=== PATIENT | female | born 1940 | race Caucasian/White ===

== ENCOUNTER 2016-04-21 20:32 | Inpatient (IN) | payer MEDICARE, OTHER ==
[2016-04-21] MEDS ORDERED: SODIUM CHLORIDE 0.9% 1,000 ML IV STA ×3 (20:39→21:09)
[2016-04-21] MEDS ORDERED: PROPOFOL 500 MG in EMPTY BAG 1 BAG IV ONE ×2 (20:45→22:34)
--- NOTE | 2016-04-21 20:51 | ED ---
General Adult HPI - General Chief complaint: Cardiac Arrest/CPR Stated complaint: cardiac Source: patient, RN notes reviewed, old records reviewed Mode of arrival: EMS Limitations: no limitations - History of Present Illness Initial comments: This is a 75-year-old female the ER for evaluation of altered mental status, unresponsiveness is a priorly one per EMS first CPR, per history and records patient's daughter was on the phone with patient and patient became unresponsive. When she got there patient remained unresponsive, patient may called EMS EMS arrived she was shocked and patient came to emergency room. Patient remains unresponsive although currently does have review of spontaneous circulation. Per report patient did lose pulse - Related Data Home Medications Medication Instructions Recorded Confirmed HYDROcodone/APAP 5-325MG [[place] 1 tab PO TID 04/25/15 04/21/16 5-325] Hydroxychloroquine Sulfate 200 mg PO BID 04/25/15 04/21/16 [Plaquenil] Losartan Potassium [Cozaar] 25 mg PO DAILY 04/25/15 04/21/16 Omeprazole [PriLOSEC] 40 mg PO BID 04/25/15 04/21/16 Sertraline [Zoloft] 100 mg PO DAILY 04/25/15 04/21/16 Simvastatin [Zocor] 20 mg PO HS 04/25/15 04/21/16 Spironolactone [Aldactone] 12.5 mg PO Q48H 04/25/15 04/21/16 Warfarin [Coumadin] 5 mg PO SUTH 04/25/15 04/21/16 traMADol HCL [Ultram] 100 mg PO DAILY PRN 04/25/15 04/21/16 Ascorbic Acid [Vitamin C] 500 mg PO DAILY 04/21/16 04/21/16 Baicalin/Catechin [Limbrel 500 mg 500 mg PO BID 04/21/16 04/21/16 Capsule] Bumetanide [Bumex] 0.5 mg PO Q48H 04/21/16 04/21/16 Carisoprodol [Soma] 350 mg PO DIRECTED 04/21/16 04/21/16 Cyanocobalamin (Vitamin B-12) 1,000 mcg PO DAILY 04/21/16 04/21/16 [Vitamin B-12] Docusate Sodium [Dok] 100 - 300 mg PO HS 04/21/16 04/21/16 Gabapentin [Neurontin] 600 mg PO BID 04/21/16 04/21/16 [place]-3 Fatty Acids/Fish Oil [Fish 1 cap PO TID 04/21/16 04/21/16 Oil 1,000 mg Softgel] RX: predniSONE 4 mg PO DAILY 04/21/16 04/21/16 Synthroid Unknown 1 tab PO DAILY 04/21/16 04/21/16 Warfarin [Coumadin] 7.5 mg PO MOTUWEFRSA 04/21/16 04/21/16 Allergies Allergy/AdvReac Type Severity Reaction Status Date / Time codeine Allergy Unknown Verified 04/21/16 20:43 meperidine HCl [From Demerol] Allergy Unknown Verified 04/21/16 20:43 Review of Systems ROS Statement: Those systems with pertinent positive or pertinent negative responses have been documented in the HPI. ROS Other: All systems not noted in ROS Statement are negative. Past Medical History Past Medical History: Atrial Fibrillation, CVA/TIA, Hyperlipidemia, Hypertension , Thyroid Disorder Additional Past Medical History / Comment(s): PMR History of Any Multi-Drug Resistant Organisms: None Reported Past Surgical History: Cardiac Ablation Additional Past Surgical History / Comment(s): lower back surgery Past Psychological History: Anxiety, Depression Smoking Status: Former smoker Past Alcohol Use History: None Reported Past Drug Use History: None Reported General Exam Limitations: altered mental status General appearance: alert, obtunded, in distress, obese Head exam: Present: atraumatic, normocephalic, normal inspection Eye exam: Present: normal appearance. Absent: scleral icterus, conjunctival injection, periorbital swelling ENT exam: Present: normal exam, mucous membranes moist Neck exam: Present: normal inspection. Absent: tenderness, meningismus, lymphadenopathy Respiratory exam: Present: normal lung sounds bilaterally. Absent: respiratory distress, wheezes, rales, rhonchi, stridor Cardiovascular Exam: Present: regular rate, normal rhythm, normal heart sounds. Absent: systolic murmur, diastolic murmur, rubs, gallop, clicks GI/Abdominal exam: Present: soft, normal bowel sounds. Absent: distended, tenderness, guarding, rebound, rigid Extremities exam: Present: normal inspection, full ROM, normal capillary refill. Absent: tenderness, pedal edema, joint swelling, calf tenderness Back exam: Present: normal inspection Neurological exam: Present: alert, oriented X3, CN II-XII intact Psychiatric exam: Present: normal affect, normal mood Skin exam: Present: warm, dry, intact, normal color. Absent: rash Course Vital Signs 04/21/16 04/21/16 04/21/16 20:33 21:09 21:22 Temperature 99.2 F Pulse Rate 97 101 H 100 Respiratory 14 18 18 Rate Blood Pressure 198/100 189/89 206/79 O2 Sat by Pulse 98 98 96 Oximetry 04/21/16 04/21/16 04/21/16 21:34 21:42 22:08 Temperature Pulse Rate 103 H 104 H 103 H Respiratory 18 18 18 Rate Blood Pressure 171/102 174/79 159/112 O2 Sat by Pulse 96 96 96 Oximetry 04/21/16 22:22 Temperature Pulse Rate 112 H Respiratory 18 Rate Blood Pressure 149/103 O2 Sat by Pulse 96 Oximetry - Reevaluation(s) Reevaluation #1: 04/21/16 22:38 Patient is showing purposeful movement Reevaluation #2: 04/21/16 22:38 Spoke with family greater than 50 minutes ago patient's condition, questions are answered EKG Findings - EKG Comments: EKG Findings:: EKG shows sinus rhythm at 94, para 214, QRS 90, QTC 490. Repeat. EKG shows sinus rhythm rate of 93, pO2 32, QRS home O2, QTC 407 Procedures - Intubation Time Out Performed: Yes Laryngoscope: Ben Size: 4 ET Tube Size: 7 ET Tube Uncuffed: Yes Tube Secured Location: teeth Tube Placement Confirmation: visualized tube passing through cords, equal breath sounds bilaterally Patient Tolerated Procedure: well Intubation Complications: none Medical Decision Making - Medical Decision Making 75 female coming in the ER for evaluation of cardiac arrest, recent GI illness, patient does have severe dehydration, patient currently is intubated sedated vital signs maintaining, CTA CT abdomen and pelvis negative for acute disease, troponin essentially negative, patient will be admitted to ICU for current evaluation and treatment, evaluation by cardiology, and intensive monitoring - Lab Data Result diagrams: 04/21/16 20:45 04/21/16 20:45 Lab Results 04/21/16 04/21/16 04/21/16 Range/Units 20:45 20:45 20:45 WBC 14.1 H (3.8-10.6) k/uL RBC 5.26 (3.80-5.40) m/uL Hgb 15.8 (11.4-16.0) gm/dL Hct 49.4 H (34.0-46.0) % MCV 94.1 (80.0-100.0) fL MCH 30.0 (25.0-35.0) pg MCHC 31.9 (31.0-37.0) g/dL RDW 13.8 (11.5-15.5) % Plt Count 295 (150-450) k/uL Neutrophils % (Manual) 65.0 % Band Neutrophils % 3.0 % Lymphocytes % (Manual) 26.0 % Monocytes % (Manual) 6.0 % Neutrophils # (Manual) 9.6 H (1.3-7.7) k/uL Lymphocytes # (Manual) 3.7 (1.0-4.8) k/uL Monocytes # (Manual) 0.8 (0-1.0) k/uL Nucleated RBCs 0 (0-0) /100 WBC Polychromasia Present PT (9.0-12.0) sec INR (<1.1) APTT (22.0-30.0) sec D-Dimer (<0.60) mg/L FEU VBG pH (7.31-7.41) VBG pCO2 (37-51) mmHg VBG HCO3 (24-28) mmol/L Sodium 143 (137-145) mmol/L Potassium 3.5 (3.5-5.1) mmol/L Chloride 106 (98-107) mmol/L Carbon Dioxide 17 L (22-30) mmol/L Anion Gap 20 mmol/L BUN 19 H (7-17) mg/dL Creatinine 1.03 (0.52-1.04) mg/dL Est GFR (MDRD) Af Amer >60 (>60 ml/min/1.73 sqM) Est GFR (MDRD) Non-Af 52 (>60 ml/min/1.73 sqM) Glucose 200 H (74-99) mg/dL Plasma Lactic Acid Carlitos (0.7-2.0) mmol/L Calcium 9.9 (8.4-10.2) mg/dL Phosphorus 5.7 H (2.5-4.5) mg/dL Magnesium 2.0 (1.6-2.3) mg/dL Total Bilirubin 1.2 (0.2-1.3) mg/dL AST 423 H (14-36) U/L ALT 339 H (9-52) U/L Alkaline Phosphatase 105 (38-126) U/L Total Creatine Kinase 174 H (30-135) U/L CK-MB (CK-2) 2.6 H* (0.0-2.4) ng/mL CK-MB (CK-2) Rel Index 1.5 Troponin I 0.092 H* (0.000-0.034) ng/mL NT-Pro-B Natriuret Pep pg/mL Total Protein 7.3 (6.3-8.2) g/dL Albumin 3.9 (3.5-5.0) g/dL 04/21/16 04/21/16 04/21/16 Range/Units 20:45 20:45 20:45 WBC (3.8-10.6) k/uL RBC (3.80-5.40) m/uL Hgb (11.4-16.0) gm/dL Hct (34.0-46.0) % MCV (80.0-100.0) fL MCH (25.0-35.0) pg MCHC (31.0-37.0) g/dL RDW (11.5-15.5) % Plt Count (150-450) k/uL Neutrophils % (Manual) % Band Neutrophils % % Lymphocytes % (Manual) % Monocytes % (Manual) % Neutrophils # (Manual) (1.3-7.7) k/uL Lymphocytes # (Manual) (1.0-4.8) k/uL Monocytes # (Manual) (0-1.0) k/uL Nucleated RBCs (0-0) /100 WBC Polychromasia PT 12.5 H (9.0-12.0) sec INR 1.3 (<1.1) APTT 22.9 (22.0-30.0) sec D-Dimer 4.24 H (<0.60) mg/L FEU VBG pH (7.31-7.41) VBG pCO2 (37-51) mmHg VBG HCO3 (24-28) mmol/L Sodium (137-145) mmol/L Potassium (3.5-5.1) mmol/L Chloride (98-107) mmol/L Carbon Dioxide (22-30) mmol/L Anion Gap mmol/L BUN (7-17) mg/dL Creatinine (0.52-1.04) mg/dL Est GFR (MDRD) Af Amer (>60 ml/min/1.73 sqM) Est GFR (MDRD) Non-Af (>60 ml/min/1.73 sqM) Glucose (74-99) mg/dL Plasma Lactic Acid Carlitos 9.5 H* (0.7-2.0) mmol/L Calcium (8.4-10.2) mg/dL Phosphorus (2.5-4.5) mg/dL Magnesium (1.6-2.3) mg/dL Total Bilirubin (0.2-1.3) mg/dL AST (14-36) U/L ALT (9-52) U/L Alkaline Phosphatase (38-126) U/L Total Creatine Kinase (30-135) U/L CK-MB (CK-2) (0.0-2.4) ng/mL CK-MB (CK-2) Rel Index Troponin I (0.000-0.034) ng/mL NT-Pro-B Natriuret Pep 4390 pg/mL Total Protein (6.3-8.2) g/dL Albumin (3.5-5.0) g/dL 04/21/16 Range/Units 20:45 WBC (3.8-10.6) k/uL RBC (3.80-5.40) m/uL Hgb (11.4-16.0) gm/dL Hct (34.0-46.0) % MCV (80.0-100.0) fL MCH (25.0-35.0) pg MCHC (31.0-37.0) g/dL RDW (11.5-15.5) % Plt Count (150-450) k/uL Neutrophils % (Manual) % Band Neutrophils % % Lymphocytes % (Manual) % Monocytes % (Manual) % Neutrophils # (Manual) (1.3-7.7) k/uL Lymphocytes # (Manual) (1.0-4.8) k/uL Monocytes # (Manual) (0-1.0) k/uL Nucleated RBCs (0-0) /100 WBC Polychromasia PT (9.0-12.0) sec INR (<1.1) APTT (22.0-30.0) sec D-Dimer (<0.60) mg/L FEU VBG pH 7.26 L (7.31-7.41) VBG pCO2 36 L (37-51) mmHg VBG HCO3 16 L (24-28) mmol/L Sodium (137-145) mmol/L Potassium (3.5-5.1) mmol/L Chloride (98-107) mmol/L Carbon Dioxide (22-30) mmol/L Anion Gap mmol/L BUN (7-17) mg/dL Creatinine (0.52-1.04) mg/dL Est GFR (MDRD) Af Amer (>60 ml/min/1.73 sqM) Est GFR (MDRD) Non-Af (>60 ml/min/1.73 sqM) Glucose (74-99) mg/dL Plasma Lactic Acid Carlitos (0.7-2.0) mmol/L Calcium (8.4-10.2) mg/dL Phosphorus (2.5-4.5) mg/dL Magnesium (1.6-2.3) mg/dL Total Bilirubin (0.2-1.3) mg/dL AST (14-36) U/L ALT (9-52) U/L Alkaline Phosphatase (38-126) U/L Total Creatine Kinase (30-135) U/L CK-MB (CK-2) (0.0-2.4) ng/mL CK-MB (CK-2) Rel Index Troponin I (0.000-0.034) ng/mL NT-Pro-B Natriuret Pep pg/mL Total Protein (6.3-8.2) g/dL Albumin (3.5-5.0) g/dL - Radiology Data Radiology results: report reviewed (Chest x-ray CTA and CT of the pelvis negative for acute disease), image reviewed Critical Care Time Critical Care Time: Yes Total Critical Care Time: 31 Disposition Clinical Impression: Cardiac arrest, Cardiopulmonary arrest Disposition[facility] Condition: Critical Referrals: Tejas Richard MD [Primary Care Provider] - 1-2 days
[2016-04-21 20:55] LABS: VBG PH 7.26 (7.31-7.41)
[2016-04-21 21:01] LABS: ALT 339 U/L (9-52); AST 423 U/L (14-36); Alkaline Phosphatase 105 U/L (38-126); Anion Gap 20 mmol/L; Blood Urea Nitrogen 19 mg/dL (7-17); Calcium 9.9 mg/dL (8.4-10.2); Carbon Dioxide 17 mmol/L (22-30); Chloride 106 mmol/L (98-107); Glucose 200 mg/dL (74-99); Non-African American GFR(MDRD) 52 (>60 ml/min/1.73 sqM); Phosphorous 5.7 mg/dL (2.5-4.5); Potassium 3.5 mmol/L (3.5-5.1); Sodium 143 mmol/L (137-145); Total Bilirubin 1.2 mg/dL (0.2-1.3); Total Protein 7.3 g/dL (6.3-8.2)
[2016-04-21 21:06] LABS: Aty Lym Flag Moderate; CH 30.4; CHCM 32.5; HCT 49.4 % (34.0-46.0); HDW 2.41; HGB 15.8 gm/dL (11.4-16.0); MCHC 31.9 g/dL (31.0-37.0); MCV 94.1 fL (80.0-100.0); Mean Platelet Volume 8.4; RBC 5.26 m/uL (3.80-5.40); RDW 13.8 % (11.5-15.5); WBC 14.1 k/uL (3.8-10.6); WBC (Perox) 14.26
[2016-04-21] MEDS ORDERED: RX INFO: IV CONTRAST WAS GIVEN 1 EACH MISC MISCELLANE PRN (21:09)
[2016-04-21 21:25] LABS: Add Differential Manual Differential
[2016-04-21 21:27] LABS: Nucleated Red Blood Cells 0 /100 WBC (0-0); Polychromasia Present; Total Cells Counted 100
[2016-04-21 21:29] LABS: Creatine Kinase MB 2.6 ng/mL (0.0-2.4); Troponin I 0.092 ng/mL (0.000-0.034)
[2016-04-21 21:40] LABS: INR 1.3 (<1.1); Partial Thromboplastin Time 22.9 sec (22.0-30.0); Prothrombin Time 12.5 sec (9.0-12.0)
--- NOTE | 2016-04-21 22:12 | CT ---
EXAMINATION TYPE: CT angio chest DATE OF EXAM: 04/21/2016 10:07 PM COMPARISON: 04/25/2015 HISTORY: Unresponsive. CT DLP: 1483.8 mGycm CONTRAST: CT chest with contrast and 3D reconstruction with MIP imaging is performed with IV Contrast, patient injected with 80 mL of Visipaque 320. Contrast-enhanced CT of the chest was performed through the course of the pulmonary arteries with aiden g and mediastinal window settings submitted. 3D reconstruction with MIP imaging was also performed. PULMONARY ARTERIES: The pulmonary arteries and their major tributaries are patent. I do not see aliya dence for sizable filling defect to suggest pulmonary embolic process. LUNGS: Endotracheal tube is appropriately positioned. The lungs are clear and free of infiltrate. Mil d linear basilar atelectasis. No pulmonary nodule or mass is detected. No pleural effusion. MEDIASTINUM: Thoracic aorta is of normal caliber . The heart is not enlarged. No evidence for media stinal mass. No mediastinal lymph nodes greater than 1cm. HILAR STRUCTURES: No evidence for mass. No hilar lymph nodes greater than 1 cm. UPPER ABDOMEN: No significant abnormality is seen. NG tube is seen coursing into the stomach. IMPRESSION: 1. No evidence for Pulmonary embolism at this time.
--- NOTE | 2016-04-21 22:15 | CT ---
EXAMINATION TYPE: CT abdomen pelvis w con DATE OF EXAM: 04/21/2016 10:07 PM COMPARISON: NONE HISTORY: Unresponsive CT DLP: 1483.8 mGycm CONTRAST: CT scan of the abdomen and pelvis is performed without Oral Contrast and with IV Contrast, patient in jected with 80 mL of Visipaque 320. Patient motion limits examination. FINDINGS: LUNG BASES-: No visible nodule. No infiltrate. LIVER/GB: Cholecystectomy changes seen. No space occupying hepatic lesion. Biliary tree is of norm al caliber. PANCREAS: No inflammation. No distinct mass. SPLEEN: No splenic enlargement. No lesion seen. ADRENALS: No nodule. No thickening. KIDNEYS/BLADDER: No hydronephrosis. No nephrolithiasis. No disctinct renal mass. Dominguez catheter is in place. BOWEL: Normal appendix. Normal bowel caliber. No inflammation. NG tube is seen within the stomach. GENITAL ORGANS: No gross abnormality. LYMPH NODES: No greater than 1cm abdominal or pelvic lymph nodes are appreciated. AORTA: No significant abnormality. OSSEOUS STRUCTURES: Degenerative changes lumbar spine. OTHER: No significant additional abnormality is seen. IMPRESSION: 1. No significant abnormality to account for the patient's symptoms.
[2016-04-21] MEDS ORDERED: NITROGLYCERIN SL TABS 0.4 MG TAB SUBLINGUAL PRN (22:38)
[2016-04-21] MEDS ORDERED: NALOXONE 0.4 MG/ML 1 ML VIAL IV PRN (22:38)
[2016-04-21 22:43] LABS: Appearance,Urine Cloudy (Clear); Bacteria,Urine Rare /hpf; Bilirubin,Urine Negative (Negative); Glucose,Urine (UA) Trace (Negative); Ketones,Urine 1+ (Negative); Leukocyte Esterase,Urine Negative (Negative); Nitrite,Urine Negative (Negative); Particle Count 10394; Protein,Urine 2+ (Negative); RBC,Urine 7 /hpf (0-5); Specific Gravity,Urine 1.013 (1.001-1.035); UA Billing (MACRO vs. MICRO) MICRO; Urobilinogen,Urine <2.0 mg/dL (<2.0); WBC,Urine 2 /hpf (0-5)
[2016-04-21] MEDS ORDERED: LORazepam 2 MG/ML SYRINGE IV STA (23:30)
[2016-04-21 23:40] LABS: Glucose,Whole Blood 196 mg/dL (75-99)
[2016-04-21 23:44] LABS: ABG PH 7.38 (7.35-7.45)
[2016-04-21 23:47] LABS: ABG Base Excess -7.5 mmol/L; ABG HCO3 17 mmol/L (21-25); ABG PCO2 29 mmHg (35-45); ABG PO2 220 mmHg (83-108); ABG TCO2 18 mmol/L (19-24)
--- NOTE | 2016-04-21 23:52 | CT ---
Exam: CT HEAD Without Contrast INDICATION: cpr TECHNIQUE: Multiple, contiguous 3 mm axial cuts of the brain are obtained from the posterior fossa to the cranial vault. Sagittal and coronal reformatted images provided. No IV contrast is administered. CT those index volume 57 mGy. , DLP 1098 mGy/cm COMPARISON: None FINDINGS: No intracranial hemorrhage, abnormal intra- or extra-axial collections or parenchymal lesions are seen. There are involutional changes with prominence of the sulci, basal cisterns and ventricles. Scattered white matter hypoattenuations are present, likely from small vessel disease. The moon-white differentiation is preserved. No evidence of mass effect, midline shift, or edema. The osseous structures are unremarkable. The visualized portions of the paranasal sinuses are clear. IMPRESSION: 1. No acute intracranial hemorrhage or acute intracranial process.. 2. Involutional changes with small vessel disease.
[2016-04-22] MEDS ORDERED: Potassium Replacement Protocol 1 EACH MISC MISCELLANE PRN (00:06)
[2016-04-22] MEDS: PROPOFOL 500 MG in EMPTY BAG 1 BAG IV SCH ×4 (00:30→06:00)
[2016-04-22] MEDS ORDERED: cloNIDine 0.3 MG/24HR PATCH 1 PATCH PATCH TRANSDERM SCH ×2 (00:45→13:30)
[2016-04-22] MEDS: POTASSIUM CHLORIDE 10 MEQ, LIDOCAINE 2% INJ 10 MG in SODIUM CHLORIDE 0.9% 100 ML IV SCH ×2 (01:19→02:26)
[2016-04-22] MEDS: SODIUM CHLORIDE 0.9% 1,000 ML IV SCH ×3 (01:20→19:28)
[2016-04-22] MEDS: HYDROmorphone 2 MG/ML 1 ML SYRINGE IVP PRN (01:57)
[2016-04-22 03:20] LABS: ALT 268 U/L (9-52); AST 273 U/L (14-36); Alkaline Phosphatase 81 U/L (38-126); Anion Gap 10 mmol/L; Blood Urea Nitrogen 17 mg/dL (7-17); Calcium 8.4 mg/dL (8.4-10.2); Carbon Dioxide 22 mmol/L (22-30); Chloride 112 mmol/L (98-107); Cholesterol 130 mg/dL (<200); Glucose 183 mg/dL (74-99); HDL Cholesterol 48 mg/dL (40-60); Magnesium 1.6 mg/dL (1.6-2.3); Non-African American GFR(MDRD) >60 (>60 ml/min/1.73 sqM); Phosphorous 3.3 mg/dL (2.5-4.5); Potassium 3.2 mmol/L (3.5-5.1); Sodium 144 mmol/L (137-145); Total Bilirubin 0.7 mg/dL (0.2-1.3); Total Protein 5.9 g/dL (6.3-8.2); Triglycerides 86 mg/dL (<150)
[2016-04-22 03:40] LABS: Aty Lym Flag Moderate; CH 30.3; CHCM 32.5; HCT 45.7 % (34.0-46.0); HDW 2.42; HGB 14.1 gm/dL (11.4-16.0); MCH 28.9 pg (25.0-35.0); MCHC 30.8 g/dL (31.0-37.0); MCV 93.7 fL (80.0-100.0); RBC 4.87 m/uL (3.80-5.40); RDW 13.9 % (11.5-15.5); WBC 18.3 k/uL (3.8-10.6); WBC (Perox) 18.74
[2016-04-22 03:51] LABS: Troponin I 1.12 ng/mL (0.000-0.034)
[2016-04-22 04:19] LABS: Add Differential Manual Differential
[2016-04-22 04:21] LABS: Nucleated Red Blood Cells 0 /100 WBC (0-0); Total Cells Counted 100
[2016-04-22 04:22] LABS: Manual Review Performed
[2016-04-22] MEDS ORDERED: Magnesium Replacement Protocol 1 EACH MISC MISCELLANE PRN (04:52)
[2016-04-22 05:10] LABS: ABG Base Excess -5.1 mmol/L; ABG HCO3 20 mmol/L (21-25); ABG Oxygen Saturation 98.9 % (94-97); ABG PCO2 36 mmHg (35-45); ABG PH 7.35 (7.35-7.45); ABG PO2 134 mmHg (83-108); ABG TCO2 21 mmol/L (19-24)
[2016-04-22 07:29] LABS: Glucose,Whole Blood 111 mg/dL (75-99)
[2016-04-22] MEDS: MAGNESIUM SULFATE-D5W PMX 1 GM in DEXTROSE/WATER 1 100ML.BAG IVPB SCH ×4 (07:29→19:53)
[2016-04-22 07:40] LABS: Glucose,Whole Blood 194 mg/dL (75-99)
--- NOTE | 2016-04-22 08:19 | XR ---
EXAMINATION TYPE: XR chest 1V DATE OF EXAM: 04/22/2016 6:32 AM COMPARISON: Prior chest x-ray 22 April 2016 HISTORY: Intubation TECHNIQUE: Single frontal view of the chest is obtained. FINDINGS: Endotracheal tube, NG tube are overlying appropriate positions. The heart remains enlarged . There are overlying cardiac leads. No pneumothorax. Pulmonary vascularity and zina not significantl y changed. Interstitium mildly increased. Patient is rotated. IMPRESSION: Marked cardiomegaly. Difficult to exclude a component of volume overload.
[2016-04-22] MEDS: IPRATROPIUM-ALBUTEROL 3 ML NEB INHALATION PRN ×3 (08:43→15:06)
[2016-04-22 08:55] LABS: Anion Gap 10 mmol/L; Carbon Dioxide 20 mmol/L (22-30); Chloride 116 mmol/L (98-107); Glucose 130 mg/dL (74-99); Non-African American GFR(MDRD) 58 (>60 ml/min/1.73 sqM); Sodium 146 mmol/L (137-145)
[2016-04-22] MEDS: CHLORHEXIDINE GLUCONATE 15 ML CUP MUCOUS MEM SCH ×2 (09:02→20:57)
[2016-04-22] MEDS: PANTOPRAZOLE 40 MG/10 ML VIAL IV SCH (09:02)
[2016-04-22 09:03] LABS: Potassium 4.2 mmol/L (3.5-5.1)
[2016-04-22 09:04] LABS: Blood Urea Nitrogen 17 mg/dL (7-17)
--- NOTE | 2016-04-22 09:23 | XR ---
EXAMINATION TYPE: XR chest 1V portable DATE OF EXAM: 04/21/2016 8:53 PM HISTORY: Shortness of breath. COMPARISON: 04/25/2015 TECHNIQUE: Single view of the chest is submitted. FINDINGS: Endotracheal tube is appropriately placed and demonstrates its distal tip 3.3 cm from the nika. Demonstrated are scattered senescent parenchymal change. There is no evidence for focal infiltrate. The heart is enlarged. Hilar and mediastinal structures are within normal limits. Degenerative changes are seen of the dorsal spine. IMPRESSION: 1. Chronic changes without evidence for acute pulmonary disease. 2. Endotracheal tube as noted
[2016-04-22 09:31] LABS: Creatine Kinase MB 9.2 ng/mL (0.0-2.4); Troponin I 1.01 ng/mL (0.000-0.034)
--- NOTE | 2016-04-22 09:32 | ECHOF ---
Referral Reason:cpa MEASUREMENTS -------- HEIGHT: 165.1 cm WEIGHT: 100.2 kg BP: 142/57 RVIDd: 2.4 cm (< 3.3) IVSd: 1.2 cm (0.6 - 1.1) LVIDd: 4.5 cm (3.9 - 5.3) LVPWd: 1.2 cm (0.6 - 1.1) IVSs: 2.0 cm LVIDs: 3.2 cm LVPWs: 1.3 cm LA Diam: 3.0 cm (2.7 - 3.8) LAESV Index (A-L): 24.93 ml/m Ao Diam: 3.1 cm (2.0 - 3.7) AV Cusp: 1.6 cm (1.5 - 2.6) MV EXCURSION: 12.690 mm (> 18.000) MV EF SLOPE: 9 mm/s (70 - 150) EPSS: 0.8 cm MV E Rod: 0.77 m/s MV DecT: 184 ms MV A Rod: 0.28 m/s MV E/A Ratio: 2.73 AV maxP.98 mmHg AV meanP.43 mmHg RAP: 5.00 mmHg RVSP: 31.76 mmHg FINDINGS -------- This was a technically adequate study. The left ventricular size is normal. There is borderline concentric left ventricular hypertrophy. Overall left ventricular systolic function is normal with, an EF between 55 - 60 %. Apical hypetrophy with 17 mm wall thickness The right ventricle is normal in size and function. Normal LA size by volume 22+/-6 ml/m2. The right atrium is normal in size. Aortic valve is trileaflet and is mildly thickened. Mild mitral annular calcification present. The tricuspid valve appears structurally normal. Mild tricuspid regurgitation present. The pulmonic valve was not well visualized. The aortic root size is normal. There is no pericardial effusion. CONCLUSIONS -------- 1. This was a technically adequate study. 2. Mild mitral annular calcification present. 3. The tricuspid valve appears structurally normal. 4. Mild tricuspid regurgitation present. 5. The pulmonic valve was not well visualized. 6. The aortic root size is normal. 7. There is no pericardial effusion. 8. The left ventricular size is normal. 9. There is borderline concentric left ventricular hypertrophy. 10. Overall left ventricular systolic function is normal with, an EF between 55 - 60 %. 11. Apical hypetrophy with 17 mm wall thickness 12. The right ventricle is normal in size and function. 13. Normal LA size by volume 22+/-6 ml/m2. 14. The right atrium is normal in size. 15. Aortic valve is trileaflet and is mildly thickened. STEAM ENGINEER: Bernarda Larry RDCS
[2016-04-22] MEDS: LEVOTHYROXINE 100 MCG TAB PO SCH (10:20)
[2016-04-22] MEDS: ENOXAPARIN 40 MG/0.4 ML SYRINGE SQ SCH ×2 (10:20→10:33)
[2016-04-22] MEDS ORDERED: HEPARIN SODIUM,PORCINE 5,000 UNIT/ML 1 ML VIAL IV PRN (10:21)
[2016-04-22] MEDS: HYDROCORTISONE SUCCINATE 100 MG/2 ML VIAL IV SCH ×2 (10:22→15:53)
[2016-04-22] MEDS: LEVOTHYROXINE 75 MCG TAB PO SCH (10:23)
[2016-04-22] MEDS: GABAPENTIN 300 MG CAP PO SCH ×2 (10:23→20:59)
[2016-04-22] MEDS ORDERED: DEXTROSE 5% IN WATER 100 ML with AMIODARONE 150 MG IV ONE (10:57)
[2016-04-22] MEDS ORDERED: AMIODARONE 450 MG in DEXTROSE 5% IN WATER 250 ML IV SCH ×2 (11:00)
[2016-04-22] MEDS: ASPIRIN 81 MG CHEW PO SCH (11:02)
[2016-04-22] MEDS: METOPROLOL TARTRATE 25 MG TAB PO SCH ×2 (11:03→22:54)
[2016-04-22] MEDS: HEPARIN SODIUM,PORCINE/D5W PMX 25,000 UNIT in DEXTROSE/WATER 1 500ML.BAG IV SCH (11:03)
[2016-04-22 11:14] LABS: Aty Lym Flag Moderate; CH 30.2; CHCM 32.6; HCT 45.3 % (34.0-46.0); HGB 14.4 gm/dL (11.4-16.0); MCH 29.5 pg (25.0-35.0); MCHC 31.8 g/dL (31.0-37.0); MCV 92.9 fL (80.0-100.0); Mean Platelet Volume 7.1; RBC 4.88 m/uL (3.80-5.40); RDW 13.9 % (11.5-15.5); WBC 16.6 k/uL (3.8-10.6); WBC (Perox) 17.86
[2016-04-22 11:41] LABS: INR 1.2 (<1.1); Partial Thromboplastin Time 23.7 sec (22.0-30.0); Prothrombin Time 11.8 sec (9.0-12.0)
[2016-04-22 11:42] LABS: Add Differential Manual Differential
[2016-04-22 11:43] LABS: Nucleated Red Blood Cells 0 /100 WBC (0-0); Total Cells Counted 100
[2016-04-22 11:44] LABS: Manual Review Performed
[2016-04-22 11:45] LABS: RBC Morphology Normal
[2016-04-22] MEDS ORDERED: cloNIDine 0.1 MG/24HR PATCH 1 PATCH PATCH TRANSDERM SCH (12:00)
[2016-04-22] MEDS ORDERED: LABETALOL SYRINGE 5 MG/ML IVP PRN ×2 (12:46→15:12)
[2016-04-22 13:01] LABS: Glucose,Whole Blood 167 mg/dL (75-99)
[2016-04-22] MEDS: INSULIN LISPRO (humaLOG) 300 UNIT/3 ML VIAL SQ SCH ×2 (13:28→19:34)
[2016-04-22 14:08] LABS: Hemoglobin A1C 5.8 % (4.2-6.1)
--- NOTE | 2016-04-22 14:41 | US ---
EXAMINATION TYPE: US carotid duplex BILAT DATE OF EXAM: 04/22/2016 2:19 PM COMPARISON: NONE CLINICAL HISTORY: cardiac arrest. Altered mental status, patient unresponsive EXAM MEASUREMENTS: RIGHT: Peak Systolic Velocity (PSV) cm/sec ----- Right CCA: 61.2 ----- Right ICA: 71.6 ----- Right ECA: 67.7 ICA/CCA ratio: 1.2 RIGHT: End Diastole cm/sec ----- Right CCA: 10.3 ----- Right ICA: 9.0 ----- Right ECA: 7.7 LEFT: Peak Systolic Velocity (PSV) cm/sec ----- Left CCA: 55.9 ----- Left ICA: 61.2 ----- Left ECA: 79.4 ICA/CCA ratio: 1.1 LEFT: End Diastole cm/sec ----- Left CCA: 8.7 ----- Left ICA: 16.8 ----- Left ECA: 6.4 VERTEBRALS (direction of flow): Right Vertebral: Antegrade Left Vertebral: questionable retrograde TECHNOLOGIST IMPRESSION: intubated, unresponsive patient, technically challenging. Minimal atherosclerotic changes in bilateral bulbs, no hemodynamic stenosis, question of retrograde f low in left vertebral Arrhythmia may be present. Grayscale, color Doppler, spectral Doppler imaging performed of the caroti d arteries. IMPRESSION: No hemodynamic significant stenosis of the proximal internal carotid arteries bilaterall y by Doppler criteria, and indirect measurement of carotid stenosis. 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 Criteria for Assigning % of Stenosis / Diameter reduction (Estimation based on the indirect measurements of the internal carotid artery velocities (ICA PSV). 1. Normal (no stenosis)=ICA PSV < 125 cm/s: ratio < 2.0: ICA EDV<40 cm/s. 2. Less than 50% stenosis=ICA PSV < 125 cm/s: ratio < 2.0: ICA EDV<40 cm/s. 3. 50 to 69% stenosis=ICA PSV of 125 to 230 cm/s: ration 2.0 ? 4.0: ICA EDV 40-100 cm/s. 4. Greater than 70% stenosis to near occlusion= ICA PSV > 230 cm/s: ratio > 4.0: ICA EDV > 100 cm/s. 5. Near occlusion= ICA PSV velocities may be low or undetectable: variable ratio and ICA EDV. 6. Total occlusion=unable to detect flow.
--- NOTE | 2016-04-22 14:46 | P.HPIM ---
History of Present Illness H&P Date: 04/22/16 Chief Complaint: Acute cardiopulmonary arrest This is a 75-year-old female one of my patient with a previous medical history significant for hypertension and hypertensive cardio vascular disease with left ventricular hypertrophy, hyperlipidemia, history of atrial flutter/fibrillation status post 3 ablation therapy under the care of cardiology , rheumatoid arthritis, polymyalgia rheumatica, fibromyalgia, hypothyroidism, patient developed to have a significant upper respiratory tract infection that was treated about 10 days ago and the patient was feeling fine up until Wednesday when she started to feel bad again, yesterday she was talking to her daughter on the phone and the patient was having episodes of nausea vomiting and diarrhea for the past 48 hours, felt generally weak,and while she was talking with her daughter on the phone trying to get back to see her patient became unresponsive and the patient daughter got there and patient was laying in bed unresponsive according to her there was a pulse of that time period and after that she lost her pulse and she started CPR by herself and she called 911 at the same time and EMS where there within 5 minutes and according to the daughter due to the total downtime was not more than 10 minutes probably 15 minutes patient was intubated in the scene she was shocked once and she was transported to [facility] where she was placed on the ventilator she was given IV fluid resuscitation she was admitted to the hospital she had a computed tomography scan of the chest abdomen and pelvis without any acute abnormalities there was no evidence of pulmonary embolism, she had a computed tomography scan of the brain that did not show any evidence of acute abnormalities, patient was admitted to the hospital she was placed on the ventilator and she was seen in consultation by pulmonary medicine as well as by cardiology, her cardiac enzymes came back positive her troponin was slightly elevated suggestive of non-ST elevation OR. Review of Systems ROS unobtainable: due to endotracheal tube, due to mental status Past Medical History Past Medical History: Atrial Fibrillation, Atrial Flutter, Coronary Artery Disease (CAD), CVA/TIA, Fibromyalgia, GERD/Reflux, Hyperlipidemia, Hypertension , Myocardial Infarction (non Q-wave), Osteoarthritis (OA), Rheumatoid Arthritis (RA), Thyroid Disorder Additional Past Medical History / Comment(s): Polymyalgia rheumatica, hypothyroidism, hyperlipidemia, atrial fibrillation/flutter status post previous cardiac ablation History of Any Multi-Drug Resistant Organisms: None Reported Past Surgical History: Cardiac Ablation, Section, Cholecystectomy, Tonsillectomy Additional Past Surgical History / Comment(s): lower back surgery x2 Past Anesthesia/Blood Transfusion Reactions: No Reported Reaction Past Psychological History: Anxiety, Depression Smoking Status: Former smoker (Patient used to smoke a pack every day for about 10-15 years and she quit about 30 years ago.) Past Alcohol Use History: None Reported Past Drug Use History: None Reported - Past Family History Mother Family Medical History: Cancer (Mother at age 66 from throat cancer metastasized to the lung.) Additional Family Medical History / Comment(s): lung cancer, depression Father Family Medical History: AICD/Pacemaker, CVA/TIA (Father at age 71 from CAD , he had a permanent pacemaker, and he developed to have a 2 CVA) Brother(s) Family Medical History: AFIB (Patient has 2 brothers one of them with atrial fibrillation and other one CAD post CABG.), Coronary Artery Disease (CAD) Sister(s) Family Medical History: No Reported History (Patient has one sister who major medical problems.) Daughter(s) Family Medical History: No Reported History (Patient has one daughter major medical problems.) Medications and Allergies Home Medications Medication Instructions Recorded Confirmed Type HYDROcodone/APAP 5-325MG [[place] 1 tab PO TID 04/25/15 04/21/16 History 5-325] Hydroxychloroquine Sulfate 200 mg PO BID 04/25/15 04/21/16 History [Plaquenil] Losartan Potassium [Cozaar] 25 mg PO DAILY 04/25/15 04/21/16 History Omeprazole [PriLOSEC] 40 mg PO BID 04/25/15 04/21/16 History Sertraline [Zoloft] 100 mg PO DAILY 04/25/15 04/21/16 History Simvastatin [Zocor] 20 mg PO HS 04/25/15 04/21/16 History Spironolactone [Aldactone] 12.5 mg PO Q48H 04/25/15 04/21/16 History Warfarin [Coumadin] 5 mg PO SUTH 04/25/15 04/21/16 History traMADol HCL [Ultram] 100 mg PO DAILY PRN 04/25/15 04/21/16 History Ascorbic Acid [Vitamin C] 500 mg PO DAILY 04/21/16 04/21/16 History Baicalin/Catechin [Limbrel 500 mg 500 mg PO BID 04/21/16 04/21/16 History Capsule] Bumetanide [Bumex] 0.5 mg PO Q48H 04/21/16 04/21/16 History Carisoprodol [Soma] 350 mg PO DIRECTED 04/21/16 04/21/16 History Cyanocobalamin (Vitamin B-12) 1,000 mcg PO DAILY 04/21/16 04/21/16 History [Vitamin B-12] Docusate Sodium [Dok] 100 - 300 mg PO HS 04/21/16 04/21/16 History Gabapentin [Neurontin] 600 mg PO BID 04/21/16 04/21/16 History [place]-3 Fatty Acids/Fish Oil [Fish 1 cap PO TID 04/21/16 04/21/16 History Oil 1,000 mg Softgel] Warfarin [Coumadin] 7.5 mg PO MOTUWEFRSA 04/21/16 04/21/16 History predniSONE 4 mg PO DAILY 04/21/16 04/21/16 History Levothyroxine Sodium [Synthroid] 175 mcg PO DAILY 04/22/16 04/22/16 History Allergies Allergy/AdvReac Type Severity Reaction Status Date / Time codeine Allergy Unknown Verified 04/21/16 20:43 meperidine HCl [From Demerol] Allergy Unknown Verified 04/21/16 20:43 Physical Exam Vitals: Vital Signs Temp Pulse Pulse Resp BP BP Pulse Ox 04/22/16 13:00 99.0 F 92 26 H 188/82 97 04/22/16 12:00 80 32 H 175/82 97 04/22/16 11:50 81 04/22/16 11:30 78 04/22/16 11:00 89 50 H 176/84 96 04/22/16 10:00 86 25 H 197/94 97 04/22/16 09:11 79 04/22/16 09:00 66 23 123/57 99 04/22/16 08:50 72 04/22/16 08:00 68 24 119/57 98 04/22/16 07:00 98.4 F 59 L 23 113/57 98 04/22/16 06:00 67 23 96/49 97 04/22/16 05:00 71 23 98 04/22/16 04:00 98.3 F 85 24 85/54 97 04/22/16 03:00 95 24 93/58 97 04/22/16 02:00 100 23 93/58 98 04/22/16 01:00 104 H 29 H 224/113 98 04/22/16 00:00 97.8 F 99 29 H 194/98 99 04/21/16 23:45 98.1 F 110 H 18 147/76 98 04/21/16 23:41 99 04/21/16 23:15 102 H 18 153/94 98 04/21/16 23:07 97.8 F 111 H 24 197/98 99 04/21/16 23:00 102 H 18 137/96 98 04/21/16 22:53 101 H 18 135/79 98 04/21/16 22:43 107 H 18 147/69 98 Intake and Output 04/21/16 04/22/16 04/22/16 22:59 06:59 14:59 Intake Total 2095.143 2022.355 Output Total 925 563 Balance 6952.929 3534.355 Intake: IV 700 700 Sodium Chloride 0.9% 1, 700 700 000 ml @ 100 mls/hr IV . Q10H STA Rx#:[id number] Intake, IV Titration 2898.979 1363.355 Amount Amiodarone 450 mg In 99.9 Dextrose 5% in Water 250 ml @ 1 MG/MIN 34.53 mls/ hr IV .Q7H31M MAGAN Rx#: [id number] Dextrose 5% in Water 100 100 ml @ 618 mls/hr IV .Q10M ONE with Amiodarone 150 mg Rx#:[id number] Heparin Sodium,Porcine/ 57.3 D5w Pmx 25,000 unit In Dextrose/Water 1 500ml. bag @ 9.95 UNITS/KG/HR 19 .99 mls/hr IV .Q24H MAGAN Rx#:[id number] Magnesium Sulfate-D5w Pmx 100 1 gm In Dextrose/Water 1 100ml.bag @ 100 mls/hr IVPB Q1H MAGAN Rx#: [id number] Potassium Chloride 10 meq 200 Lidocaine 2% Inj 10 mg In Sodium Chloride 0.9% 100 ml @ 100 mls/hr IV Q1HR MAGAN Rx#:[id number] Propofol 500 mg In Empty 20.1 Bag 1 bag @ Titrate IV . Q0M ONE Rx#:[id number] Propofol 500 mg In Empty 96.143 46.055 Bag 1 bag @ Titrate IV . Q0M [facility] Rx#:[id number] Sodium Chloride 0.9% 1, 999 999 000 ml @ 100 mls/hr IV . Q10H MAGAN Rx#:[id number] Output: Urine 925 363 Emesis 200 Other: Voiding Method Indwelling Catheter Indwelling Catheter Weight 100.5 kg 100.5 kg Patient Weight 04/23/16 06:59 Weight 100.5 kg - Constitutional General appearance: obese, severe distress - EENT Eyes: no EOMI, no PERRLA, no scleral icterus, no normal appearance ENT: other (ET tube in andOGT in place.) Ears: bilateral: normal - Neck Neck: no lymphadenopathy, no rigidity, no stridor, no thyromegaly Carotids: bilateral: upstroke normal Thyroid: bilateral: normal size - Respiratory Respiratory: bilateral: diminished, negative: dullness, rales, rhonchi, wheezing , prolonged expiration, prolonged inspiration - Cardiovascular Rhythm: regular Heart sounds: normal: S1, S2 Abnormal Heart Sounds: systolic murmur, no rub - Gastrointestinal General gastrointestinal: decreased bowel sounds, soft, no splenomegaly, no tenderness, no umbilical hernia, no ventral hernia - Integumentary Integumentary: normal, normal turgor - Neurologic Neurologic: focal deficits - Psychiatric Psychiatric: no A&O x's 3, no appropriate affect, no intact judgment & insight Results CBC & Chem 7: 04/22/16 10:55 04/22/16 08:25 Labs: Abnormal Lab Results - Last 24 Hours (Table) 04/21/16 04/21/16 04/22/16 Range/Units 23:20 23:38 00:10 WBC (3.8-10.6) k/uL MCHC (31.0-37.0) g/dL Neutrophils # (Manual) (1.3-7.7) k/uL Lymphocytes # (Manual) (1.0-4.8) k/uL ABG pCO2 29 L (35-45) mmHg ABG pO2 220 H (83-108) mmHg ABG HCO3 17 L (21-25) mmol/L ABG Total CO2 18 L (19-24) mmol/L ABG O2 Saturation 99.0 H (94-97) % Sodium (137-145) mmol/L Potassium (3.5-5.1) mmol/L Chloride (98-107) mmol/L Carbon Dioxide (22-30) mmol/L Glucose (74-99) mg/dL POC Glucose (mg/dL) 196 H (75-99) mg/dL Plasma Lactic Acid [place] 2.7 H* (0.7-2.0) mmol/L Calcium (8.4-10.2) mg/dL AST (14-36) U/L ALT (9-52) U/L Total Creatine Kinase (30-135) U/L CK-MB (CK-2) (0.0-2.4) ng/mL Troponin I (0.000-0.034) ng/mL Total Protein (6.3-8.2) g/dL Albumin (3.5-5.0) g/dL 04/22/16 04/22/16 04/22/16 Range/Units 02:35 02:35 02:35 WBC 18.3 H (3.8-10.6) k/uL MCHC 30.8 L (31.0-37.0) g/dL Neutrophils # (Manual) 17.4 H (1.3-7.7) k/uL Lymphocytes # (Manual) (1.0-4.8) k/uL ABG pCO2 (35-45) mmHg ABG pO2 (83-108) mmHg ABG HCO3 (21-25) mmol/L ABG Total CO2 (19-24) mmol/L ABG O2 Saturation (94-97) % Sodium (137-145) mmol/L Potassium 3.2 L (3.5-5.1) mmol/L Chloride 112 H (98-107) mmol/L Carbon Dioxide (22-30) mmol/L Glucose 183 H (74-99) mg/dL POC Glucose (mg/dL) (75-99) mg/dL Plasma Lactic Acid [place] (0.7-2.0) mmol/L Calcium (8.4-10.2) mg/dL AST 273 H (14-36) U/L ALT 268 H (9-52) U/L Total Creatine Kinase 287 H (30-135) U/L CK-MB (CK-2) 6.0 H* (0.0-2.4) ng/mL Troponin I 1.120 H* (0.000-0.034) ng/mL Total Protein 5.9 L (6.3-8.2) g/dL Albumin 3.1 L (3.5-5.0) g/dL 04/22/16 04/22/16 04/22/16 Range/Units 05:00 07:27 08:25 WBC (3.8-10.6) k/uL MCHC (31.0-37.0) g/dL Neutrophils # (Manual) (1.3-7.7) k/uL Lymphocytes # (Manual) (1.0-4.8) k/uL ABG pCO2 (35-45) mmHg ABG pO2 134 H (83-108) mmHg ABG HCO3 20 L (21-25) mmol/L ABG Total CO2 (19-24) mmol/L ABG O2 Saturation 98.9 H (94-97) % Sodium (137-145) mmol/L Potassium (3.5-5.1) mmol/L Chloride (98-107) mmol/L Carbon Dioxide (22-30) mmol/L Glucose (74-99) mg/dL POC Glucose (mg/dL) 111 H (75-99) mg/dL Plasma Lactic Acid [place] (0.7-2.0) mmol/L Calcium (8.4-10.2) mg/dL AST (14-36) U/L ALT (9-52) U/L Total Creatine Kinase 549 H (30-135) U/L CK-MB (CK-2) 9.2 H* (0.0-2.4) ng/mL Troponin I 1.010 H* (0.000-0.034) ng/mL Total Protein (6.3-8.2) g/dL Albumin (3.5-5.0) g/dL 04/22/16 04/22/16 04/22/16 Range/Units 08:25 10:55 13:00 WBC 16.6 H (3.8-10.6) k/uL MCHC (31.0-37.0) g/dL Neutrophils # (Manual) 15.3 H (1.3-7.7) k/uL Lymphocytes # (Manual) 0.3 L (1.0-4.8) k/uL ABG pCO2 (35-45) mmHg ABG pO2 (83-108) mmHg ABG HCO3 (21-25) mmol/L ABG Total CO2 (19-24) mmol/L ABG O2 Saturation (94-97) % Sodium 146 H (137-145) mmol/L Potassium (3.5-5.1) mmol/L Chloride 116 H (98-107) mmol/L Carbon Dioxide 20 L (22-30) mmol/L Glucose 130 H (74-99) mg/dL POC Glucose (mg/dL) 167 H (75-99) mg/dL Plasma Lactic Acid [place] (0.7-2.0) mmol/L Calcium 8.0 L (8.4-10.2) mg/dL AST (14-36) U/L ALT (9-52) U/L Total Creatine Kinase (30-135) U/L CK-MB (CK-2) (0.0-2.4) ng/mL Troponin I (0.000-0.034) ng/mL Total Protein (6.3-8.2) g/dL Albumin (3.5-5.0) g/dL Thrombosis Risk Factor Assmnt - DVT/VTE Prophylaxis DVT/VTE Prophylaxis: Pharmacologic Prophylaxis ordered, Mechanical Prophylaxis ordered - Choose All That Apply Each Factor Represents 1 point: Medical pt on bed rest, Obesity (BMI >25) Each Risk Factor Represents 2 Points: Age 61-74 years, Patient confined to bed Thrombosis Risk Factor Assessment Total Risk Factor Score: 6 Thrombosis Risk Factor Assessment Level: High Risk Assessment and Plan Plan: Assessment and plan: 1. Acute ventilator-dependent respiratory failure due to acute cardiopulmonary arrest followed by DC cardioversion 1 on the scene currently on the ventilator. Continue current vent management as per pulmonary as well as cardiology, we will obtain the brain scan at this time as the patient was taken off the sedation and she still have no appropriate response, we will continue to monitor the patient in intensive care unit at this point in time continue supportive care, continue IV fluid, continue DVT prophylaxis, continue GI prophylaxis, talked to her daughter and her brother at bed side and prognosis continues to be very guarded. 2. History of atrial fibrillation/flutter post-ablation 3. Currently the patient on heparin drip. 3. Hypertension and hypertensive cardiovascular disease. Continue labetalol 10 mg IV push every 4 hours as needed, continue metoprolol 25 mg per OGT twice every day, continue Catapres patch 0.1 mg once every week. 4. Cardiac arrhythmia with non-ST elevation OR. Continue aspirin 325 mg orally once every day, continue heparin drip, continue amiodarone drip, cardiology consultation, echocardiogram was reviewed showed normal LV function with mild mitral and tricuspid regurgitation. 5. Hypothyroidism. Continue levothyroxine 175 g per OGT once every day. 6. Hyperlipidemia. Continue Lipitor. 7. Polymyalgia rheumatica. Currently on hydrocortisone 100 mg IV push every 8 hours. 8. Fibromyalgia. Continue gabapentin 600 mg orally twice every day. 9. History of CVA/TIA. Continue anticoagulation for life. 10. DVT prophylaxis. Continue heparin drip for now. 11. GI prophylaxis. Continue Protonix 40 mg IV push every 24 hours. 12. Patient is a full code.
--- NOTE | 2016-04-22 15:26 | P.CNPUL ---
History of Present Illness Consult date: 04/22/16 Chief complaint: cardiac arrest History of present illness: 75-year-old female patient with known history of chronic atrial fibrillation status post ablation procedure that was done at [facility], hypertension and hypertensive heart disease in addition to polymyalgia rheumatica/rheumatoid arthritis maintained on 4 mg of prednisone outpatient basis, chronic back pain, right rotator cuff injury, hypothyroidism, who presented yesterday to the emergency department after she was found to be in cardiac arrest Apparently, according to reported history, the patient's daughter was communicating with her over the phone when she acutely collapse. The daughter reports that she arrived to the scene within few minutes, 5 minutes max, and EMS came in to the scene and the patient was receiving CPR by the daughter during this time. The patient was placed on a monitor and she got defibrillated and subsequently there was return of spontaneous circulation. The exact downtime cannot be appropriately engaged however we think that she was on probably for around 10-15 minutes. She was intubated on the scene and the patient was moved to the emergency department first and then to the intensive care unit. CAT scan of the brain that was done in the burst department showed no acute abnormalities. CT of the chest showed no acute abnormality the patient had no evidence of pulmonary embolism. There was some haziness in the lung charles bilaterally consistent partly with some early CHF. Nevertheless no airspace disease or pulmonary infiltrates was noted. The patient also had a CAT scan of the abdomen and pelvis did came back within normal limits. Overnight the patient was kept intubated on mechanical ventilator. She was given Diprivan for sedation knowing that she was having some degree of agitation and asynchrony with a mechanical ventilator. At the time of my evaluation this morning, the patient was taken off Diprivan and she demonstrates spontaneous eye opening although her gaze was non-fixed and she was having rotational movements. Her pupils around 3-4 mm in size and they're reactive to light although sluggish. No hyperreflexia. No Babinski. At the later stage she started posturing. EEG was ordered. Carotid Doppler was ordered. Neurology consultation was ordered. No seizure activity has been noted. No further cardiac arrhythmias have been noted the patient's cardiac rhythm it's remained sinuses she arrived to the intensive care unit. She remained hemodynamically stable although there has been some fluctuation in her blood pressure. At times her systolic blood pressure without the low 90s and subsequently after holding her blood pressure medication she will shoot up to the 170s 190 systolic blood pressure. Urine output is adequate. No fever. No chills. No reported aspiration. Chest x-ray was clear. Urine output was adequate for the time being. I discussed the case with cardiology. I put the patient a combination of aspirin and IV heparin. I also put the patient on metoprolol 25 mg by mouth twice a day. Panel Flow Machine Operator later stage decided to proceed with amiodarone treatment knowing that this could've been a cardiac arrest/V. tach/V. fib. The patient is currently being loaded with amiodarone in addition. No plans for any cardiac health benefits specialist that there is concern of an underlying mental status and possibility of hypoxic encephalopathy. She was also started on stress dose hydrocortisone knowing that she has been chronically maintained on prednisone on outpatient basis. EKG was shot showing any acute abnormalities and there is no ST segment elevation or depression. The troponins were positive and this is probably related defibrillation and CPR. Review of Systems ROS unobtainable: due to endotracheal tube Past Medical History Past Medical History: Atrial Fibrillation, Atrial Flutter, CVA/TIA, Hyperlipidemia, Hypertension, Thyroid Disorder Additional Past Medical History / Comment(s): Polymyalgia rheumatica, hypothyroidism, hyperlipidemia, atrial fibrillation/flutter status post previous cardiac ablation History of Any Multi-Drug Resistant Organisms: None Reported Past Surgical History: Cardiac Ablation, Section, Cholecystectomy, Tonsillectomy Additional Past Surgical History / Comment(s): lower back surgery x2 Past Anesthesia/Blood Transfusion Reactions: No Reported Reaction Past Psychological History: Anxiety, Depression Smoking Status: Former smoker Past Alcohol Use History: None Reported Past Drug Use History: None Reported - Past Family History Mother Family Medical History: Cancer Additional Family Medical History / Comment(s): lung cancer, depression Father Family Medical History: AICD/Pacemaker, CVA/TIA Brother(s) Family Medical History: AFIB (Patient has 2 brothers one of them with atrial fibrillation and other one CAD post CABG.), Coronary Artery Disease (CAD) Sister(s) Family Medical History: No Reported History (Patient has one sister who major medical problems.) Daughter(s) Family Medical History: No Reported History (Patient has one daughter major medical problems.) Medications and Allergies Home Medications Medication Instructions Recorded Confirmed Type HYDROcodone/APAP 5-325MG [[place] 1 tab PO TID 04/25/15 04/21/16 History 5-325] Hydroxychloroquine Sulfate 200 mg PO BID 04/25/15 04/21/16 History [Plaquenil] Losartan Potassium [Cozaar] 25 mg PO DAILY 04/25/15 04/21/16 History Omeprazole [PriLOSEC] 40 mg PO BID 04/25/15 04/21/16 History Sertraline [Zoloft] 100 mg PO DAILY 04/25/15 04/21/16 History Simvastatin [Zocor] 20 mg PO HS 04/25/15 04/21/16 History Spironolactone [Aldactone] 12.5 mg PO Q48H 04/25/15 04/21/16 History Warfarin [Coumadin] 5 mg PO SUTH 04/25/15 04/21/16 History traMADol HCL [Ultram] 100 mg PO DAILY PRN 04/25/15 04/21/16 History Ascorbic Acid [Vitamin C] 500 mg PO DAILY 04/21/16 04/21/16 History Baicalin/Catechin [Limbrel 500 mg 500 mg PO BID 04/21/16 04/21/16 History Capsule] Bumetanide [Bumex] 0.5 mg PO Q48H 04/21/16 04/21/16 History Carisoprodol [Soma] 350 mg PO DIRECTED 04/21/16 04/21/16 History Cyanocobalamin (Vitamin B-12) 1,000 mcg PO DAILY 04/21/16 04/21/16 History [Vitamin B-12] Docusate Sodium [Dok] 100 - 300 mg PO HS 04/21/16 04/21/16 History Gabapentin [Neurontin] 600 mg PO BID 04/21/16 04/21/16 History [place]-3 Fatty Acids/Fish Oil [Fish 1 cap PO TID 04/21/16 04/21/16 History Oil 1,000 mg Softgel] Warfarin [Coumadin] 7.5 mg PO MOTUWEFRSA 04/21/16 04/21/16 History predniSONE 4 mg PO DAILY 04/21/16 04/21/16 History Levothyroxine Sodium [Synthroid] 175 mcg PO DAILY 04/22/16 04/22/16 History Allergies Allergy/AdvReac Type Severity Reaction Status Date / Time codeine Allergy Unknown Verified 04/21/16 20:43 meperidine HCl [From Demerol] Allergy Unknown Verified 04/21/16 20:43 Physical Exam Vitals: Vital Signs Temp Pulse Pulse Resp BP BP Pulse Ox 04/22/16 09:11 79 04/22/16 08:50 72 04/22/16 08:00 68 24 119/57 98 04/22/16 07:00 98.4 F 59 L 23 113/57 98 04/22/16 06:00 67 23 96/49 97 04/22/16 05:00 71 23 98 04/22/16 04:00 98.3 F 85 24 85/54 97 04/22/16 03:00 95 24 93/58 97 04/22/16 02:00 100 23 93/58 98 04/22/16 01:00 104 H 29 H 224/113 98 04/22/16 00:00 97.8 F 99 29 H 194/98 99 04/21/16 23:45 98.1 F 110 H 18 147/76 98 04/21/16 23:41 99 04/21/16 23:15 102 H 18 153/94 98 04/21/16 23:07 97.8 F 111 H 24 197/98 99 04/21/16 23:00 102 H 18 137/96 98 04/21/16 22:53 101 H 18 135/79 98 04/21/16 22:43 107 H 18 147/69 98 Intake and Output 04/21/16 04/22/16 04/22/16 22:59 06:59 14:59 Intake Total 2095.143 1265.155 Output Total 925 65 Balance 2575.899 4088.155 Intake: IV 700 200 Sodium Chloride 0.9% 1, 700 200 000 ml @ 100 mls/hr IV . Q10H [facility] Rx#:[id number] Intake, IV Titration 2823.871 4128.155 Amount Magnesium Sulfate-D5w Pmx 100 1 gm In Dextrose/Water 1 100ml.bag @ 100 mls/hr IVPB Q1H [facility] Rx#: [id number] Potassium Chloride 10 meq 200 Lidocaine 2% Inj 10 mg In Sodium Chloride 0.9% 100 ml @ 100 mls/hr IV Q1HR [facility] Rx#:[id number] Propofol 500 mg In Empty 20.1 Bag 1 bag @ Titrate IV . Q0M [facility] Rx#:[id number] Propofol 500 mg In Empty 96.143 46.055 Bag 1 bag @ Titrate IV . Q0M [facility] Rx#:[id number] Sodium Chloride 0.9% 1, 999 999 000 ml @ 100 mls/hr IV . Q10H [facility] Rx#:[id number] Output: Urine 925 65 Other: Voiding Method Indwelling Catheter Indwelling Catheter Weight 100.5 kg 100.5 kg Patient Weight 04/23/16 06:59 Weight 100.5 kg Head exam was generally normal. There was no scleral icterus or corneal arcus. Mucous membranes were moist. The patient is on a mechanical ventilator and she has an orogastric and orotracheal tube both in place.Neck was supple and without jugular venous distension, thyromegaly, or carotid bruits. Carotids were easily palpable bilaterally. There was no adenopathy.Lungs were clear to auscultation and percussion, and with normal diaphragmatic excursion. No wheezes or rales were noted. Cardiac exam revealed the PMI to be normally situated and sized. The rhythm was regular and no extrasystoles were noted during several minutes of auscultation. The first and second heart sounds were normal and physiologic splitting of the second heart sound was noted. There were no murmurs, rubs, clicks, or gallops.Abdominal exam revealed normal bowel sounds. The abdomen was soft, non-tender, and without masses, organomegaly, or appreciable enlargement of the abdominal aorta.Examination of the extremities revealed easily palpable radial, femoral and pedal pulses. There was no cyanosis , clubbing or edema. Neurologically the patient senses pain in all 4 extremities. She had times emesis. No seizure activity has been noted. No cranial nerve deficits. She has a good cough and a gag. Pupils are sluggishly reactive to light at 4 mm and they're symmetrical without any nystagmus. At a later stage she started having some questioning while being stimulated plan this is a decorticate posturing. Results - Laboratory Findings CBC and BMP: 04/22/16 10:55 04/22/16 08:25 ABG ABG pH 7.35 (7.35-7.45) 04/22/16 05:00 ABG pCO2 36 mmHg (35-45) 04/22/16 05:00 ABG pO2 134 mmHg (83-108) H 04/22/16 05:00 ABG O2 Saturation 98.9 % (94-97) H 04/22/16 05:00 PT/INR, D-dimer PT 12.5 sec (9.0-12.0) H 04/21/16 20:45 INR 1.3 (<1.1) 04/21/16 20:45 D-Dimer 4.24 mg/L FEU (<0.60) H 04/21/16 20:45 Abnormal lab findings: Abnormal Labs 04/21/16 04/21/16 04/22/16 23:20 23:38 00:10 WBC MCHC Neutrophils # (Manual) ABG pCO2 29 L ABG pO2 220 H ABG HCO3 17 L ABG Total CO2 18 L ABG O2 Saturation 99.0 H Sodium Potassium Chloride Carbon Dioxide Glucose POC Glucose (mg/dL) 196 H Plasma Lactic Acid Carlitos 2.7 H* Calcium AST ALT Total Creatine Kinase CK-MB (CK-2) Troponin I Total Protein Albumin 04/22/16 04/22/16 04/22/16 02:35 02:35 02:35 WBC 18.3 H MCHC 30.8 L Neutrophils # (Manual) 17.4 H ABG pCO2 ABG pO2 ABG HCO3 ABG Total CO2 ABG O2 Saturation Sodium Potassium 3.2 L Chloride 112 H Carbon Dioxide Glucose 183 H POC Glucose (mg/dL) Plasma Lactic Acid Carlitos Calcium AST 273 H ALT 268 H Total Creatine Kinase 287 H CK-MB (CK-2) 6.0 H* Troponin I 1.120 H* Total Protein 5.9 L Albumin 3.1 L 04/22/16 04/22/16 04/22/16 05:00 07:27 08:25 WBC MCHC Neutrophils # (Manual) ABG pCO2 ABG pO2 134 H ABG HCO3 20 L ABG Total CO2 ABG O2 Saturation 98.9 H Sodium Potassium Chloride Carbon Dioxide Glucose POC Glucose (mg/dL) 111 H Plasma Lactic Acid Carlitos Calcium AST ALT Total Creatine Kinase 549 H CK-MB (CK-2) 9.2 H* Troponin I 1.010 H* Total Protein Albumin 04/22/16 08:25 WBC MCHC Neutrophils # (Manual) ABG pCO2 ABG pO2 ABG HCO3 ABG Total CO2 ABG O2 Saturation Sodium 146 H Potassium Chloride 116 H Carbon Dioxide 20 L Glucose 130 H POC Glucose (mg/dL) Plasma Lactic Acid Carlitos Calcium 8.0 L AST ALT Total Creatine Kinase CK-MB (CK-2) Troponin I Total Protein Albumin - Diagnostic Findings Chest x-ray: image reviewed Assessment and Plan Plan: Assessment 1 acute cardiac arrest, most likely a cardiac arrhythmia related to either V. tach or V. fib. The patient was defibrillated on the scene with return of spontaneous circulation with an exact downtime estimated to be at least 10-15 minutes. Currently she is hemodynamic is stable. No further cardiac arrhythmias of been noted. EKG is within normal limits. Cardiac rhythm is sinus. Troponins are minimally elevated and this is probably secondary to CPR. 2 acute respiratory failure secondary to above and the patient is currently intubated on a mechanical ventilator 3 suspected hypoxic/anoxic encephalopathy despite the limited downtime. Further neurologic workup is still pending for now 4 chronic atrial fibrillation status post cardiac ablation and current rhythm is sinus. The patient was medicated with warfarin on outpatient basis and the PT/INR was subtherapeutic at a time of admission 5. Poly-myalgia rheumatica maintained on systemic steroids and the patient was taking 4 mg of prednisone on outpatient basis and currently she'll be placed on hydrocortisone stress dose 6 hypothyroidism 7 hyperlipidemia 8 previous history of CVA/TIA 9 chronic pain involving the back and the right shoulder as the patient has a component of rotator cuff. 10 preserved LV function with an echo Showing no acute abnormalities. In addition, the CAT scan of the chest abdomen and pelvis was nonrevealing Plan Keep the patient off sedation. Monitor neuro status. EEG. Repeat computed tomography scan of the next 24 hours. Carotid Dopplers. Neurology consultation. Continue aspirin and IV heparin. Continue beta blockers and the patient on Lopressor 25 L by mouth twice a day. Amiodarone loading. Echocardiogram was noted. Stress dose hydrocortisone. Monitor blood pressure and the necessity blood pressure medication adjustments. We'll continue to follow. I've a lengthy discussion with the patient's daughter and explained to her the situation. Outcome largely depend on the extent of the hypoxic encephalopathy that the patient could've had suffered.
[2016-04-22] MEDS: amLODIPine 10 MG TAB PO SCH (15:53)
[2016-04-22] MEDS ORDERED: LABETALOL 5 MG/ML VIAL MDV IVP PRN (15:59)
[2016-04-22 18:00] LABS: ALT 194 U/L (9-52); AST 122 U/L (14-36); Alkaline Phosphatase 82 U/L (38-126); Anion Gap 11 mmol/L; Blood Urea Nitrogen 13 mg/dL (7-17); Calcium 8.3 mg/dL (8.4-10.2); Carbon Dioxide 21 mmol/L (22-30); Chloride 112 mmol/L (98-107); Glucose 164 mg/dL (74-99); Magnesium 2.8 mg/dL (1.6-2.3); Non-African American GFR(MDRD) >60 (>60 ml/min/1.73 sqM); Potassium 3.3 mmol/L (3.5-5.1); Sodium 144 mmol/L (137-145); Total Bilirubin 0.8 mg/dL (0.2-1.3); Total Protein 5.9 g/dL (6.3-8.2)
[2016-04-22 18:40] LABS: Troponin I 0.437 ng/mL (0.000-0.034)
[2016-04-22] MEDS: NITROGLYCERIN OINT 1 INCH/GM PACKET TOPICAL SCH (19:30)
[2016-04-22 19:36] LABS: Glucose,Whole Blood 164 mg/dL (75-99)
[2016-04-22] MEDS: POTASSIUM CHLORIDE ORAL LIQUID 40 MEQ/30 ML CUP NG-TUBE SCH ×2 (20:58→22:06)
[2016-04-22] MEDS: ATORVASTATIN 10 MG TAB PO SCH (20:58)
[2016-04-22] MEDS: hydrALAZINE HCL 20 MG/ML 1 ML VIAL IVP PRN (22:09)
[2016-04-23] MEDS ORDERED: ATROPINE SULFATE 0.1 MG/ML 10ML SYRINGE ONE (00:03)
[2016-04-23] MEDS ORDERED: SODIUM BICARB 8.4% 50 ML SYR (1 MEQ/ML) ONE (00:03)
[2016-04-23] MEDS ORDERED: EPINEPHrine 10 ML SYRINGE (0.1 MG/ML) ONE (00:03)
--- NOTE | 2016-04-23 00:50 | CT ---
EXAM: CT Head Without Intravenous Contrast. CLINICAL HISTORY: Reason: AMS TECHNIQUE: Axial computed tomography images of the head/brain without intravenous contrast. Coronal and sagittal reformats were obtained. CTDI is 57.40 MGy and DLP is 978.20 MGy-cm COMPARISON: CT head 04/21/16 FINDINGS: Brain: No hemorrhage. No edema. Periventricular white matter hypodensities, likely chronic small vessel disease. Sulcal and ventricular prominence is consistent with age-related parenchymal volume loss. Ventricles: See above. Bones/joints: Unremarkable. No acute fracture. Sinuses: Unremarkable as visualized. No acute sinusitis. Mastoid air cells: Unremarkable as visualized. No mastoid effusion. IMPRESSION: 1. No acute intracranial abnormality. 2. Global atrophy and white matter changes most compatible with chronic small vessel disease.
[2016-04-23] MEDS: INSULIN LISPRO (humaLOG) 300 UNIT/3 ML VIAL SQ SCH ×4 (01:52→18:31)
[2016-04-23 01:53] LABS: Glucose,Whole Blood 115 mg/dL (75-99)
[2016-04-23] MEDS: HYDROCORTISONE SUCCINATE 100 MG/2 ML VIAL IV SCH ×3 (01:53→16:02)
[2016-04-23] MEDS: NITROGLYCERIN OINT 1 INCH/GM PACKET TOPICAL SCH ×4 (01:57→17:33)
[2016-04-23] MEDS: hydrALAZINE HCL 20 MG/ML 1 ML VIAL IVP PRN (03:25)
[2016-04-23 04:41] LABS: ABG Base Excess -6.8 mmol/L; ABG HCO3 18 mmol/L (21-25); ABG PCO2 37 mmHg (35-45); ABG PH 7.31 (7.35-7.45); ABG PO2 81 mmHg (83-108); ABG TCO2 19 mmol/L (19-24)
[2016-04-23] MEDS: HYDROmorphone 2 MG/ML 1 ML SYRINGE IVP PRN ×3 (04:43→23:18)
[2016-04-23] MEDS: SODIUM CHLORIDE 0.9% 1,000 ML IV SCH ×2 (04:44→10:51)
[2016-04-23] MEDS: PROPOFOL 500 MG in EMPTY BAG 1 BAG IV SCH ×2 (04:45→06:46)
[2016-04-23 04:50] LABS: Aty Lym Flag Slight; CH 29.8; CHCM 30.9; HCT 43.1 % (34.0-46.0); HDW 2.44; Hypochromasia Slight; MCH 29.3 pg (25.0-35.0); MCHC 30.3 g/dL (31.0-37.0); MCV 96.9 fL (80.0-100.0); Mean Platelet Volume 7.6; RBC 4.45 m/uL (3.80-5.40); RDW 13.9 % (11.5-15.5); WBC 15.2 k/uL (3.8-10.6); WBC (Perox) 15.66
[2016-04-23 05:05] LABS: Anion Gap 11 mmol/L; Blood Urea Nitrogen 14 mg/dL (7-17); Calcium 8.3 mg/dL (8.4-10.2); Carbon Dioxide 16 mmol/L (22-30); Chloride 116 mmol/L (98-107); Glucose 197 mg/dL (74-99); Magnesium 2.4 mg/dL (1.6-2.3); Non-African American GFR(MDRD) >60 (>60 ml/min/1.73 sqM); Phosphorous 3.1 mg/dL (2.5-4.5); Potassium 3.1 mmol/L (3.5-5.1); Sodium 143 mmol/L (137-145)
[2016-04-23 05:30] LABS: Add Differential Manual Differential
[2016-04-23 05:31] LABS: Manual Review Performed; Nucleated Red Blood Cells 0 /100 WBC (0-0); Total Cells Counted 100
[2016-04-23 06:24] LABS: Glucose,Whole Blood 148 mg/dL (75-99)
[2016-04-23] MEDS: POTASSIUM CHLORIDE 10 MEQ, LIDOCAINE 2% INJ 10 MG in SODIUM CHLORIDE 0.9% 100 ML IV SCH ×6 (06:46→18:29)
[2016-04-23] MEDS: LEVOTHYROXINE 100 MCG TAB PO SCH (06:52)
[2016-04-23] MEDS: LEVOTHYROXINE 75 MCG TAB PO SCH (06:52)
--- NOTE | 2016-04-23 07:16 | EEG ---
DATE OF SERVICE: 04/22/2016 REASON FOR TESTING: Altered mental status, status post cardiopulmonary arrest. AGE: 75Y DESCRIPTION OF THE PROCEDURE: This EEG was performed using a 21-channel digital electroencephalograph, following the international 10 - 20 system. DESCRIPTION OF THE RECORDING: From the beginning of the tracing, the background rhythm was difficult to determine due to muscle artifacts. Recurrent lead artifacts are also seen. Photic stimulation was performed with no driving response seen. No pathological waves were elicited. Hyperventilation was not performed. No obvious epileptiform discharges were seen. Her EKG lead showed an irregularly irregular rhythm. INTERPRETATION: This EEG is very limited due to the frequency of movement and muscle artifacts. No obvious epileptiform discharges were seen. Her EKG lead showed an irregularly irregular rhythm. Clinical correlation is recommended.
[2016-04-23] MEDS: IPRATROPIUM-ALBUTEROL 3 ML NEB INHALATION PRN ×2 (07:43→11:23)
[2016-04-23] MEDS: CHLORHEXIDINE GLUCONATE 15 ML CUP MUCOUS MEM SCH (07:59)
[2016-04-23] MEDS: amLODIPine 10 MG TAB PO SCH (08:36)
[2016-04-23] MEDS: METOPROLOL TARTRATE 25 MG TAB PO SCH ×2 (08:37→22:49)
[2016-04-23] MEDS: GABAPENTIN 300 MG CAP PO SCH (09:30)
[2016-04-23] MEDS: ASPIRIN 81 MG CHEW PO SCH (09:30)
[2016-04-23] MEDS: PANTOPRAZOLE 40 MG/10 ML VIAL IV SCH (09:30)
--- NOTE | 2016-04-23 09:46 | XR ---
EXAMINATION TYPE: XR chest 1V DATE OF EXAM: 04/23/2016 7:13 AM COMPARISON: 04/22/2016 HISTORY: Postintubation TECHNIQUE: Single frontal view of the chest is obtained. FINDINGS: ET and NG tube stable. Bilateral infiltrate and small effusion seen greater on the right. Heart is enlarged. No pneumothorax. IMPRESSION: 1. Correlate bilateral subsegmental atelectasis or infiltrate and small effusion greater on the right are slightly more progressed.
--- NOTE | 2016-04-23 10:14 | CONS ---
DATE OF CONSULTATION: 04/22/2016 CHIEF COMPLAINT: Unresponsiveness, status post cardiac arrest. HISTORY OF PRESENT ILLNESS: Mrs. Moss is a 75-year-old female who is being evaluated today on 04/22/2016 by the Neurology Service per the request of Dr. Richard for continued unresponsiveness, status post cardiopulmonary arrest. The patient was having a telephone conversation with her daughter from her house when she suddenly stopped conversing with her. The daughter drove home, which took her approximately 5 minutes, and she found the patient unresponsive in her bed. She started CPR and called for EMS. When EMS arrived, it appears that the patient was cardioverted, but it is unclear what was her rhythm at that time. The patient does have history of atrial flutter and atrial fibrillation and has had ablations in the past. The patient was intubated on site and transferred to the [facility] emergency room. She was hypertensive and had to be given some sedation. A stat CT scan of the brain was done, which showed no acute intracranial abnormalities. Small vessel ischemic changes were seen. Her carotid Doppler showed no hemodynamically significant stenosis. Her d-dimer was slightly elevated so a CT scan of the chest was done, which showed no evidence of any pulmonary embolism. Her cardiac enzymes showed elevated troponin I at 1.12. Her fasting lipid panel was normal. Her CBC showed leukocytosis at 16.6 and was otherwise normal. Her comprehensive metabolic profile showed hypokalemia at 3.2 and hepatic insufficiency with an AST of 423 and an ALT of 329. She did have an EEG and I did review the study, which was quite limited due to the frequency of movement and muscle artifacts. This morning, sedation was stopped at around 9 a.m. but the patient continues to be unresponsive. At the time of my evaluation this evening, she remains off of sedation and is not responding to any verbal stimuli. She continues to be on a ventilator. No seizure-like activity has been reported. PAST MEDICAL HISTORY: Atrial fibrillation, atrial flutter, coronary artery disease, fibromyalgia, gastroesophageal reflux disease, history of transient ischemic attacks, dyslipidemia, hypertension, history of myocardial infarction, rheumatoid arthritis, thyroid disorder, depression, anxiety disorder, history of , cholecystectomy, tonsillectomy, lumbar spine surgery, cardiac ablation. SOCIAL HISTORY: The patient is a former smoker. There is no history of any alcohol or drug use. FAMILY HISTORY: Positive for cancer and heart disease. HOME MEDICATIONS: Reviewed in the chart. ALLERGIES: DEMEROL. REVIEW OF SYSTEMS: Unable to obtain as the patient is unresponsive. PHYSICAL EXAM: Vital signs show a temperature of 99.1, pulse 65, respirations 30, blood pressure 193/80. GENERAL APPEARANCE: The patient is an obese female who is intubated and appears to be in no acute distress. ENT: Normocephalic, atraumatic. No obvious facial asymmetry is seen. Endotracheal tube is intact. Neck is supple with no masses felt. CARDIOVASCULAR: Regular rate and rhythm. ABDOMEN: Nontender, nondistended. Extremities showed trace edema with no clubbing seen. NEUROLOGICAL EXAM: The patient is unresponsive to verbal or painful stimuli. Brainstem reflexes are intact including corneal reflex, oculus thallic reflex, and pupillary reflex. Plantar reflex showed silent toes bilaterally. She is not moving her extremities. No seizure-like activity is seen. No obvious facial asymmetry is noticed. IMPRESSION: 1. Unresponsiveness/altered mental status. 2. Status post acute cardiopulmonary arrest. 3. Hypoxic encephalopathy. 4. Hepatic insufficiency. RECOMMENDATION: Given the patient's clinical presentation and given her recent history, there is significant concern for anoxic brain injury. She has been off of sedation for approximately 10 hours now and continues to be unresponsive. Her EEG was limited due to the frequency of movement and muscle artifact. I will repeat this EEG in the morning. I will also repeat a CT scan of the brain later tonight. Given her hepatic insufficiency, I will check a serum ammonia level to see if this is contributing to her symptoms. I had a lengthy discussion with the patient's daughter regarding the prognosis, which is quite guarded at this time. Depending on her laboratory work-up and repeated imaging and testing, her prognosis will be re-evaluated. Continue supportive care and neuro checks. I will continue to follow with you. Further recommendations to follow. Thank you, Dr. Richard for allowing me to participate in the care of your patient. If you have any questions, please feel free to contact me.
--- NOTE | 2016-04-23 10:24 | PN ---
This patient is status post cardiac arrest. The patient had an episode of torsade yesterday. The patient's potassium was 3.1. Amiodarone was discontinued. Since then, the patient has remained stable. Patient received about 4 grams of magnesium sulfate. Patient was quite agitated and now she is sedated with propofol. Patient's heart rate is 52 per minute. The blood pressure is 100/51 mmHg. First and second heart sounds are normal. Lungs reveal bilateral scattered wheezes. A chest x-ray suggestive of congestive cardiac failure. Patient's QT interval still remains prolonged. We will continue to correct the potassium, give to 1 to 2 grams of mag sulfate and give Lasix 40 mg IV. Patient's neurological status also ( ). It appears that the patient has a significant anoxic encephalopathy awaiting neurologic input.
--- NOTE | 2016-04-23 10:28 | P.PN ---
Subjective 75-year-old female patient with known history of chronic atrial fibrillation status post ablation procedure that was done at [facility], hypertension and hypertensive heart disease in addition to polymyalgia rheumatica/rheumatoid arthritis maintained on 4 mg of prednisone outpatient basis, chronic back pain, right rotator cuff injury, hypothyroidism, who presented yesterday to the emergency department after she was found to be in cardiac arrest Apparently, according to reported history, the patient's daughter was communicating with her over the phone when she acutely collapse. The daughter reports that she arrived to the scene within few minutes, 5 minutes max, and EMS came in to the scene and the patient was receiving CPR by the daughter during this time. The patient was placed on a monitor and she got defibrillated and subsequently there was return of spontaneous circulation. The exact downtime cannot be appropriately engaged however we think that she was on probably for around 10-15 minutes. She was intubated on the scene and the patient was moved to the emergency department first and then to the intensive care unit. CAT scan of the brain that was done in the burst department showed no acute abnormalities. CT of the chest showed no acute abnormality the patient had no evidence of pulmonary embolism. There was some haziness in the lung charles bilaterally consistent partly with some early CHF. Nevertheless no airspace disease or pulmonary infiltrates was noted. The patient also had a CAT scan of the abdomen and pelvis did came back within normal limits. Overnight the patient was kept intubated on mechanical ventilator. She was given Diprivan for sedation knowing that she was having some degree of agitation and asynchrony with a mechanical ventilator. At the time of my evaluation this morning, the patient was taken off Diprivan and she demonstrates spontaneous eye opening although her gaze was non-fixed and she was having rotational movements. Her pupils around 3-4 mm in size and they're reactive to light although sluggish. No hyperreflexia. No Babinski. At the later stage she started posturing. EEG was ordered. Carotid Doppler was ordered. Neurology consultation was ordered. No seizure activity has been noted. No further cardiac arrhythmias have been noted the patient's cardiac rhythm it's remained sinuses she arrived to the intensive care unit. She remained hemodynamically stable although there has been some fluctuation in her blood pressure. At times her systolic blood pressure without the low 90s and subsequently after holding her blood pressure medication she will shoot up to the 170s 190 systolic blood pressure. Urine output is adequate. No fever. No chills. No reported aspiration. Chest x-ray was clear. Urine output was adequate for the time being. I discussed the case with cardiology. I put the patient a combination of aspirin and IV heparin. I also put the patient on metoprolol 25 mg by mouth twice a day. Leveling Machine Operator later stage decided to proceed with amiodarone treatment knowing that this could've been a cardiac arrest/V. tach/V. fib. The patient is currently being loaded with amiodarone in addition. No plans for any cardiac medical office specialist that there is concern of an underlying mental status and possibility of hypoxic encephalopathy. She was also started on stress dose hydrocortisone knowing that she has been chronically maintained on prednisone on outpatient basis. EKG was shot showing any acute abnormalities and there is no ST segment elevation or depression. The troponins were positive and this is probably related defibrillation and CPR. On 04/23/2016 the patient is being seen in follow-up. Note that over the past 24 hours, the patient was taken off Diprivan and she was opening her eyes yet she was not following any commands. She would grimace to deep painful stimuli. There was obvious signs of hypoxic encephalopathy secondary to cardiac arrest. The EEG was limited due to muscle artifact. There was no obvious seizure activity noted. A repeat CAT scan was done around midnight and it showed no acute abnormalities. Overnight the patient became a bit more agitated and restless and she was thrashing around and developed some tachypnea tachycardia and hypertension. Based on that she had to be placed back on Diprivan drip which is currently running at 10 g per KG pigmented. Her condition has settled down since then. In terms of her cardiac status, the patient was noted to have prolongation of the QT interval. Cardiology recommended amiodarone which made her QT prolongation even worse and the patient had frequent ectopies and ultimately she had a short run of torsades, and polymorphic V. tach that was immediately defibrillated here in the ICU. The patient was given magnesium a total of 4 g and is magnesium level was brought up to 2.4. Then amiodarone drip was discontinued. I contacted the road driver and I further discussions with Dr. Ayoub recommended beta mahogany treatment only. Since yesterday, the patient has not had any significant cardiac arrhythmias. His cardiac rhythm is sinus. Daily remains prolonged. Hemodynamically, no hypotension, urine output has dropped earlier this morning. Noted the patient has been resuscitated aggressively with IV fluids. We will try diuresis to improve the patient's urine output. Objective - Vital Signs Vital signs: Vital Signs Temp 98.0 F 04/23/16 08:00 Pulse 55 L 04/23/16 10:00 Resp 28 H 04/23/16 10:00 BP 126/57 04/23/16 10:00 Pulse Ox 97 04/23/16 08:00 Intake & Output 04/22/16 04/23/16 04/23/16 18:59 06:59 18:59 Intake Total 2975.058 1649.188 470 Output Total 1278 390 50 Balance 1190.271 9294.188 420 Weight 100.5 kg 105.7 kg 105.7 kg Intake: IV 1200 1100 Sodium Chloride 0.9% 1, 1200 1100 000 ml @ 100 mls/hr IV . Q10H STA Rx#:[id number] Intake, IV Titration 1775.058 489.188 440 Amount Amiodarone 450 mg In 314.403 Dextrose 5% in Water 250 ml @ 1 MG/MIN 34.53 mls/ hr IV .Q7H31M MAGAN Rx#: [id number] Dextrose 5% in Water 100 100 ml @ 618 mls/hr IV .Q10M ONE with Amiodarone 150 mg Rx#:[id number] Heparin Sodium,Porcine/ 95.5 373.962 D5w Pmx 25,000 unit In Dextrose/Water 1 500ml. bag @ 9.95 UNITS/KG/HR 19 .99 mls/hr IV .Q24H MAGAN Rx#:[id number] Magnesium Sulfate-D5w Pmx 200 1 gm In Dextrose/Water 1 100ml.bag @ 100 mls/hr IVPB Q1H MAGAN Rx#: [id number] Potassium Chloride 10 meq 100 100 Lidocaine 2% Inj 10 mg In Sodium Chloride 0.9% 100 ml @ 100 mls/hr IV Q1HR [facility]AN Rx#:[id number] Propofol 500 mg In Empty 20.1 Bag 1 bag @ Titrate IV . Q0M ONE Rx#:[id number] Propofol 500 mg In Empty 46.055 15.226 Bag 1 bag @ Titrate IV . Q0M MAGAN Rx#:[id number] Sodium Chloride 0.9% 1, 999 340 000 ml @ 100 mls/hr IV . Q10H [facility] Rx#:[id number] Other 60 30 Output: Urine 598 390 50 Emesis 680 Other: Voiding Method Indwelling Catheter Indwelling Catheter Indwelling Catheter # Bowel Movements 0 - Exam Head exam was generally normal. There was no scleral icterus or corneal arcus. Mucous membranes were moist. The patient is on a mechanical ventilator and she has an orogastric and orotracheal tube both in place.Neck was supple and without jugular venous distension, thyromegaly, or carotid bruits. Carotids were easily palpable bilaterally. There was no adenopathy.Lungs were clear to auscultation and percussion, and with normal diaphragmatic excursion. No wheezes or rales were noted. Cardiac exam revealed the PMI to be normally situated and sized. The rhythm was regular and no extrasystoles were noted during several minutes of auscultation. The first and second heart sounds were normal and physiologic splitting of the second heart sound was noted. There were no murmurs, rubs, clicks, or gallops.Abdominal exam revealed normal bowel sounds. The abdomen was soft, non-tender, and without masses, organomegaly, or appreciable enlargement of the abdominal aorta.Examination of the extremities revealed easily palpable radial, femoral and pedal pulses. There was no cyanosis , clubbing or edema. Neurologically the patient senses pain in all 4 extremities. She had times emesis. No seizure activity has been noted. No cranial nerve deficits. She has a good cough and a gag. Pupils are sluggishly reactive to light at 4 mm and they're symmetrical without any nystagmus. - Labs CBC & Chem 7: 04/23/16 04:17 04/23/16 04:17 Labs: Abnormal Lab Results - Last 24 Hours (Table) 04/22/16 04/22/16 04/22/16 Range/Units 10:55 13:00 16:23 WBC 16.6 H (3.8-10.6) k/uL MCHC (31.0-37.0) g/dL Neutrophils # (Manual) 15.3 H (1.3-7.7) k/uL Lymphocytes # (Manual) 0.3 L (1.0-4.8) k/uL APTT 33.3 H (22.0-30.0) sec ABG pH (7.35-7.45) ABG pO2 (83-108) mmHg ABG HCO3 (21-25) mmol/L Potassium (3.5-5.1) mmol/L Chloride (98-107) mmol/L Carbon Dioxide (22-30) mmol/L Glucose (74-99) mg/dL POC Glucose (mg/dL) 167 H (75-99) mg/dL Calcium (8.4-10.2) mg/dL Magnesium (1.6-2.3) mg/dL AST (14-36) U/L ALT (9-52) U/L Total Creatine Kinase (30-135) U/L CK-MB (CK-2) (0.0-2.4) ng/mL Troponin I (0.000-0.034) ng/mL Total Protein (6.3-8.2) g/dL Albumin (3.5-5.0) g/dL 04/22/16 04/22/16 04/22/16 Range/Units 17:27 17:27 19:33 WBC (3.8-10.6) k/uL MCHC (31.0-37.0) g/dL Neutrophils # (Manual) (1.3-7.7) k/uL Lymphocytes # (Manual) (1.0-4.8) k/uL APTT (22.0-30.0) sec ABG pH (7.35-7.45) ABG pO2 (83-108) mmHg ABG HCO3 (21-25) mmol/L Potassium 3.3 L (3.5-5.1) mmol/L Chloride 112 H (98-107) mmol/L Carbon Dioxide 21 L (22-30) mmol/L Glucose 164 H (74-99) mg/dL POC Glucose (mg/dL) 164 H (75-99) mg/dL Calcium 8.3 L (8.4-10.2) mg/dL Magnesium 2.8 H (1.6-2.3) mg/dL AST 122 H (14-36) U/L ALT 194 H (9-52) U/L Total Creatine Kinase 573 H (30-135) U/L CK-MB (CK-2) 7.0 H* (0.0-2.4) ng/mL Troponin I 0.437 H* (0.000-0.034) ng/mL Total Protein 5.9 L (6.3-8.2) g/dL Albumin 3.0 L (3.5-5.0) g/dL 04/23/16 04/23/16 04/23/16 Range/Units 01:21 01:51 04:17 WBC 15.2 H (3.8-10.6) k/uL MCHC 30.3 L (31.0-37.0) g/dL Neutrophils # (Manual) 13.8 H (1.3-7.7) k/uL Lymphocytes # (Manual) 0.9 L (1.0-4.8) k/uL APTT 49.6 H (22.0-30.0) sec ABG pH (7.35-7.45) ABG pO2 (83-108) mmHg ABG HCO3 (21-25) mmol/L Potassium (3.5-5.1) mmol/L Chloride (98-107) mmol/L Carbon Dioxide (22-30) mmol/L Glucose (74-99) mg/dL POC Glucose (mg/dL) 115 H (75-99) mg/dL Calcium (8.4-10.2) mg/dL Magnesium (1.6-2.3) mg/dL AST (14-36) U/L ALT (9-52) U/L Total Creatine Kinase (30-135) U/L CK-MB (CK-2) (0.0-2.4) ng/mL Troponin I (0.000-0.034) ng/mL Total Protein (6.3-8.2) g/dL Albumin (3.5-5.0) g/dL 04/23/16 04/23/16 04/23/16 Range/Units 04:17 04:30 06:22 WBC (3.8-10.6) k/uL MCHC (31.0-37.0) g/dL Neutrophils # (Manual) (1.3-7.7) k/uL Lymphocytes # (Manual) (1.0-4.8) k/uL APTT (22.0-30.0) sec ABG pH 7.31 L (7.35-7.45) ABG pO2 81 L (83-108) mmHg ABG HCO3 18 L (21-25) mmol/L Potassium 3.1 L (3.5-5.1) mmol/L Chloride 116 H (98-107) mmol/L Carbon Dioxide 16 L (22-30) mmol/L Glucose 197 H (74-99) mg/dL POC Glucose (mg/dL) 148 H (75-99) mg/dL Calcium 8.3 L (8.4-10.2) mg/dL Magnesium 2.4 H (1.6-2.3) mg/dL AST (14-36) U/L ALT (9-52) U/L Total Creatine Kinase (30-135) U/L CK-MB (CK-2) (0.0-2.4) ng/mL Troponin I (0.000-0.034) ng/mL Total Protein (6.3-8.2) g/dL Albumin (3.5-5.0) g/dL Microbiology - Last 24 Hours (Table) 04/22/16 00:30 Gram Stain - Preliminary Sputum Sputum Culture - Preliminary Assessment and Plan Plan: Assessment 1 acute cardiac arrest, most likely a cardiac arrhythmia related to either V. tach or V. fib. The patient was defibrillated on the scene with return of spontaneous circulation with an exact downtime estimated to be at least 10-15 minutes. Currently she is hemodynamic is stable. No further cardiac arrhythmias of been noted. EKG is within normal limits. Cardiac rhythm is sinus. Troponins are minimally elevated and this is probably secondary to CPR. On 04/23/2016 the patient is being seen in follow-up. The patient had prolongation of QT and developed a short run of a torsades while being on amiodarone. There is a was discontinued and the patient was kept only on beta mahogany. Because of cardiac arrest is suspected to be ventricular arrhythmia. 2 acute respiratory failure secondary to above and the patient is currently intubated on a mechanical ventilator 3 suspected hypoxic/anoxic encephalopathy despite the limited downtime. On 04/23/2016 the patient remains encephalopathic. Overnight the patient became restless and agitated and based on that she had to be placed back on Diprivan. Another sedation holiday will be given to this patient today. Meanwhile EEG was noted and there is no evidence of any seizure activity and the repeat CAT scan of the brain showed no evidence of any CVA or bleed. 4 chronic atrial fibrillation status post cardiac ablation and current rhythm is sinus. The patient was medicated with warfarin on outpatient basis and the PT/INR was subtherapeutic at a time of admission 5. Poly-myalgia rheumatica maintained on systemic steroids and the patient was taking 4 mg of prednisone on outpatient basis and currently she'll be placed on hydrocortisone stress dose 6 hypothyroidism 7 hyperlipidemia 8 previous history of CVA/TIA 9 chronic pain involving the back and the right shoulder as the patient has a component of rotator cuff. 10 preserved LV function with an echo Showing no acute abnormalities. In addition, the CAT scan of the chest abdomen and pelvis was nonrevealing Plan Continue vent support. Monitor the cardiac rhythm. Avoid any medication that can cause for the prolongation of the QT interval. The patient was taken off Plaquenil and she is on no antibiotics that can cause progression of the QT. Amiodarone obviously should not be used. We'll continue beta blockers. The patient's cardiac rhythm is sinus with a first-degree AV block and prolongation of the QT interval. There is however signs of hypoxic/encephalopathy and the patient is being followed up by neurology. We'll take the sedation off and we' ll assess the patient's mental status today. This will be done daily basis. A repeat CAT scan of the brain was done and showed no evidence of any acute changes. Meanwhile, the patient will be given Lasix 40 mg IV every 12 hours and monitor the electrolytes was close attention towards the potassium and the magnesium level. The patient will be started on tube feeds. We'll cut down the IV fluids to normal saline today to 40 mL an hour. ET tube recently prescribed by around 1 cm based on today's chest x-ray which also shows a component of fluid overload. Case was discussed with cardiology. The family was updated on the condition. This is a critically care evaluation that was done in 45 minutes. Time with Patient: Greater than 30
[2016-04-23] MEDS: MAGNESIUM SULFATE-D5W PMX 1 GM in DEXTROSE/WATER 1 100ML.BAG IVPB SCH ×2 (10:52→12:15)
[2016-04-23] MEDS: FUROSEMIDE 10 MG/ML 4 ML VIAL IV SCH (10:53)
[2016-04-23] MEDS: HEPARIN SODIUM,PORCINE/D5W PMX 25,000 UNIT in DEXTROSE/WATER 1 500ML.BAG IV SCH (10:54)
[2016-04-23 12:24] LABS: Glucose,Whole Blood 177 mg/dL (75-99)
--- NOTE | 2016-04-23 14:21 | P.PN ---
Subjective This is a 75-year-old female one of my patient with a previous medical history significant for hypertension and hypertensive cardio vascular disease with left ventricular hypertrophy, hyperlipidemia, history of atrial flutter/fibrillation status post 3 ablation therapy under the care of cardiology , rheumatoid arthritis, polymyalgia rheumatica, fibromyalgia, hypothyroidism, patient developed to have a significant upper respiratory tract infection that was treated about 10 days ago and the patient was feeling fine up until Wednesday when she started to feel bad again, yesterday she was talking to her daughter on the phone and the patient was having episodes of nausea vomiting and diarrhea for the past 48 hours, felt generally weak,and while she was talking with her daughter on the phone trying to get back to see her patient became unresponsive and the patient daughter got there and patient was laying in bed unresponsive according to her there was a pulse of that time period and after that she lost her pulse and she started CPR by herself and she called 911 at the same time and EMS where there within 5 minutes and according to the daughter due to the total downtime was not more than 10 minutes probably 15 minutes patient was intubated in the scene she was shocked once and she was transported to [facility] where she was placed on the ventilator she was given IV fluid resuscitation she was admitted to the hospital she had a computed tomography scan of the chest abdomen and pelvis without any acute abnormalities there was no evidence of pulmonary embolism, she had a computed tomography scan of the brain that did not show any evidence of acute abnormalities, patient was admitted to the hospital she was placed on the ventilator and she was seen in consultation by pulmonary medicine as well as by cardiology, her cardiac enzymes came back positive her troponin was slightly elevated suggestive of non-ST elevation [place]. 04/23: Patient remains intubated and on mechanical ventilation. EEG was done that was limited with muscle artifact no obvious seizure activity. Repeat CAT scan of the brain showed no acute abnormalities. Patient was agitated and restless during the night and about tachypnea and tachycardia and hypertension. She was placed back on Diprivan. She was then noted to have prolonged QT interval and cardiology recommended amiodarone which seemed to worsen the QT prolongation and she had a short run of torsades and V. tach requiring defibrillation. She received magnesium with repeat dosing given this morning. Amiodarone was discontinued 2 feedings have been initiated. Urine output has been less than 10 mL and Lasix given. Objective - Vital Signs Vital signs: Vital Signs Temp 98.0 F 04/23/16 08:00 Pulse 52 L 04/23/16 08:06 Resp 25 H 04/23/16 08:00 BP 97/51 04/23/16 08:00 Pulse Ox 97 04/23/16 08:00 Intake & Output 04/22/16 04/23/16 04/23/16 18:59 06:59 18:59 Intake Total 2975.058 1649.188 350 Output Total 1278 390 30 Balance 9993.629 4556.188 320 Weight 100.5 kg 105.7 kg Intake: IV 1200 1100 Sodium Chloride 0.9% 1, 1200 1100 000 ml @ 100 mls/hr IV . Q10H [facility] Rx#:[id number] Intake, IV Titration 1775.058 489.188 320 Amount Amiodarone 450 mg In 314.403 Dextrose 5% in Water 250 ml @ 1 MG/MIN 34.53 mls/ hr IV .Q7H31M [facility] Rx#: [id number] Dextrose 5% in Water 100 100 ml @ 618 mls/hr IV .Q10M [facility] with Amiodarone 150 mg Rx#:[id number] Heparin Sodium,Porcine/ 95.5 373.962 D5w Pmx 25,000 unit In Dextrose/Water 1 500ml. bag @ 9.95 UNITS/KG/HR 19 .99 mls/hr IV .Q24H [facility] Rx#:[id number] Magnesium Sulfate-D5w Pmx 200 1 gm In Dextrose/Water 1 100ml.bag @ 100 mls/hr IVPB Q1H [facility] Rx#: [id number] Potassium Chloride 10 meq 100 100 Lidocaine 2% Inj 10 mg In Sodium Chloride 0.9% 100 ml @ 100 mls/hr IV Q1HR [facility] Rx#:[id number] Propofol 500 mg In Empty 20.1 Bag 1 bag @ Titrate IV . Q0M [facility] Rx#:[id number] Propofol 500 mg In Empty 46.055 15.226 Bag 1 bag @ Titrate IV . Q0M [facility] Rx#:[id number] Sodium Chloride 0.9% 1, 999 220 000 ml @ 100 mls/hr IV . Q10H [facility] Rx#:[id number] Other 60 30 Output: Urine 598 390 30 Emesis 680 Other: Voiding Method Indwelling Catheter Indwelling Catheter # Bowel Movements 0 - Exam General appearance: obese, severe distress - EENT Eyes: no EOMI, no PERRLA, no scleral icterus, no normal appearance ENT: other (ET tube in andOGT in place.) Ears: bilateral: normal - Neck Neck: no lymphadenopathy, no rigidity, no stridor, no thyromegaly Carotids: bilateral: upstroke normal Thyroid: bilateral: normal size - Respiratory Respiratory: bilateral: diminished, negative: dullness, rales, rhonchi, wheezing , prolonged expiration, prolonged inspiration - Cardiovascular Rhythm: regular Heart sounds: normal: S1, S2 Abnormal Heart Sounds: systolic murmur, no rub - Gastrointestinal General gastrointestinal: decreased bowel sounds, soft, no splenomegaly, no tenderness, no umbilical hernia, no ventral hernia - Integumentary Integumentary: normal, normal turgor - Neurologic Neurologic: focal deficits - Psychiatric Psychiatric: no A&O x's 3, no appropriate affect, no intact judgment & insight - Labs CBC & Chem 7: 04/23/16 04:17 04/23/16 09:49 Labs: Abnormal Lab Results - Last 24 Hours (Table) 04/22/16 04/22/16 04/22/16 Range/Units 10:55 13:00 16:23 WBC 16.6 H (3.8-10.6) k/uL MCHC (31.0-37.0) g/dL Neutrophils # (Manual) 15.3 H (1.3-7.7) k/uL Lymphocytes # (Manual) 0.3 L (1.0-4.8) k/uL APTT 33.3 H (22.0-30.0) sec ABG pH (7.35-7.45) ABG pO2 (83-108) mmHg ABG HCO3 (21-25) mmol/L Potassium (3.5-5.1) mmol/L Chloride (98-107) mmol/L Carbon Dioxide (22-30) mmol/L Glucose (74-99) mg/dL POC Glucose (mg/dL) 167 H (75-99) mg/dL Calcium (8.4-10.2) mg/dL Magnesium (1.6-2.3) mg/dL AST (14-36) U/L ALT (9-52) U/L Total Creatine Kinase (30-135) U/L CK-MB (CK-2) (0.0-2.4) ng/mL Troponin I (0.000-0.034) ng/mL Total Protein (6.3-8.2) g/dL Albumin (3.5-5.0) g/dL 04/22/16 04/22/16 04/22/16 Range/Units 17:27 17:27 19:33 WBC (3.8-10.6) k/uL MCHC (31.0-37.0) g/dL Neutrophils # (Manual) (1.3-7.7) k/uL Lymphocytes # (Manual) (1.0-4.8) k/uL APTT (22.0-30.0) sec ABG pH (7.35-7.45) ABG pO2 (83-108) mmHg ABG HCO3 (21-25) mmol/L Potassium 3.3 L (3.5-5.1) mmol/L Chloride 112 H (98-107) mmol/L Carbon Dioxide 21 L (22-30) mmol/L Glucose 164 H (74-99) mg/dL POC Glucose (mg/dL) 164 H (75-99) mg/dL Calcium 8.3 L (8.4-10.2) mg/dL Magnesium 2.8 H (1.6-2.3) mg/dL AST 122 H (14-36) U/L ALT 194 H (9-52) U/L Total Creatine Kinase 573 H (30-135) U/L CK-MB (CK-2) 7.0 H* (0.0-2.4) ng/mL Troponin I 0.437 H* (0.000-0.034) ng/mL Total Protein 5.9 L (6.3-8.2) g/dL Albumin 3.0 L (3.5-5.0) g/dL 04/23/16 04/23/16 04/23/16 Range/Units 01:21 01:51 04:17 WBC 15.2 H (3.8-10.6) k/uL MCHC 30.3 L (31.0-37.0) g/dL Neutrophils # (Manual) 13.8 H (1.3-7.7) k/uL Lymphocytes # (Manual) 0.9 L (1.0-4.8) k/uL APTT 49.6 H (22.0-30.0) sec ABG pH (7.35-7.45) ABG pO2 (83-108) mmHg ABG HCO3 (21-25) mmol/L Potassium (3.5-5.1) mmol/L Chloride (98-107) mmol/L Carbon Dioxide (22-30) mmol/L Glucose (74-99) mg/dL POC Glucose (mg/dL) 115 H (75-99) mg/dL Calcium (8.4-10.2) mg/dL Magnesium (1.6-2.3) mg/dL AST (14-36) U/L ALT (9-52) U/L Total Creatine Kinase (30-135) U/L CK-MB (CK-2) (0.0-2.4) ng/mL Troponin I (0.000-0.034) ng/mL Total Protein (6.3-8.2) g/dL Albumin (3.5-5.0) g/dL 04/23/16 04/23/16 04/23/16 Range/Units 04:17 04:30 06:22 WBC (3.8-10.6) k/uL MCHC (31.0-37.0) g/dL Neutrophils # (Manual) (1.3-7.7) k/uL Lymphocytes # (Manual) (1.0-4.8) k/uL APTT (22.0-30.0) sec ABG pH 7.31 L (7.35-7.45) ABG pO2 81 L (83-108) mmHg ABG HCO3 18 L (21-25) mmol/L Potassium 3.1 L (3.5-5.1) mmol/L Chloride 116 H (98-107) mmol/L Carbon Dioxide 16 L (22-30) mmol/L Glucose 197 H (74-99) mg/dL POC Glucose (mg/dL) 148 H (75-99) mg/dL Calcium 8.3 L (8.4-10.2) mg/dL Magnesium 2.4 H (1.6-2.3) mg/dL AST (14-36) U/L ALT (9-52) U/L Total Creatine Kinase (30-135) U/L CK-MB (CK-2) (0.0-2.4) ng/mL Troponin I (0.000-0.034) ng/mL Total Protein (6.3-8.2) g/dL Albumin (3.5-5.0) g/dL Microbiology - Last 24 Hours (Table) 04/22/16 00:30 Gram Stain - Preliminary Sputum Sputum Culture - Preliminary Assessment and Plan Plan: 1. Acute hypoxic ventilator-dependent respiratory failure due to acute cardiopulmonary arrest followed by DC cardioversion 1 on the scene currently on the ventilator. Continue current vent management as per pulmonary as well as cardiology, we will obtain the brain scan at this time as the patient was taken off the sedation and she still have no appropriate response, we will continue to monitor the patient in intensive care unit at this point in time continue supportive care, continue IV fluid, continue DVT prophylaxis, continue GI prophylaxis, talked to her daughter and her brother at bed side and prognosis continues to be very guarded. 2. History of chronic atrial fibrillation/flutter post-ablation 3. Currently the patient on heparin drip. 3. Hypertension and hypertensive cardiovascular disease. Continue labetalol 10 mg IV push every 4 hours as needed, continue metoprolol 25 mg per OGT twice every day, continue Catapres patch 0.1 mg once every week. 4. Cardiac arrhythmia with non-ST elevation [place]. Continue aspirin 325 mg orally once every day, continue heparin drip, continue amiodarone drip, cardiology consultation, echocardiogram was reviewed showed normal LV function with mild mitral and tricuspid regurgitation. 5. Hypothyroidism. Continue levothyroxine 175 g per OGT once every day. 6. Hyperlipidemia. Continue Lipitor. 7. Polymyalgia rheumatica. Currently on hydrocortisone 100 mg IV push every 8 hours. 8. Fibromyalgia. Continue gabapentin 600 mg orally twice every day. 9. History of CVA/TIA. Continue anticoagulation for life. 10. DVT prophylaxis. Continue heparin drip for now. 11. GI prophylaxis. Continue Protonix 40 mg IV push every 24 hours. 12. Oliguria with output of 10 mL per hour. Lasix given. 13. 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 Patient is a full code. Prognosis: guarded Impression and plan of care have been directed as dictated by the signing physician. Johanna Sanford nurse practitioner acting as scribe for signing physician. Time with Patient: Greater than 30
[2016-04-23] MEDS: SPIRONOLACTONE 25 MG TAB PO SCH (16:02)
[2016-04-23 18:33] LABS: Glucose,Whole Blood 133 mg/dL (75-99)
--- NOTE | 2016-04-23 18:45 | CONS ---
DATE OF CONSULTATION: Mrs. Moss is a 75-year-old female who was talking to her daughter on the phone when she collapsed. Her daughter heard grunting sounds. The history is available from the daughter. She went to her mother's home which is about 5 minutes away and found her completely collapsed and in cardiac arrest. She did feel a few pulse beats but the mother was unresponsive and so she started CPR, called 911. When 911 arrived, they had to defibrillate her. An ACLS protocol was followed. She came to the hospital. She is intubated. ( ) not completely oriented at this point. Diprivan drip has been discontinued for now. She does not give me any history at this time. The entire history is available from the daughter. She has past history of A. fib status post multiple three ablations, the last ablation was for slow atrial tachycardia, she has hypertrophic cardiomyopathy and a 2-D echo suggests that she has apical and hypertrophic cardiomyopathy. The 12 lead ECG shows sinus rhythm. Some ECG during sinus bradycardia show very prolonged QT interval. Usually she is not on QT prolonging medications but recently she had a viral GI affliction with excessive watery diarrhea for about 2 days. She continued to take her Bumex probably and was also prescribed Zithromax. Past medical history also includes atrial fibrillation, atrial tachycardia, coronary artery disease and rheumatoid arthritis and thyroid disorder. FAMILY HISTORY: There is no family history of sudden cardiac . Family has been checked in detail for apical hypertrophy. SOCIAL HISTORY: She is a former smoker. She quit about 3 years back. PAST SURGERIES: section, cholecystectomy and tonsillectomy. Medication list was reviewed. At home includes: 1. Synthroid. 2. Prednisone. 3. Warfarin. 4. [place]-3 fatty acids. 5. Gabapentin. 6. ( ) sodium. 7. Vitamin B12. 8. Soma. 9. Bumex. 10. Limbrel ascorbic acid. 11. Ultram. 12. Warfarin. 13. Spironolactone. 14. Zocor. 15. Zoloft. 16. Prilosec. 17. Cozaar. 18. Plaquenil. 19. Hydrocodone. ALLERGIES TO CODEINE AND MEPERIDINE. On examination, her blood pressure is 135/79 mmHg. Heart rate is in the 50s and 60s. Head and neck examination is normal. She is intubated at this time but is awake. The Diprivan drip is being tapered off. Breath sounds are normal. No rhonchi. No crackles. Heart sounds S1, S2 are normal, with a soft, systolic murmur. ABDOMEN: Soft, nontender. EXTREMITIES: Warm. No edema. Twelve-lead ECG shows some 12-lead ECG showed prolonged, QT interval, nonsustained ventricular tachycardia is noted on telemetry IMPRESSION: 1. Hypertrophic cardiomyopathy and with possibly apical ( ) hypertrophic cardiomyopathy. 2. Likely prolongation of QT interval in the setting of Plaquenil, electrolyte imbalance secondary to profuse diarrhea and with the addition of Zithromax, this could have precipitated her ventricular fibrillation ( ) could have precipitated torsade. Here she is experiencing PVCs and nonsustained short runs of nonsustained ( ) ventricular tachycardia. SUGGEST: Avoidance of altered prolonged drugs and keep potassium greater than 4, keep magnesium greater than 2. She received multiple doses of IV magnesium. I will not treat her with amiodarone. I will not treat her with any antiarrhythmic drug at this point. Once she is completely awake and oriented then an ICD will be implanted possibly with a dual-chamber ICD for atrial pacing along with beta blockers to avoid bradycardia and minimize a QT disposition. This was discussed with the family especially with daughter.
[2016-04-23 23:24] LABS: Anion Gap 10 mmol/L; Carbon Dioxide 20 mmol/L (22-30); Chloride 114 mmol/L (98-107); Glucose 142 mg/dL (74-99); Potassium 3.6 mmol/L (3.5-5.1); Sodium 144 mmol/L (137-145); Total Protein 5.7 g/dL (6.3-8.2)
[2016-04-23 23:25] LABS: ALT 137 U/L (9-52); AST 77 U/L (14-36); Alkaline Phosphatase 70 U/L (38-126); Blood Urea Nitrogen 16 mg/dL (7-17); Calcium 8.7 mg/dL (8.4-10.2); Magnesium 2.6 mg/dL (1.6-2.3); Non-African American GFR(MDRD) 60 (>60 ml/min/1.73 sqM); Total Bilirubin 0.7 mg/dL (0.2-1.3)
[2016-04-24] MEDS: ATORVASTATIN 10 MG TAB PO SCH ×2 (00:33→20:36)
[2016-04-24] MEDS: GABAPENTIN 300 MG CAP PO SCH ×3 (00:33→21:15)
[2016-04-24] MEDS: CHLORHEXIDINE GLUCONATE 15 ML CUP MUCOUS MEM SCH ×3 (00:33→20:20)
[2016-04-24] MEDS: FUROSEMIDE 10 MG/ML 4 ML VIAL IV SCH ×2 (00:34→08:19)
[2016-04-24] MEDS: HYDROCORTISONE SUCCINATE 100 MG/2 ML VIAL IV SCH ×3 (00:34→16:26)
[2016-04-24] MEDS: POTASSIUM CHLORIDE 10 MEQ in WATER FOR INJECTION 1 100ML.BAG IVPB SCH ×2 (00:43→02:42)
[2016-04-24] MEDS: NITROGLYCERIN OINT 1 INCH/GM PACKET TOPICAL SCH ×4 (02:08→18:16)
[2016-04-24] MEDS: INSULIN LISPRO (humaLOG) 300 UNIT/3 ML VIAL SQ SCH ×4 (02:41→18:08)
[2016-04-24 02:42] LABS: Glucose,Whole Blood 134 mg/dL (75-99)
[2016-04-24] MEDS: SODIUM CHLORIDE 0.9% 1,000 ML IV SCH ×2 (02:42→23:35)
[2016-04-24] MEDS: HEPARIN SODIUM,PORCINE/D5W PMX 25,000 UNIT in DEXTROSE/WATER 1 500ML.BAG IV SCH (02:45)
[2016-04-24 04:12] LABS: ABG Base Excess -3.7 mmol/L; ABG HCO3 20 mmol/L (21-25); ABG PCO2 33 mmHg (35-45); ABG PO2 149 mmHg (83-108); ABG TCO2 21 mmol/L (19-24)
[2016-04-24] MEDS: HYDROmorphone 2 MG/ML 1 ML SYRINGE IVP PRN (04:26)
[2016-04-24 05:49] LABS: Glucose,Whole Blood 140 mg/dL (75-99)
[2016-04-24] MEDS: LEVOTHYROXINE 100 MCG TAB PO SCH (05:50)
[2016-04-24] MEDS: LEVOTHYROXINE 75 MCG TAB PO SCH (05:50)
[2016-04-24 05:55] LABS: Aty Lym Flag Slight; CH 29.9; CHCM 31.7; HCT 38.2 % (34.0-46.0); HDW 2.52; HGB 12.3 gm/dL (11.4-16.0); MCH 30.4 pg (25.0-35.0); MCHC 32.1 g/dL (31.0-37.0); MCV 94.7 fL (80.0-100.0); Mean Platelet Volume 8.9; RBC 4.03 m/uL (3.80-5.40); RDW 14.3 % (11.5-15.5); WBC 15.7 k/uL (3.8-10.6); WBC (Perox) 16.35
[2016-04-24 06:02] LABS: Anion Gap 8 mmol/L; Blood Urea Nitrogen 19 mg/dL (7-17); Calcium 8.7 mg/dL (8.4-10.2); Carbon Dioxide 19 mmol/L (22-30); Chloride 115 mmol/L (98-107); Glucose 147 mg/dL (74-99); Magnesium 2.3 mg/dL (1.6-2.3); Non-African American GFR(MDRD) >60 (>60 ml/min/1.73 sqM); Phosphorous 3.5 mg/dL (2.5-4.5); Sodium 142 mmol/L (137-145)
[2016-04-24] MEDS ORDERED: ACETAMINOPHEN IV (For NPO) 1,000 MG in EMPTY BAG 1 BAG IVPB PRN (06:35)
--- NOTE | 2016-04-24 06:56 | P.PN ---
Subjective Principal diagnosis: Unresponsiveness status post cardiac arrest: possible anoxic brain injury Patient is a 75-year-old female being followed by Neurology for status post cardiac arrest unresponsiveness. Patient has an approximate known downtime of 5 minutes before CPR was initiated and an unknown duration between CPR initiation EMS arrival and advanced cardiac life support measures started. patient has a history of atrial fibrillation and flutter and has had ablations in the past. She was intubated on scene and then was found to be hypertensive in the ED arrival and sedated. CT scan of the brain was done showing no injured cranial abnormalities that were acute. Small vessel ischemic changes were noted. CT of the chest was negative for pulmonary embolism despite her elevated d-dimer. Elevated d-dimer may be related to CPR initiation in the field. Cardiac enzymes showed elevated troponin I at arrival. CBC showed leukocytosis but was otherwise normal. CMP showed hypokalemia and hepatic insufficiency. EEG was conducted but was quite limited due to the frequency of movement and muscle artifact. On April 22 at 9 AM sedation was stopped and the patient remained unresponsive. Patient continued to be on a ventilator with no seizure-like activity reported or observed. On contact, the patient was supine in bed with family members at the bedside. Patient was intubated, not sedated. Patient would intermittently open her eyes with prompting but not consistently. Patient does not appear to have improved from prior reported state. Objective - Vital Signs Vital signs: Vital Signs Temp 100.0 F H 04/24/16 02:00 Pulse 74 04/24/16 05:00 Resp 23 04/24/16 05:00 BP 139/65 04/24/16 05:00 Pulse Ox 94 L 04/24/16 05:00 Intake & Output 04/23/16 04/23/16 04/24/16 06:59 18:59 06:59 Intake Total 8610.274 4885.119 854.161 Output Total 390 1275 292 Balance 1259.188 292.119 562.161 Weight 105.7 kg 105.7 kg Intake: IV 1100 Sodium Chloride 0.9% 1, 1100 000 ml @ 100 mls/hr IV . Q10H [facility] Rx#:[id number] Intake, IV Titration 648.881 7945.119 674.161 Amount Heparin Sodium,Porcine/ 373.962 126.038 414.161 D5w Pmx 25,000 unit In Dextrose/Water 1 500ml. bag @ 9.95 UNITS/KG/HR 19 .99 mls/hr IV .Q24H [facility] Rx#:[id number] Magnesium Sulfate-D5w Pmx 200 1 gm In Dextrose/Water 1 100ml.bag @ 100 mls/hr IVPB Q1H [facility] Rx#: [id number] Potassium Chloride 10 meq 100 100 Lidocaine 2% Inj 10 mg In Sodium Chloride 0.9% 100 ml @ 100 mls/hr IV Q1HR [facility] Rx#:[id number] Potassium Chloride 10 meq 200 Lidocaine 2% Inj 10 mg In Sodium Chloride 0.9% 100 ml @ 100 mls/hr IV Q1HR [facility] Rx#:[id number] Potassium Chloride 10 meq 200 Lidocaine 2% Inj 10 mg In Sodium Chloride 0.9% 100 ml @ 100 mls/hr IV Q1HR [facility] Rx#:[id number] Propofol 500 mg In Empty 15.226 31.081 Bag 1 bag @ Titrate IV . Q0M [facility] Rx#:[id number] Sodium Chloride 0.9% 1, 580 260 000 ml @ 40 mls/hr IV . Q24H [facility] Rx#:[id number] Tube Feeding 70 150 Other 60 60 30 Output: Urine 390 1275 292 Other: Voiding Method Indwelling Catheter Indwelling Catheter Indwelling Catheter # Bowel Movements 0 - Exam Constitutional: AOx1, intermittently responsive Head: NC/AT Throat: Supple, no masses Respiratory: No increased work of breathing Cardiac: Regular rate and Rhythm GI: non tender, non distended Musculoskeletal: [employer] strengths are equal bilaterally 0/5, Lower extremity strengths are equal bilaterally at 0/5. Neurological: patient is unresponsive to most stimuli but will intermittently respond to verbal stimuli by turning of the head or opening eyes but not in a consistent or frequent manner. Reflexes are also inconsistent with rechecking sites. Patient will intermittently withdraw with pain but again will also be inconsistent when rechecking sites. It does not appear that there is responses are purposeful. Brainstem reflexes are intact including corneal reflex, oculocephalic reflex, pupillary reflex. Plantar reflex still showed silent toes bilaterally. He is not moving her extremities. No seizure-like activity is seen. No obvious facial asymmetry. Integementary: no rash, no erythema - Labs CBC & Chem 7: 04/24/16 05:07 04/24/16 05:07 Labs: Abnormal Lab Results - Last 24 Hours (Table) 04/23/16 04/23/16 04/23/16 Range/Units 06:22 12:23 18:30 WBC (3.8-10.6) k/uL APTT (22.0-30.0) sec ABG pCO2 (35-45) mmHg ABG pO2 (83-108) mmHg ABG HCO3 (21-25) mmol/L ABG O2 Saturation (94-97) % Chloride (98-107) mmol/L Carbon Dioxide (22-30) mmol/L BUN (7-17) mg/dL Glucose (74-99) mg/dL POC Glucose (mg/dL) 148 H 177 H 133 H (75-99) mg/dL Magnesium (1.6-2.3) mg/dL AST (14-36) U/L ALT (9-52) U/L Total Protein (6.3-8.2) g/dL Albumin (3.5-5.0) g/dL 04/23/16 04/24/16 04/24/16 Range/Units 21:25 02:39 04:06 WBC (3.8-10.6) k/uL APTT (22.0-30.0) sec ABG pCO2 33 L (35-45) mmHg ABG pO2 149 H (83-108) mmHg ABG HCO3 20 L (21-25) mmol/L ABG O2 Saturation 99.0 H (94-97) % Chloride 114 H (98-107) mmol/L Carbon Dioxide 20 L (22-30) mmol/L BUN (7-17) mg/dL Glucose 142 H (74-99) mg/dL POC Glucose (mg/dL) 134 H (75-99) mg/dL Magnesium 2.6 H (1.6-2.3) mg/dL AST 77 H (14-36) U/L ALT 137 H (9-52) U/L Total Protein 5.7 L (6.3-8.2) g/dL Albumin 2.8 L (3.5-5.0) g/dL 04/24/16 04/24/16 04/24/16 Range/Units 05:07 05:07 05:07 WBC 15.7 H (3.8-10.6) k/uL APTT 47.8 H (22.0-30.0) sec ABG pCO2 (35-45) mmHg ABG pO2 (83-108) mmHg ABG HCO3 (21-25) mmol/L ABG O2 Saturation (94-97) % Chloride 115 H (98-107) mmol/L Carbon Dioxide 19 L (22-30) mmol/L BUN 19 H (7-17) mg/dL Glucose 147 H (74-99) mg/dL POC Glucose (mg/dL) (75-99) mg/dL Magnesium (1.6-2.3) mg/dL AST (14-36) U/L ALT (9-52) U/L Total Protein (6.3-8.2) g/dL Albumin (3.5-5.0) g/dL 04/24/16 Range/Units 05:47 WBC (3.8-10.6) k/uL APTT (22.0-30.0) sec ABG pCO2 (35-45) mmHg ABG pO2 (83-108) mmHg ABG HCO3 (21-25) mmol/L ABG O2 Saturation (94-97) % Chloride (98-107) mmol/L Carbon Dioxide (22-30) mmol/L BUN (7-17) mg/dL Glucose (74-99) mg/dL POC Glucose (mg/dL) 140 H (75-99) mg/dL Magnesium (1.6-2.3) mg/dL AST (14-36) U/L ALT (9-52) U/L Total Protein (6.3-8.2) g/dL Albumin (3.5-5.0) g/dL Microbiology - Last 24 Hours (Table) 04/22/16 00:30 Gram Stain - Preliminary Sputum Sputum Culture - Preliminary Assessment and Plan (1) Cardiac arrest Status: Acute (2) Cardiopulmonary arrest Status: Acute Plan: 1. Post cardiac arrest, unresponsive: After today's physical assessment in conjunction with the previous physical assessments, clinical presentation and recent history, there is significant concern for anoxic brain injury. She has been off sedation for an extended period of time and continues to be relatively unresponsive. It is very likely that the patient has suffered an anoxic brain injury. Neurological assessment will be conducted tomorrow morning and nursing has been advised to stop all IV sedating medications for 6 hours and stop IV drip sedating medications for 6 hours prior to conducting the assessment. Verbal orders were given to nursing for medication changes to facilitate the exam. Continue neuro checks as ordered. Notify neurology with any neurological changes immediately. Repeat neurological assessment on 04/24/16 at 10:30 AM with results forwarded to Dr. Doty for evaluation in consultation with the patient's treatment team. Status: Neurology will continue to follow. Overall prognosis: POOR I discussed the patient's pertinent medical information with Dr. Doan. He agrees with the plan of care as implemented.
[2016-04-24] MEDS: KETOROLAC 30 MG/ML 1 ML VIAL IVP PRN ×2 (07:12→16:27)
--- NOTE | 2016-04-24 07:17 | EEG ---
DATE OF SERVICE: 04/23/2016 INDICATIONS FOR EXAMINATION: Altered mental status. AGE: 75Y DESCRIPTION OF THE PROCEDURE: This EEG was performed using a 21-channel digital electroencephalograph, following the international 10 to 20 system. DESCRIPTION OF THE RECORDING: From the beginning of the tracing, and with the patient's eyes closed, the background rhythm was mostly consisting of 5 to 6 Hz theta frequency in the posterior occipital leads. No obvious asymmetry is seen. Rare movement artifacts are noticed. Photic stimulation was performed with no driving response seen. No pathological waves were elicited. The patient remains awake throughout the tracing. No epileptiform discharges were seen. Hyperventilation was not performed. Her EKG lead showed an irregularly irregular rhythm. INTERPRETATION: This awake EEG is abnormal due to the presence of generalized slowing of the background rhythm, mostly in the theta range. This is consistent with moderate encephalopathy. Given her history, this is likely due to anoxic encephalopathy. Of note, her EKG lead showed an irregularly irregular rhythm. No epileptiform discharges were seen. Clinical correlation is recommended.
[2016-04-24] MEDS: PANTOPRAZOLE 40 MG/10 ML VIAL IV SCH (08:19)
[2016-04-24] MEDS: ASPIRIN 81 MG CHEW PO SCH (08:20)
[2016-04-24] MEDS: SPIRONOLACTONE 25 MG TAB PO SCH (08:20)
[2016-04-24 08:24] LABS: Add Differential Manual Differential
[2016-04-24 08:25] LABS: Nucleated Red Blood Cells 0 /100 WBC (0-0)
--- NOTE | 2016-04-24 08:25 | XR ---
EXAMINATION TYPE: XR chest 1V DATE OF EXAM: 04/24/2016 6:49 AM COMPARISON: NONE HISTORY: ET tube placement TECHNIQUE: Single frontal view of the chest is obtained. FINDINGS: ET and NG tube stable. Bilateral infiltrate and small effusion seen greater on the right. Heart is enlarged. No pneumothorax. IMPRESSION: 1. Correlate bilateral subsegmental atelectasis or infiltrate and small effusion greater on the right are slightly more progressed. Correlate for mild CHF.
[2016-04-24 08:26] LABS: Manual Review Performed; RBC Morphology Normal; Total Cells Counted 200
[2016-04-24] MEDS: METOPROLOL TARTRATE 25 MG TAB PO SCH ×2 (09:45→20:37)
[2016-04-24] MEDS: amLODIPine 10 MG TAB PO SCH (10:09)
[2016-04-24 11:30] VITALS: BMI 38.1
[2016-04-24 11:55] LABS: Glucose,Whole Blood 144 mg/dL (75-99)
[2016-04-24 12:06] LABS: ABG Base Excess -3.2 mmol/L; ABG HCO3 21 mmol/L (21-25); ABG PCO2 37 mmHg (35-45); ABG PH 7.37 (7.35-7.45); ABG PO2 125 mmHg (83-108); ABG TCO2 22 mmol/L (19-24)
[2016-04-24] MEDS: POTASSIUM CHLORIDE 10 MEQ, LIDOCAINE 2% INJ 10 MG in SODIUM CHLORIDE 0.9% 100 ML IV SCH ×4 (12:26→21:17)
[2016-04-24] MEDS: hydrALAZINE HCL 20 MG/ML 1 ML VIAL IVP PRN ×2 (13:40→19:01)
--- NOTE | 2016-04-24 16:05 | P.PN ---
Subjective This is a 75-year-old female one of my patient with a previous medical history significant for hypertension and hypertensive cardio vascular disease with left ventricular hypertrophy, hyperlipidemia, history of atrial flutter/fibrillation status post 3 ablation therapy under the care of cardiology , rheumatoid arthritis, polymyalgia rheumatica, fibromyalgia, hypothyroidism, patient developed to have a significant upper respiratory tract infection that was treated about 10 days ago and the patient was feeling fine up until Wednesday when she started to feel bad again, yesterday she was talking to her daughter on the phone and the patient was having episodes of nausea vomiting and diarrhea for the past 48 hours, felt generally weak,and while she was talking with her daughter on the phone trying to get back to see her patient became unresponsive and the patient daughter got there and patient was laying in bed unresponsive according to her there was a pulse of that time period and after that she lost her pulse and she started CPR by herself and she called 911 at the same time and EMS where there within 5 minutes and according to the daughter due to the total downtime was not more than 10 minutes probably 15 minutes patient was intubated in the scene she was shocked once and she was transported to [facility] where she was placed on the ventilator she was given IV fluid resuscitation she was admitted to the hospital she had a computed tomography scan of the chest abdomen and pelvis without any acute abnormalities there was no evidence of pulmonary embolism, she had a computed tomography scan of the brain that did not show any evidence of acute abnormalities, patient was admitted to the hospital she was placed on the ventilator and she was seen in consultation by pulmonary medicine as well as by cardiology, her cardiac enzymes came back positive her troponin was slightly elevated suggestive of non-ST elevation SC. 04/23: Patient remains intubated and on mechanical ventilation. EEG was done that was limited with muscle artifact no obvious seizure activity. Repeat CAT scan of the brain showed no acute abnormalities. Patient was agitated and restless during the night and about tachypnea and tachycardia and hypertension. She was placed back on Diprivan. She was then noted to have prolonged QT interval and cardiology recommended amiodarone which seemed to worsen the QT prolongation and she had a short run of torsades and V. tach requiring defibrillation. She received magnesium with repeat dosing given this morning. Amiodarone was discontinued 2 feedings have been initiated. Urine output has been less than 10 mL and Lasix given. 04/24: Patient has been seen by Dr. Patterson with recommendations to keep potassium greater than 4, magnesium greater than 2 and ovoid amiodarone. Possible need for dual chamber ICD. Patient is followed by neurology with concern for anoxic brain injury. EEG abnormal. She has been successfully extubated. She is awake and slow to respond. Hand cardiovascular operating room nurse equal and strong. She can tell her daughter "I love you." Objective - Vital Signs Vital signs: Vital Signs Temp 99.3 F 04/24/16 08:00 Pulse 84 04/24/16 11:08 Resp 18 04/24/16 11:08 BP 175/79 04/24/16 11:08 Pulse Ox 99 04/24/16 11:08 Intake & Output 04/23/16 04/24/16 04/24/16 18:59 06:59 18:59 Intake Total 6171.549 5358.161 520 Output Total 1275 292 707 Balance 292.119 932.161 -187 Weight 105.7 kg 103.9 kg Intake: Intake, IV Titration 1437.119 854.161 200 Amount Heparin Sodium,Porcine/ 126.038 414.161 D5w Pmx 25,000 unit In Dextrose/Water 1 500ml. bag @ 9.95 UNITS/KG/HR 19 .99 mls/hr IV .Q24H MAGAN Rx#:[id number] Magnesium Sulfate-D5w Pmx 200 1 gm In Dextrose/Water 1 100ml.bag @ 100 mls/hr IVPB Q1H MAGAN Rx#: [id number] Potassium Chloride 10 meq 100 Lidocaine 2% Inj 10 mg In Sodium Chloride 0.9% 100 ml @ 100 mls/hr IV Q1HR MAGAN Rx#:[id number] Potassium Chloride 10 meq 200 Lidocaine 2% Inj 10 mg In Sodium Chloride 0.9% 100 ml @ 100 mls/hr IV Q1HR MAGAN Rx#:[id number] Potassium Chloride 10 meq 200 Lidocaine 2% Inj 10 mg In Sodium Chloride 0.9% 100 ml @ 100 mls/hr IV Q1HR MAGAN Rx#:[id number] Propofol 500 mg In Empty 31.081 Bag 1 bag @ Titrate IV . Q0M MAGAN Rx#:[id number] Sodium Chloride 0.9% 1, 580 440 200 000 ml @ 40 mls/hr IV . Q24H MAGAN Rx#:[id number] Tube Feeding 70 310 170 Other 60 60 150 Output: Gastric Drainage 300 Urine 1275 292 407 Other: Voiding Method Indwelling Catheter Indwelling Catheter Indwelling Catheter - Exam General appearance: obese, severe distress - EENT Eyes: no EOMI, no PERRLA, no scleral icterus, no normal appearance ENT: other (ET tube in andOGT in place.) Ears: bilateral: normal - Neck Neck: no lymphadenopathy, no rigidity, no stridor, no thyromegaly Carotids: bilateral: upstroke normal Thyroid: bilateral: normal size - Respiratory Respiratory: bilateral: diminished, negative: dullness, rales, rhonchi, wheezing , prolonged expiration, prolonged inspiration - Cardiovascular Rhythm: regular Heart sounds: normal: S1, S2 Abnormal Heart Sounds: systolic murmur, no rub - Gastrointestinal General gastrointestinal: decreased bowel sounds, soft, no splenomegaly, no tenderness, no umbilical hernia, no ventral hernia - Integumentary Integumentary: normal, normal turgor - Neurologic Neurologic: focal deficits - Psychiatric Psychiatric: Reports opens eyes to verbal stimula, O x's 1, no appropriate affect, no intact judgment & insight - Labs CBC & Chem 7: 04/24/16 05:07 04/24/16 10:52 Labs: Abnormal Lab Results - Last 24 Hours (Table) 04/23/16 04/23/16 04/23/16 Range/Units 12:23 18:30 21:25 WBC (3.8-10.6) k/uL Neutrophils # (Manual) (1.3-7.7) k/uL Lymphocytes # (Manual) (1.0-4.8) k/uL APTT (22.0-30.0) sec ABG pCO2 (35-45) mmHg ABG pO2 (83-108) mmHg ABG HCO3 (21-25) mmol/L ABG O2 Saturation (94-97) % Chloride 114 H (98-107) mmol/L Carbon Dioxide 20 L (22-30) mmol/L BUN (7-17) mg/dL Glucose 142 H (74-99) mg/dL POC Glucose (mg/dL) 177 H 133 H (75-99) mg/dL Magnesium 2.6 H (1.6-2.3) mg/dL AST 77 H (14-36) U/L ALT 137 H (9-52) U/L Total Protein 5.7 L (6.3-8.2) g/dL Albumin 2.8 L (3.5-5.0) g/dL 04/24/16 04/24/16 04/24/16 Range/Units 02:39 04:06 05:07 WBC 15.7 H (3.8-10.6) k/uL Neutrophils # (Manual) 15.2 H (1.3-7.7) k/uL Lymphocytes # (Manual) 0.3 L (1.0-4.8) k/uL APTT (22.0-30.0) sec ABG pCO2 33 L (35-45) mmHg ABG pO2 149 H (83-108) mmHg ABG HCO3 20 L (21-25) mmol/L ABG O2 Saturation 99.0 H (94-97) % Chloride (98-107) mmol/L Carbon Dioxide (22-30) mmol/L BUN (7-17) mg/dL Glucose (74-99) mg/dL POC Glucose (mg/dL) 134 H (75-99) mg/dL Magnesium (1.6-2.3) mg/dL AST (14-36) U/L ALT (9-52) U/L Total Protein (6.3-8.2) g/dL Albumin (3.5-5.0) g/dL 04/24/16 04/24/16 04/24/16 Range/Units 05:07 05:07 05:47 WBC (3.8-10.6) k/uL Neutrophils # (Manual) (1.3-7.7) k/uL Lymphocytes # (Manual) (1.0-4.8) k/uL APTT 47.8 H (22.0-30.0) sec ABG pCO2 (35-45) mmHg ABG pO2 (83-108) mmHg ABG HCO3 (21-25) mmol/L ABG O2 Saturation (94-97) % Chloride 115 H (98-107) mmol/L Carbon Dioxide 19 L (22-30) mmol/L BUN 19 H (7-17) mg/dL Glucose 147 H (74-99) mg/dL POC Glucose (mg/dL) 140 H (75-99) mg/dL Magnesium (1.6-2.3) mg/dL AST (14-36) U/L ALT (9-52) U/L Total Protein (6.3-8.2) g/dL Albumin (3.5-5.0) g/dL Microbiology - Last 24 Hours (Table) 04/22/16 00:30 Gram Stain - Final Sputum Sputum Culture - Final Assessment and Plan Plan: 1. Acute hypoxic ventilator-dependent respiratory failure due to acute cardiopulmonary arrest followed by DC cardioversion 1 on the scene -- extubated. Continue management as per pulmonary as well as cardiology. Continue DVT prophylaxis, continue GI prophylaxis. 2. History of chronic atrial fibrillation/flutter post-ablation 3. 3. Hypertension and hypertensive cardiovascular disease. Continue labetalol 10 mg IV push every 4 hours as needed, continue metoprolol 25 mg per OGT twice every day, continue Catapres patch 0.1 mg once every week. 4. Cardiac arrhythmia with non-ST elevation SC. Continue aspirin 325 mg orally once every day, continue heparin drip, continue amiodarone drip, cardiology consultation, echocardiogram was reviewed showed normal LV function with mild mitral and tricuspid regurgitation. 5. Hypothyroidism. Continue levothyroxine 175 g per OGT once every day. 6. Hyperlipidemia. Continue Lipitor. 7. Polymyalgia rheumatica. Currently on hydrocortisone 100 mg IV push every 8 hours. 8. Fibromyalgia. Continue gabapentin 600 mg orally twice every day. 9. History of CVA/TIA. Continue anticoagulation for life. 10. DVT prophylaxis. Continue heparin drip for now. 11. GI prophylaxis. Continue Protonix 40 mg IV push every 24 hours. 12. Oliguria with output of 10 mL per hour. Lasix given. 13. 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 Patient is a full code. Prognosis: guarded Impression and plan of care have been directed as dictated by the signing physician. Johanna Sanford nurse practitioner acting as scribe for signing physician. Time with Patient: Greater than 30
--- NOTE | 2016-04-24 16:34 | P.PN ---
Subjective 75-year-old female patient with known history of chronic atrial fibrillation status post ablation procedure that was done at [facility], hypertension and hypertensive heart disease in addition to polymyalgia rheumatica/rheumatoid arthritis maintained on 4 mg of prednisone outpatient basis, chronic back pain, right rotator cuff injury, hypothyroidism, who presented yesterday to the emergency department after she was found to be in cardiac arrest Apparently, according to reported history, the patient's daughter was communicating with her over the phone when she acutely collapse. The daughter reports that she arrived to the scene within few minutes, 5 minutes max, and EMS came in to the scene and the patient was receiving CPR by the daughter during this time. The patient was placed on a monitor and she got defibrillated and subsequently there was return of spontaneous circulation. The exact downtime cannot be appropriately engaged however we think that she was on probably for around 10-15 minutes. She was intubated on the scene and the patient was moved to the emergency department first and then to the intensive care unit. CAT scan of the brain that was done in the burst department showed no acute abnormalities. CT of the chest showed no acute abnormality the patient had no evidence of pulmonary embolism. There was some haziness in the lung charles bilaterally consistent partly with some early CHF. Nevertheless no airspace disease or pulmonary infiltrates was noted. The patient also had a CAT scan of the abdomen and pelvis did came back within normal limits. Overnight the patient was kept intubated on mechanical ventilator. She was given Diprivan for sedation knowing that she was having some degree of agitation and asynchrony with a mechanical ventilator. At the time of my evaluation this morning, the patient was taken off Diprivan and she demonstrates spontaneous eye opening although her gaze was non-fixed and she was having rotational movements. Her pupils around 3-4 mm in size and they're reactive to light although sluggish. No hyperreflexia. No Babinski. At the later stage she started posturing. EEG was ordered. Carotid Doppler was ordered. Neurology consultation was ordered. No seizure activity has been noted. No further cardiac arrhythmias have been noted the patient's cardiac rhythm it's remained sinuses she arrived to the intensive care unit. She remained hemodynamically stable although there has been some fluctuation in her blood pressure. At times her systolic blood pressure without the low 90s and subsequently after holding her blood pressure medication she will shoot up to the 170s 190 systolic blood pressure. Urine output is adequate. No fever. No chills. No reported aspiration. Chest x-ray was clear. Urine output was adequate for the time being. I discussed the case with cardiology. I put the patient a combination of aspirin and IV heparin. I also put the patient on metoprolol 25 mg by mouth twice a day. Room Service Waiter later stage decided to proceed with amiodarone treatment knowing that this could've been a cardiac arrest/V. tach/V. fib. The patient is currently being loaded with amiodarone in addition. No plans for any cardiac chemistry specialist that there is concern of an underlying mental status and possibility of hypoxic encephalopathy. She was also started on stress dose hydrocortisone knowing that she has been chronically maintained on prednisone on outpatient basis. EKG was shot showing any acute abnormalities and there is no ST segment elevation or depression. The troponins were positive and this is probably related defibrillation and CPR. On 04/23/2016 the patient is being seen in follow-up. Note that over the past 24 hours, the patient was taken off Diprivan and she was opening her eyes yet she was not following any commands. She would grimace to deep painful stimuli. There was obvious signs of hypoxic encephalopathy secondary to cardiac arrest. The EEG was limited due to muscle artifact. There was no obvious seizure activity noted. A repeat CAT scan was done around midnight and it showed no acute abnormalities. Overnight the patient became a bit more agitated and restless and she was thrashing around and developed some tachypnea tachycardia and hypertension. Based on that she had to be placed back on Diprivan drip which is currently running at 10 g per KG pigmented. Her condition has settled down since then. In terms of her cardiac status, the patient was noted to have prolongation of the QT interval. Cardiology recommended amiodarone which made her QT prolongation even worse and the patient had frequent ectopies and ultimately she had a short run of torsades, and polymorphic V. tach that was immediately defibrillated here in the ICU. The patient was given magnesium a total of 4 g and is magnesium level was brought up to 2.4. Then amiodarone drip was discontinued. I contacted the bearingizer and I further discussions with Dr. Ayoub recommended beta mahogany treatment only. Since yesterday, the patient has not had any significant cardiac arrhythmias. His cardiac rhythm is sinus. Daily remains prolonged. Hemodynamically, no hypotension, urine output has dropped earlier this morning. Noted the patient has been resuscitated aggressively with IV fluids. We will try diuresis to improve the patient's urine output. On 04/24/2016 the patient is being seen in follow-up in the intensive care unit. The patient has improved significantly in terms of her neurologic functions. She was able to open up her eyes spontaneously, look around and follow some simple commands. She was able to follow commands such as squeezing my fingers blinking her eyes, etc. Hemodynamically she was stable. Her cardiac rhythm was sinus. No significant cardiac arrhythmias have been noted over the past 24 hours. The patient wasn't still on a mechanical ventilator on assist control mode and today's chest x-ray showed no significant signs of any fluid overload. There is some cardiomegaly and some mild pulmonary vascular congestion. The patient's urine output is improved significantly after she was given Lasix IV 40 mg every 12 hours. Fluid balance iis becoming negative for the next 24 hours. No seizure activity has been noted. Her neurologic exam is nonfocal. Based on all these positive findings, I was able to obtain some weaning parameters on this patient in the bedside and following that I gave the patient spelled his breathing trial with a pressure support of 5 and PEEP of 5 which she was able to tolerate without any major difficulties. 45 minutes into the trial, the patient had a blood gas that showed adequate oxygenation and ventilation and based on that I make the decision to extubate the patient. Postextubation, there was no stridor or any difficulties in treating the patient 's respiratory secretions. She remained hemodynamically stable. In fact her blood pressure was somewhat on the higher side and for that reason the patient was given IV hydralazine. She is also on beta blockers. No other antiarrhythmic medications for now. Objective - Vital Signs Vital signs: Vital Signs Temp 97.6 F 04/24/16 16:00 Pulse 88 04/24/16 16:00 Resp 13 04/24/16 16:00 BP 159/77 04/24/16 16:00 Pulse Ox 98 04/24/16 16:00 Intake & Output 04/23/16 04/24/16 04/24/16 18:59 06:59 18:59 Intake Total 0785.130 3150.161 720 Output Total 7997 397 5868 Balance 292.119 932.161 -947 Weight 105.7 kg 103.9 kg 103.9 kg Intake: Intake, IV Titration 1437.119 854.161 400 Amount Heparin Sodium,Porcine/ 126.038 414.161 D5w Pmx 25,000 unit In Dextrose/Water 1 500ml. bag @ 9.95 UNITS/KG/HR 19 .99 mls/hr IV .Q24H MAGAN Rx#:[id number] Magnesium Sulfate-D5w Pmx 200 1 gm In Dextrose/Water 1 100ml.bag @ 100 mls/hr IVPB Q1H MAGAN Rx#: [id number] Potassium Chloride 10 meq 100 Lidocaine 2% Inj 10 mg In Sodium Chloride 0.9% 100 ml @ 100 mls/hr IV Q1HR MAGAN Rx#:[id number] Potassium Chloride 10 meq 200 Lidocaine 2% Inj 10 mg In Sodium Chloride 0.9% 100 ml @ 100 mls/hr IV Q1HR MAGAN Rx#:[id number] Potassium Chloride 10 meq 200 Lidocaine 2% Inj 10 mg In Sodium Chloride 0.9% 100 ml @ 100 mls/hr IV Q1HR MAGAN Rx#:[id number] Propofol 500 mg In Empty 31.081 Bag 1 bag @ Titrate IV . Q0M MAGAN Rx#:[id number] Sodium Chloride 0.9% 1, 580 440 400 000 ml @ 40 mls/hr IV . Q24H MAGAN Rx#:[id number] Tube Feeding 70 310 170 Other 60 60 150 Output: Gastric Drainage 300 Urine 9322 795 7337 Other: Voiding Method Indwelling Catheter Indwelling Catheter Indwelling Catheter - Exam Head exam was generally normal. There was no scleral icterus or corneal arcus. Mucous membranes were moist.Neck was supple and without jugular venous distension, thyromegaly, or carotid bruits. Carotids were easily palpable bilaterally. There was no adenopathy.lung sounds are diminished in lung bases bilaterally along with some few scattered expiratory rhonchi.Cardiac exam revealed the PMI to be normally situated and sized. The rhythm was regular and no extrasystoles were noted during several minutes of auscultation. The first and second heart sounds were normal and physiologic splitting of the second heart sound was noted. There were no murmurs, rubs, clicks, or gallops.Abdominal exam revealed normal bowel sounds. The abdomen was soft, non- tender, and without masses, organomegaly, or appreciable enlargement of the abdominal aorta.Examination of the extremities revealed easily palpable radial, femoral and pedal pulses. There was no cyanosis, clubbing or edema. Neurologically the exam is nonfocal and the patient is following simple commands and she is able to hold short conversations. No Babinski. No clonus. - Labs CBC & Chem 7: 04/24/16 05:07 04/24/16 10:52 Labs: Abnormal Lab Results - Last 24 Hours (Table) 04/23/16 04/23/16 04/24/16 Range/Units 18:30 21:25 02:39 WBC (3.8-10.6) k/uL Neutrophils # (Manual) (1.3-7.7) k/uL Lymphocytes # (Manual) (1.0-4.8) k/uL APTT (22.0-30.0) sec ABG pCO2 (35-45) mmHg ABG pO2 (83-108) mmHg ABG HCO3 (21-25) mmol/L ABG O2 Saturation (94-97) % Chloride 114 H (98-107) mmol/L Carbon Dioxide 20 L (22-30) mmol/L BUN (7-17) mg/dL Glucose 142 H (74-99) mg/dL POC Glucose (mg/dL) 133 H 134 H (75-99) mg/dL Magnesium 2.6 H (1.6-2.3) mg/dL AST 77 H (14-36) U/L ALT 137 H (9-52) U/L Total Protein 5.7 L (6.3-8.2) g/dL Albumin 2.8 L (3.5-5.0) g/dL 04/24/16 04/24/16 04/24/16 Range/Units 04:06 05:07 05:07 WBC 15.7 H (3.8-10.6) k/uL Neutrophils # (Manual) 15.2 H (1.3-7.7) k/uL Lymphocytes # (Manual) 0.3 L (1.0-4.8) k/uL APTT (22.0-30.0) sec ABG pCO2 33 L (35-45) mmHg ABG pO2 149 H (83-108) mmHg ABG HCO3 20 L (21-25) mmol/L ABG O2 Saturation 99.0 H (94-97) % Chloride 115 H (98-107) mmol/L Carbon Dioxide 19 L (22-30) mmol/L BUN 19 H (7-17) mg/dL Glucose 147 H (74-99) mg/dL POC Glucose (mg/dL) (75-99) mg/dL Magnesium (1.6-2.3) mg/dL AST (14-36) U/L ALT (9-52) U/L Total Protein (6.3-8.2) g/dL Albumin (3.5-5.0) g/dL 04/24/16 04/24/16 04/24/16 Range/Units 05:07 05:47 10:41 WBC (3.8-10.6) k/uL Neutrophils # (Manual) (1.3-7.7) k/uL Lymphocytes # (Manual) (1.0-4.8) k/uL APTT 47.8 H (22.0-30.0) sec ABG pCO2 (35-45) mmHg ABG pO2 125 H (83-108) mmHg ABG HCO3 (21-25) mmol/L ABG O2 Saturation 99.0 H (94-97) % Chloride (98-107) mmol/L Carbon Dioxide (22-30) mmol/L BUN (7-17) mg/dL Glucose (74-99) mg/dL POC Glucose (mg/dL) 140 H (75-99) mg/dL Magnesium (1.6-2.3) mg/dL AST (14-36) U/L ALT (9-52) U/L Total Protein (6.3-8.2) g/dL Albumin (3.5-5.0) g/dL 04/24/16 Range/Units 11:53 WBC (3.8-10.6) k/uL Neutrophils # (Manual) (1.3-7.7) k/uL Lymphocytes # (Manual) (1.0-4.8) k/uL APTT (22.0-30.0) sec ABG pCO2 (35-45) mmHg ABG pO2 (83-108) mmHg ABG HCO3 (21-25) mmol/L ABG O2 Saturation (94-97) % Chloride (98-107) mmol/L Carbon Dioxide (22-30) mmol/L BUN (7-17) mg/dL Glucose (74-99) mg/dL POC Glucose (mg/dL) 144 H (75-99) mg/dL Magnesium (1.6-2.3) mg/dL AST (14-36) U/L ALT (9-52) U/L Total Protein (6.3-8.2) g/dL Albumin (3.5-5.0) g/dL Microbiology - Last 24 Hours (Table) 04/22/16 00:30 Gram Stain - Final Sputum Sputum Culture - Final Assessment and Plan Plan: Assessment 1 acute cardiac arrest, most likely a cardiac arrhythmia related to either V. tach or V. fib. The patient was defibrillated on the scene with return of spontaneous circulation with an exact downtime estimated to be at least 10-15 minutes. Currently she is hemodynamic is stable. No further cardiac arrhythmias of been noted. EKG is within normal limits. Cardiac rhythm is sinus. Troponins are minimally elevated and this is probably secondary to CPR. On 04/23/2016 the patient is being seen in follow-up. The patient had prolongation of QT and developed a short run of a torsades while being on amiodarone. There is a was discontinued and the patient was kept only on beta mahogany. Because of cardiac arrest is suspected to be ventricular arrhythmia. on 04/24/2016 the patient is being seen in follow-up. QT interval is still somewhat prolonged however there is no evidence of any ventricular arrhythmias such as ventricular tachycardia or fibrillation or torsades. The patient is maintained on beta mahogany. Dr. Ayoub is seeing this patient. Catheterization will be given for later on EP studies and possible AICD placement. 2 acute respiratory failure secondary to above , recovered and the patient was weaned off the mechanical ventilator and extubated without any major difficulties. 3 hypoxic encephalopathy improving and the patient has developed significant neurologic recovery and the patient was weaned off the mechanical ventilator and extubated. 4 chronic atrial fibrillation status post cardiac ablation and current rhythm is sinus. The patient was medicated with warfarin on outpatient basis and the PT/INR was subtherapeutic at a time of admission 5. Poly-myalgia rheumatica maintained on systemic steroids and the patient was taking 4 mg of prednisone on outpatient basis and currently she'll be placed on hydrocortisone stress dose 6 hypothyroidism 7 hyperlipidemia 8 previous history of CVA/TIA 9 chronic pain involving the back and the right shoulder as the patient has a component of rotator cuff. 10 preserved LV function with an echo Showing no acute abnormalities. In addition, the CAT scan of the chest abdomen and pelvis was nonrevealing Plan the patient was extubated successfully. Pulmonary toileting. Provide the patient incentive spirometer. Monitor the cardiac rhythm for another 24 hours. Proceed with diuresis and keep the patient negative fluid balance over the next 24 hours. Monitor the potassium level. Monitor magnesium level. Continue beta blockers. discontinue IV heparin . Continue stress dose hydrocortisone.we'll continue following up this patient. ICU for 24 hours.case was discussed at length with the daughter. This was a critically care evaluation that was done and ICU for more than 45 minutes. Time with Patient: Greater than 30
[2016-04-24 17:54] LABS: Glucose,Whole Blood 115 mg/dL (75-99)
[2016-04-24 18:02] LABS: Potassium 3.1 mmol/L (3.5-5.1)
[2016-04-24] MEDS: MAGNESIUM SULFATE-D5W PMX 1 GM in DEXTROSE/WATER 1 100ML.BAG IVPB SCH ×2 (19:18→20:37)
--- NOTE | 2016-04-24 21:31 | P.PN ---
Subjective Principal diagnosis: Unresponsiveness status post cardiac arrest: possible anoxic brain injury Patient is a 75-year-old female being followed by Neurology for status post cardiac arrest unresponsiveness. Patient has an approximate known downtime of 5 minutes before CPR was initiated and an unknown duration between CPR initiation EMS arrival and advanced cardiac life support measures started. patient has a history of atrial fibrillation and flutter and has had ablations in the past. She was intubated on scene and then was found to be hypertensive in the ED arrival and sedated. CT scan of the brain was done showing no injured cranial abnormalities that were acute. Small vessel ischemic changes were noted. CT of the chest was negative for pulmonary embolism despite her elevated d-dimer. Elevated d-dimer may be related to CPR initiation in the field. Cardiac enzymes showed elevated troponin I at arrival. CBC showed leukocytosis but was otherwise normal. CMP showed hypokalemia and hepatic insufficiency. EEG was conducted but was quite limited due to the frequency of movement and muscle artifact. On April 22 at 9 AM sedation was stopped and the patient remained unresponsive. Patient continued to be on a ventilator with no seizure-like activity reported or observed. Today, the patient was extubated and was breathing unassisted. She was responding to verbal commands by family members present in the room on arrival. She was expressing emotion, but could be observed experiencing some expressive aphasia with proper word selection. She was moving all 4 extremities as well. The patient has improved significantly in terms of her neurologic functions. She was able to open up her eyes spontaneously, look around and follow some simple commands. She was able to follow commands such as squeezing my fingers blinking her eyes, etc. On contact, the patient was supine in bed with family members at the bedside, in no acute distress. Objective - Vital Signs Vital signs: Vital Signs Temp 97.6 F 04/24/16 16:00 Pulse 104 H 04/24/16 19:00 Resp 18 04/24/16 19:00 BP 175/87 04/24/16 19:00 Pulse Ox 95 04/24/16 19:00 Intake & Output 04/24/16 04/24/16 04/25/16 06:59 18:59 06:59 Intake Total 8743.891 3910.997 40 Output Total 292 1762 80 Balance 932.161 -394.003 -40 Weight 103.9 kg 103.9 kg Intake: Intake, IV Titration 854.161 847.997 40 Amount Heparin Sodium,Porcine/ 414.161 367.997 D5w Pmx 25,000 unit In Dextrose/Water 1 500ml. bag @ 9.95 UNITS/KG/HR 19 .99 mls/hr IV .Q24H [facility]AN Rx#:[id number] Sodium Chloride 0.9% 1, 440 480 40 000 ml @ 40 mls/hr IV . Q24H MAGAN Rx#:[id number] Oral 200 Tube Feeding 310 170 Other 60 150 Output: Gastric Drainage 300 Urine 292 1462 80 Other: Voiding Method Indwelling Catheter Indwelling Catheter - Exam Constitutional: AOx2, responsive and interactive. Head: NC/AT Throat: Supple, no masses Respiratory: No increased work of breathing Cardiac: Regular rate and Rhythm GI: non tender, non distended Musculoskeletal: Hair Or Beauty Salon Assistant strengths are equal bilaterally 5/5, Lower extremity strengths are equal bilaterally at 4/5. Neurological: CN II-XII in tact, patient is responsive to most stimuli, responds to verbal stimuli. Patient will speak. Reflexes are equal both UE and LE. PERRL, understands commands, remote memory intact, recent memory is impaired. Brainstem reflexes are intact including corneal reflex, oculocephalic reflex, pupillary reflex. Plantar reflex present bilaterally. . No seizure-like activity is seen. No obvious facial asymmetry. No unilateralizing weakness. Integementary: no rash, no erythema - Labs CBC & Chem 7: 04/24/16 05:07 04/24/16 16:53 Labs: Abnormal Lab Results - Last 24 Hours (Table) 04/23/16 04/24/16 04/24/16 Range/Units 21:25 02:39 04:06 WBC (3.8-10.6) k/uL Neutrophils # (Manual) (1.3-7.7) k/uL Lymphocytes # (Manual) (1.0-4.8) k/uL APTT (22.0-30.0) sec ABG pCO2 33 L (35-45) mmHg ABG pO2 149 H (83-108) mmHg ABG HCO3 20 L (21-25) mmol/L ABG O2 Saturation 99.0 H (94-97) % Potassium (3.5-5.1) mmol/L Chloride 114 H (98-107) mmol/L Carbon Dioxide 20 L (22-30) mmol/L BUN (7-17) mg/dL Glucose 142 H (74-99) mg/dL POC Glucose (mg/dL) 134 H (75-99) mg/dL Magnesium 2.6 H (1.6-2.3) mg/dL AST 77 H (14-36) U/L ALT 137 H (9-52) U/L Total Protein 5.7 L (6.3-8.2) g/dL Albumin 2.8 L (3.5-5.0) g/dL 04/24/16 04/24/16 04/24/16 Range/Units 05:07 05:07 05:07 WBC 15.7 H (3.8-10.6) k/uL Neutrophils # (Manual) 15.2 H (1.3-7.7) k/uL Lymphocytes # (Manual) 0.3 L (1.0-4.8) k/uL APTT 47.8 H (22.0-30.0) sec ABG pCO2 (35-45) mmHg ABG pO2 (83-108) mmHg ABG HCO3 (21-25) mmol/L ABG O2 Saturation (94-97) % Potassium (3.5-5.1) mmol/L Chloride 115 H (98-107) mmol/L Carbon Dioxide 19 L (22-30) mmol/L BUN 19 H (7-17) mg/dL Glucose 147 H (74-99) mg/dL POC Glucose (mg/dL) (75-99) mg/dL Magnesium (1.6-2.3) mg/dL AST (14-36) U/L ALT (9-52) U/L Total Protein (6.3-8.2) g/dL Albumin (3.5-5.0) g/dL 04/24/16 04/24/16 04/24/16 Range/Units 05:47 10:41 11:53 WBC (3.8-10.6) k/uL Neutrophils # (Manual) (1.3-7.7) k/uL Lymphocytes # (Manual) (1.0-4.8) k/uL APTT (22.0-30.0) sec ABG pCO2 (35-45) mmHg ABG pO2 125 H (83-108) mmHg ABG HCO3 (21-25) mmol/L ABG O2 Saturation 99.0 H (94-97) % Potassium (3.5-5.1) mmol/L Chloride (98-107) mmol/L Carbon Dioxide (22-30) mmol/L BUN (7-17) mg/dL Glucose (74-99) mg/dL POC Glucose (mg/dL) 140 H 144 H (75-99) mg/dL Magnesium (1.6-2.3) mg/dL AST (14-36) U/L ALT (9-52) U/L Total Protein (6.3-8.2) g/dL Albumin (3.5-5.0) g/dL 04/24/16 04/24/16 Range/Units 16:53 17:52 WBC (3.8-10.6) k/uL Neutrophils # (Manual) (1.3-7.7) k/uL Lymphocytes # (Manual) (1.0-4.8) k/uL APTT (22.0-30.0) sec ABG pCO2 (35-45) mmHg ABG pO2 (83-108) mmHg ABG HCO3 (21-25) mmol/L ABG O2 Saturation (94-97) % Potassium 3.1 L (3.5-5.1) mmol/L Chloride (98-107) mmol/L Carbon Dioxide (22-30) mmol/L BUN (7-17) mg/dL Glucose (74-99) mg/dL POC Glucose (mg/dL) 115 H (75-99) mg/dL Magnesium (1.6-2.3) mg/dL AST (14-36) U/L ALT (9-52) U/L Total Protein (6.3-8.2) g/dL Albumin (3.5-5.0) g/dL Microbiology - Last 24 Hours (Table) 04/22/16 00:30 Gram Stain - Final Sputum Sputum Culture - Final Assessment and Plan (1) Cardiac arrest Status: Acute (2) Cardiopulmonary arrest Status: Acute Plan: 1. encephalopathy: patient is status post cardiac arrest with CPR initiated. Since last rounding on this patient, she has been extubated, alert and oriented 2, highly interactive and is improving musculoskeletal strength. Extremities are equal bilaterally both upper and lower. Patient's most significant area of concern is related to recent memory and cognition. Patient has been unable to ambulate as of yet and at this time further assessment related to her balance and fine motor function are unable to be assessed. Patient did have physical therapy present in the room today. I would highly encourage aggressive physical therapy and occupational therapy as soon as possible. Patient may also need speech therapy based on what appears to be expressive aphasia that occurs intermittently. Overall, the patient has made significant improvement in the last 24 hours. EEG results: Moderate encepaholopathy Continue: Aspiring at existing dose and frequency Lipitor at existing dose and frequency Notify neurology wiht any neurological status changes immediately Status: Neurology will continue to follow. Overall prognosis: Improving I discussed the patient's pertinent medical information with Dr. Doan. He agrees with the plan of care as implemented.
[2016-04-24] MEDS: HYDROmorphone 1 MG/ML 1 ML SYRINGE IVP PRN (21:44)
[2016-04-24] MEDS: LORazepam 2 MG/ML SYRINGE IV PRN (23:53)
[2016-04-25] MEDS: HYDROmorphone 1 MG/ML 1 ML SYRINGE IVP PRN ×4 (00:18→23:45)
[2016-04-25] MEDS: HYDROCORTISONE SUCCINATE 100 MG/2 ML VIAL IV SCH ×4 (00:18→16:08)
[2016-04-25] MEDS: INSULIN LISPRO (humaLOG) 300 UNIT/3 ML VIAL SQ SCH ×4 (00:24→18:00)
[2016-04-25 00:26] LABS: Glucose,Whole Blood 111 mg/dL (75-99)
[2016-04-25 00:52] LABS: Magnesium 2.5 mg/dL (1.6-2.3)
[2016-04-25 00:58] LABS: Potassium 3.5 mmol/L (3.5-5.1)
[2016-04-25] MEDS ORDERED: Potassium Replacement Protocol 1 EACH MISC MISCELLANE PRN ×2 (01:32→21:23)
[2016-04-25] MEDS: NITROGLYCERIN OINT 1 INCH/GM PACKET TOPICAL SCH ×4 (01:40→18:03)
[2016-04-25] MEDS: POTASSIUM CHLORIDE 10 MEQ, LIDOCAINE 2% INJ 10 MG in SODIUM CHLORIDE 0.9% 100 ML IV SCH ×4 (02:24→23:46)
[2016-04-25 05:35] LABS: Aty Lym Flag Moderate; CH 30.9; CHCM 32.8; HCT 36.5 % (34.0-46.0); HDW 2.55; HGB 11.5 gm/dL (11.4-16.0); MCH 29.8 pg (25.0-35.0); MCHC 31.5 g/dL (31.0-37.0); MCV 94.6 fL (80.0-100.0); Mean Platelet Volume 8.6; RBC 3.86 m/uL (3.80-5.40); RDW 14.3 % (11.5-15.5); WBC 9.9 k/uL (3.8-10.6); WBC (Perox) 10.78
[2016-04-25 05:50] LABS: Add Differential Manual Differential
[2016-04-25 05:55] LABS: Anion Gap 6 mmol/L; Blood Urea Nitrogen 24 mg/dL (7-17); Calcium 8.7 mg/dL (8.4-10.2); Carbon Dioxide 24 mmol/L (22-30); Chloride 113 mmol/L (98-107); Glucose 124 mg/dL (74-99); Magnesium 2.5 mg/dL (1.6-2.3); Non-African American GFR(MDRD) >60 (>60 ml/min/1.73 sqM); Phosphorous 3.7 mg/dL (2.5-4.5); Potassium 4.3 mmol/L (3.5-5.1); Sodium 143 mmol/L (137-145)
[2016-04-25 05:56] LABS: Manual Review Performed; Nucleated Red Blood Cells 0 /100 WBC (0-0); Total Cells Counted 100
[2016-04-25 06:53] LABS: Glucose,Whole Blood 125 mg/dL (75-99)
[2016-04-25] MEDS: IPRATROPIUM-ALBUTEROL 3 ML NEB INHALATION PRN ×2 (07:21→11:29)
[2016-04-25] MEDS: KETOROLAC 30 MG/ML 1 ML VIAL IVP PRN ×3 (08:07→20:19)
[2016-04-25] MEDS ORDERED: ATROPINE SULFATE 0.1 MG/ML 10ML SYRINGE ONE (08:13)
[2016-04-25] MEDS: PANTOPRAZOLE 40 MG/10 ML VIAL IV SCH (08:14)
[2016-04-25] MEDS: ENOXAPARIN 40 MG/0.4 ML SYRINGE SQ SCH (08:15)
--- NOTE | 2016-04-25 09:02 | XR ---
EXAMINATION TYPE: XR chest 1V DATE OF EXAM: 04/25/2016 8:57 AM CLINICAL HISTORY: Difficulty breathing progress study. TECHNIQUE: Single AP portable semiupright view of the chest is obtained. COMPARISON: Chest x-ray from one day earlier FINDINGS: There is interval extubation with removal of endotracheal and orogastric tubes. There is w orsening central vascular congestion and perihilar edema. There is persistent cardiomegaly with ather osclerotic thoracic aorta. Osseous structures are intact. IMPRESSION: Interval extubation, there is redemonstration of cardiomegaly with worsening central vasc ular congestion and central perihilar edema consistent with worsening CHF exacerbation. Clinical oneyda elation advised.
[2016-04-25] MEDS ORDERED: FUROSEMIDE 10 MG/ML 4 ML VIAL IV STA (09:09)
[2016-04-25] MEDS ORDERED: predniSONE 1 MG TAB PO SCH (09:15)
[2016-04-25] MEDS ORDERED: SERTRALINE 100 MG TAB PO SCH (09:15)
[2016-04-25] MEDS ORDERED: HYDROcodone/APAP 5-325MG 1 EACH TAB PO SCH (09:15)
[2016-04-25] MEDS: GABAPENTIN 300 MG CAP PO SCH (09:49)
[2016-04-25] MEDS: SPIRONOLACTONE 25 MG TAB PO SCH (09:49)
[2016-04-25] MEDS: ASPIRIN 81 MG CHEW PO SCH (09:49)
[2016-04-25] MEDS: METOPROLOL TARTRATE 25 MG TAB PO SCH (09:49)
[2016-04-25] MEDS: amLODIPine 10 MG TAB PO SCH (09:49)
[2016-04-25] MEDS: LEVOTHYROXINE 100 MCG TAB PO SCH (09:50)
[2016-04-25] MEDS: LEVOTHYROXINE 75 MCG TAB PO SCH (09:50)
[2016-04-25] MEDS: LORazepam 2 MG/ML SYRINGE IV PRN ×2 (11:57→21:43)
[2016-04-25 12:20] LABS: Glucose,Whole Blood 91 mg/dL (75-99)
[2016-04-25 12:53] LABS: Magnesium 2.3 mg/dL (1.6-2.3); Potassium 3.4 mmol/L (3.5-5.1)
[2016-04-25] MEDS ORDERED: POTASSIUM CHLORIDE 20 MEQ, LIDOCAINE 2% INJ 20 MG in SODIUM CHLORIDE 0.9% 100 ML IVPB ONE (13:00)
--- NOTE | 2016-04-25 13:16 | P.PN ---
Subjective 75-year-old female patient with known history of chronic atrial fibrillation status post ablation procedure that was done at [facility], hypertension and hypertensive heart disease in addition to polymyalgia rheumatica/rheumatoid arthritis maintained on 4 mg of prednisone outpatient basis, chronic back pain, right rotator cuff injury, hypothyroidism, who presented yesterday to the emergency department after she was found to be in cardiac arrest Apparently, according to reported history, the patient's daughter was communicating with her over the phone when she acutely collapse. The daughter reports that she arrived to the scene within few minutes, 5 minutes max, and EMS came in to the scene and the patient was receiving CPR by the daughter during this time. The patient was placed on a monitor and she got defibrillated and subsequently there was return of spontaneous circulation. The exact downtime cannot be appropriately engaged however we think that she was on probably for around 10-15 minutes. She was intubated on the scene and the patient was moved to the emergency department first and then to the intensive care unit. CAT scan of the brain that was done in the burst department showed no acute abnormalities. CT of the chest showed no acute abnormality the patient had no evidence of pulmonary embolism. There was some haziness in the lung charles bilaterally consistent partly with some early CHF. Nevertheless no airspace disease or pulmonary infiltrates was noted. The patient also had a CAT scan of the abdomen and pelvis did came back within normal limits. Overnight the patient was kept intubated on mechanical ventilator. She was given Diprivan for sedation knowing that she was having some degree of agitation and asynchrony with a mechanical ventilator. At the time of my evaluation this morning, the patient was taken off Diprivan and she demonstrates spontaneous eye opening although her gaze was non-fixed and she was having rotational movements. Her pupils around 3-4 mm in size and they're reactive to light although sluggish. No hyperreflexia. No Babinski. At the later stage she started posturing. EEG was ordered. Carotid Doppler was ordered. Neurology consultation was ordered. No seizure activity has been noted. No further cardiac arrhythmias have been noted the patient's cardiac rhythm it's remained sinuses she arrived to the intensive care unit. She remained hemodynamically stable although there has been some fluctuation in her blood pressure. At times her systolic blood pressure without the low 90s and subsequently after holding her blood pressure medication she will shoot up to the 170s 190 systolic blood pressure. Urine output is adequate. No fever. No chills. No reported aspiration. Chest x-ray was clear. Urine output was adequate for the time being. I discussed the case with cardiology. I put the patient a combination of aspirin and IV heparin. I also put the patient on metoprolol 25 mg by mouth twice a day. Surgical Instrument Repair Specialist later stage decided to proceed with amiodarone treatment knowing that this could've been a cardiac arrest/V. tach/V. fib. The patient is currently being loaded with amiodarone in addition. No plans for any cardiac interventional radiology technologist that there is concern of an underlying mental status and possibility of hypoxic encephalopathy. She was also started on stress dose hydrocortisone knowing that she has been chronically maintained on prednisone on outpatient basis. EKG was shot showing any acute abnormalities and there is no ST segment elevation or depression. The troponins were positive and this is probably related defibrillation and CPR. On 04/23/2016 the patient is being seen in follow-up. Note that over the past 24 hours, the patient was taken off Diprivan and she was opening her eyes yet she was not following any commands. She would grimace to deep painful stimuli. There was obvious signs of hypoxic encephalopathy secondary to cardiac arrest. The EEG was limited due to muscle artifact. There was no obvious seizure activity noted. A repeat CAT scan was done around midnight and it showed no acute abnormalities. Overnight the patient became a bit more agitated and restless and she was thrashing around and developed some tachypnea tachycardia and hypertension. Based on that she had to be placed back on Diprivan drip which is currently running at 10 g per KG pigmented. Her condition has settled down since then. In terms of her cardiac status, the patient was noted to have prolongation of the QT interval. Cardiology recommended amiodarone which made her QT prolongation even worse and the patient had frequent ectopies and ultimately she had a short run of torsades, and polymorphic V. tach that was immediately defibrillated here in the ICU. The patient was given magnesium a total of 4 g and is magnesium level was brought up to 2.4. Then amiodarone drip was discontinued. I contacted the mail processing associate and I further discussions with Dr. Ayoub recommended beta mahogany treatment only. Since yesterday, the patient has not had any significant cardiac arrhythmias. His cardiac rhythm is sinus. Daily remains prolonged. Hemodynamically, no hypotension, urine output has dropped earlier this morning. Noted the patient has been resuscitated aggressively with IV fluids. We will try diuresis to improve the patient's urine output. On 04/24/2016 the patient is being seen in follow-up in the intensive care unit. The patient has improved significantly in terms of her neurologic functions. She was able to open up her eyes spontaneously, look around and follow some simple commands. She was able to follow commands such as squeezing my fingers blinking her eyes, etc. Hemodynamically she was stable. Her cardiac rhythm was sinus. No significant cardiac arrhythmias have been noted over the past 24 hours. The patient wasn't still on a mechanical ventilator on assist control mode and today's chest x-ray showed no significant signs of any fluid overload. There is some cardiomegaly and some mild pulmonary vascular congestion. The patient's urine output is improved significantly after she was given Lasix IV 40 mg every 12 hours. Fluid balance iis becoming negative for the next 24 hours. No seizure activity has been noted. Her neurologic exam is nonfocal. Based on all these positive findings, I was able to obtain some weaning parameters on this patient in the bedside and following that I gave the patient spelled his breathing trial with a pressure support of 5 and PEEP of 5 which she was able to tolerate without any major difficulties. 45 minutes into the trial, the patient had a blood gas that showed adequate oxygenation and ventilation and based on that I make the decision to extubate the patient. Postextubation, there was no stridor or any difficulties in treating the patient 's respiratory secretions. She remained hemodynamically stable. In fact her blood pressure was somewhat on the higher side and for that reason the patient was given IV hydralazine. She is also on beta blockers. No other antiarrhythmic medications for now. On 04/25/2016 the patient is being seen in follow-up in the intensive care unit. The patient is extubated. There has been obvious improvement in neurologic status however the patient is not completely back to her baseline yet. At times she is found to be confused. She is having some difficulty in swallowing today. She will have a bedside swallow evaluation. No agitation. She is able to recognize her daughter. She is able to hold conversation. She is not fully coherent. No seizure activity. Her cardiac rhythm remains normal sinus and frequent PACs and PVCs. There is some prolongation of the QT interval. No V. tach or V. fib's noted. No other malignant arrhythmias. The patient's electrodes have been ordered place. Chest x-ray from today shows a component of CHF and fluid overload and for that reason the patient will be given again Lasix. No respiratory distress. No fever. No chills. No seizure activity. No other complaints otherwise for now. Objective - Vital Signs Vital signs: Vital Signs Temp 98.7 F 04/25/16 12:00 Pulse 77 04/25/16 12:00 Resp 18 04/25/16 12:00 BP 105/83 04/25/16 12:00 Pulse Ox 95 04/25/16 12:00 Intake & Output 04/24/16 04/25/16 04/25/16 18:59 06:59 18:59 Intake Total 1367.997 880 280 Output Total 1762 416 600 Balance -394.003 464 -320 Weight 103.9 kg 108.7 kg Intake: Intake, IV Titration 847.997 880 280 Amount Heparin Sodium,Porcine/ 367.997 D5w Pmx 25,000 unit In Dextrose/Water 1 500ml. bag @ 9.95 UNITS/KG/HR 19 .99 mls/hr IV .Q24H [facility]AN Rx#:[id number] Magnesium Sulfate-D5w Pmx 200 1 gm In Dextrose/Water 1 100ml.bag @ 100 mls/hr IVPB Q1H MAGAN Rx#: [id number] Potassium Chloride 10 meq 200 Lidocaine 2% Inj 10 mg In Sodium Chloride 0.9% 100 ml @ 100 mls/hr IV Q1HR MAGAN Rx#:[id number] Sodium Chloride 0.9% 1, 480 480 280 000 ml @ 20 mls/hr IV . Q24H MAGAN Rx#:[id number] Oral 200 Tube Feeding 170 Other 150 Output: Gastric Drainage 300 Urine 1462 416 600 Other: Voiding Method Indwelling Catheter Indwelling Catheter Indwelling Catheter - Exam Head exam was generally normal. There was no scleral icterus or corneal arcus. Mucous membranes were moist.Neck was supple and without jugular venous distension, thyromegaly, or carotid bruits. Carotids were easily palpable bilaterally. There was no adenopathy.lung sounds are diminished in lung bases bilaterally along with some few scattered expiratory rhonchi.Cardiac exam revealed the PMI to be normally situated and sized. The rhythm was regular and no extrasystoles were noted during several minutes of auscultation. The first and second heart sounds were normal and physiologic splitting of the second heart sound was noted. There were no murmurs, rubs, clicks, or gallops.Abdominal exam revealed normal bowel sounds. The abdomen was soft, non- tender, and without masses, organomegaly, or appreciable enlargement of the abdominal aorta.Examination of the extremities revealed easily palpable radial, femoral and pedal pulses. There was no cyanosis, clubbing or edema. Neurologically the exam is nonfocal and the patient is following simple commands and she is able to hold short conversations. No Babinski. No clonus. - Labs CBC & Chem 7: 04/25/16 05:24 04/25/16 12:07 Labs: Abnormal Lab Results - Last 24 Hours (Table) 04/24/16 04/24/16 04/25/16 Range/Units 16:53 17:52 00:23 Neutrophils # (Manual) (1.3-7.7) k/uL Lymphocytes # (Manual) (1.0-4.8) k/uL Potassium 3.1 L (3.5-5.1) mmol/L Chloride (98-107) mmol/L BUN (7-17) mg/dL Glucose (74-99) mg/dL POC Glucose (mg/dL) 115 H 111 H (75-99) mg/dL Magnesium (1.6-2.3) mg/dL 04/25/16 04/25/16 04/25/16 Range/Units 00:28 05:24 05:24 Neutrophils # (Manual) 9.0 H (1.3-7.7) k/uL Lymphocytes # (Manual) 0.3 L (1.0-4.8) k/uL Potassium (3.5-5.1) mmol/L Chloride 113 H (98-107) mmol/L BUN 24 H (7-17) mg/dL Glucose 124 H (74-99) mg/dL POC Glucose (mg/dL) (75-99) mg/dL Magnesium 2.5 H 2.5 H (1.6-2.3) mg/dL 04/25/16 04/25/16 Range/Units 06:51 12:07 Neutrophils # (Manual) (1.3-7.7) k/uL Lymphocytes # (Manual) (1.0-4.8) k/uL Potassium 3.4 L (3.5-5.1) mmol/L Chloride (98-107) mmol/L BUN (7-17) mg/dL Glucose (74-99) mg/dL POC Glucose (mg/dL) 125 H (75-99) mg/dL Magnesium (1.6-2.3) mg/dL Microbiology - Last 24 Hours (Table) 04/22/16 00:30 Gram Stain - Final Sputum Sputum Culture - Final Assessment and Plan Plan: Assessment 1 acute cardiac arrest, most likely a cardiac arrhythmia related to either V. tach or V. fib. The patient was defibrillated on the scene with return of spontaneous circulation with an exact downtime estimated to be at least 10-15 minutes. Currently she is hemodynamic is stable. No further cardiac arrhythmias of been noted. EKG is within normal limits. Cardiac rhythm is sinus. Troponins are minimally elevated and this is probably secondary to CPR. On 04/23/2016 the patient is being seen in follow-up. The patient had prolongation of QT and developed a short run of a torsades while being on amiodarone. There is a was discontinued and the patient was kept only on beta mahogany. Because of cardiac arrest is suspected to be ventricular arrhythmia. on 04/24/2016 the patient is being seen in follow-up. QT interval is still somewhat prolonged however there is no evidence of any ventricular arrhythmias such as ventricular tachycardia or fibrillation or torsades. The patient is maintained on beta mahogany. Dr. Ayoub is seeing this patient. Catheterization will be given for later on EP studies and possible AICD placement. on 04/25/2016 the patient remains extubated. The patient has recovered from her acute cardiac arrest although she still having some arrhythmias in the form of PACs and PVCs are sometimes quite frequent. Her cardiac rhythm is sinus. No malignant arrhythmias have been noted. Dr. Ayoub is evaluating the patient. He told me that he would require this patient to have further improvement in her mentation to qualify for any further cardiac interventions including the possibility of an AICD placement. 2 acute respiratory failure secondary to above , recovered and the patient was weaned off the mechanical ventilator and extubated without any major difficulties.on today's chest x-ray there is a component of CHF and fluid overload and the patient will be given some diuretics. 3 hypoxic encephalopathy improving and the patient has developed significant neurologic recovery and the patient was weaned off the mechanical ventilator and extubated. On 04/25/2016 the patient is not fully coherent despite the massive improvement in neurologic functions and we will continue following up the patient's mentation here in the ICU. 4 chronic atrial fibrillation status post cardiac ablation and current rhythm is sinus. The patient was medicated with warfarin on outpatient basis and the PT/INR was subtherapeutic at a time of admission. On 04/25/2016, the patient remains in sinus rhythm. The patient was taken off the IV heparin and she was placed on Lovenox for DVT prophylaxis. Unable to take oral Coumadin yet. 5. Poly-myalgia rheumatica maintained on systemic steroids and the patient was taking 4 mg of prednisone on outpatient basis and currently she'll be placed on hydrocortisone stress dose 6 hypothyroidism 7 hyperlipidemia 8 previous history of CVA/TIA 9 chronic pain involving the back and the right shoulder as the patient has a component of rotator cuff. 10 preserved LV function with an echo Showing no acute abnormalities. In addition, the CAT scan of the chest abdomen and pelvis was nonrevealing 11 difficulty in swallowing Plan obtain a bedside swallow evaluation. PT evaluation. Hold off on oral pills which the patient is having difficulties in swallowing. Today Hydrocortisone to 50 Mg IV Every 8 Hours. Change the Lopressor to IV Form 2.5 Mg IV Push Every 6 Hours. Change the Thyroid Hormone to IV 100 g on a Daily Basis. Lovenox for DVT Prophylaxis. Rest of the Oral Medication Can Be Placed on Hold till the Patient Is Able to Appropriately Swallow. Monitor Mental Status. We' ll Keep the Patient ICU for Another 24 Hours for Further Monitoring.
--- NOTE | 2016-04-25 13:25 | PN ---
INTERVAL HISTORY: The patient currently is awake in bed but confused. daughter at the bedside who reassured me that the patient is much better, but her mental status is still a concern for her as she is not improving and is still confused. No major events reported by staff at the ICU. Patient is currently denying pain. PHYSICAL EXAMINATION: VITAL SIGNS: 98.2, 65, 19, 131/84, saturation is 97% on 2 L nasal cannula. LUNGS: Diminished bilaterally. HEART: Normal S1, S2. ABDOMEN: Soft, no tenderness, positive bowel sounds in all 4 quadrants. EXTREMITIES: Lower extremities no edema. PSYCH: Alert and awake only, but not oriented. SKIN: No new rash. IMAGING AND LABS: CBC revealed normal findings. Chem-7 revealed normal findings. Glucose is fluctuating between 111 and 125. Magnesium is 2.5. ASSESSMENT AND PLAN: 1. Acute hypoxic respiratory failure. 2. Recent cardiopulmonary arrest followed by cardioversion. 3. Chronic atrial fibrillation flutter. 4. Hypertension. 5. Hypothyroidism. 6. Hyperlipidemia. 7. Metabolic encephalopathy. PLAN: We will continue with current supportive care. We will continue with ICU setting and consider transferring patient to medical floor upon improvement. Patient is followed by cardiology to optimize her medical problem. Patient's daughter is aware and updated with the current treatment plan. Prognosis is still guarded.
--- NOTE | 2016-04-25 13:35 | P.PN ---
Subjective Principal diagnosis: Cardiac arrest This is a pleasant 75-year-old female patient who was admitted to the intensive care. After she had a cardiac arrest at home. The patient was talking to her daughter on the phone when she collapsed. The patient was found by her daughter who called 911 and started the CPR before she called 911. The patient was in V. fib where ACLS protocol was initiated. She was intubated and transferred to the hospital. Currently the patient is extubated. She is hemodynamically stable. She underwent an echocardiogram which showed normal LV function with apical cardiomyopathy. The patient was seen and evaluated by Dr. Baez who recommended proceeding with defibrillator in the next few days. The EKG showed sinus rhythm with prolonged QT intervals. Objective - Vital Signs Vital signs: Vital Signs Temp 98.7 F 04/25/16 12:00 Pulse 77 04/25/16 12:00 Resp 18 04/25/16 12:00 BP 105/83 04/25/16 12:00 Pulse Ox 95 04/25/16 12:00 Intake & Output 04/24/16 04/25/16 04/25/16 18:59 06:59 18:59 Intake Total 1367.997 880 280 Output Total 1762 416 600 Balance -394.003 464 -320 Weight 103.9 kg 108.7 kg Intake: Intake, IV Titration 847.997 880 280 Amount Heparin Sodium,Porcine/ 367.997 D5w Pmx 25,000 unit In Dextrose/Water 1 500ml. bag @ 9.95 UNITS/KG/HR 19 .99 mls/hr IV .Q24H [facility] Rx#:[id number] Magnesium Sulfate-D5w Pmx 200 1 gm In Dextrose/Water 1 100ml.bag @ 100 mls/hr IVPB Q1H [facility] Rx#: [id number] Potassium Chloride 10 meq 200 Lidocaine 2% Inj 10 mg In Sodium Chloride 0.9% 100 ml @ 100 mls/hr IV Q1HR [facility] Rx#:[id number] Sodium Chloride 0.9% 1, 480 480 280 000 ml @ 20 mls/hr IV . Q24H [facility] Rx#:[id number] Oral 200 Tube Feeding 170 Other 150 Output: Gastric Drainage 300 Urine 1462 416 600 Other: Voiding Method Indwelling Catheter Indwelling Catheter Indwelling Catheter - Constitutional General appearance: Present: no acute distress - Respiratory Respiratory: bilateral: CTA - Cardiovascular Rhythm: regular - Labs CBC & Chem 7: 04/25/16 05:24 04/25/16 12:07 Labs: Abnormal Lab Results - Last 24 Hours (Table) 04/24/16 04/24/16 04/25/16 Range/Units 16:53 17:52 00:23 Neutrophils # (Manual) (1.3-7.7) k/uL Lymphocytes # (Manual) (1.0-4.8) k/uL Potassium 3.1 L (3.5-5.1) mmol/L Chloride (98-107) mmol/L BUN (7-17) mg/dL Glucose (74-99) mg/dL POC Glucose (mg/dL) 115 H 111 H (75-99) mg/dL Magnesium (1.6-2.3) mg/dL 04/25/16 04/25/16 04/25/16 Range/Units 00:28 05:24 05:24 Neutrophils # (Manual) 9.0 H (1.3-7.7) k/uL Lymphocytes # (Manual) 0.3 L (1.0-4.8) k/uL Potassium (3.5-5.1) mmol/L Chloride 113 H (98-107) mmol/L BUN 24 H (7-17) mg/dL Glucose 124 H (74-99) mg/dL POC Glucose (mg/dL) (75-99) mg/dL Magnesium 2.5 H 2.5 H (1.6-2.3) mg/dL 04/25/16 04/25/16 Range/Units 06:51 12:07 Neutrophils # (Manual) (1.3-7.7) k/uL Lymphocytes # (Manual) (1.0-4.8) k/uL Potassium 3.4 L (3.5-5.1) mmol/L Chloride (98-107) mmol/L BUN (7-17) mg/dL Glucose (74-99) mg/dL POC Glucose (mg/dL) 125 H (75-99) mg/dL Magnesium (1.6-2.3) mg/dL Assessment and Plan Plan: Assessment #1 status post cardiac arrest #2 atypical hypertrophy #3 prolonged QT interval Plan #1 avoid any electrolytes imbalance #2 avoid any medication can cause prolonged QT #3 plan for AICD in the next few days
[2016-04-25] MEDS: METOPROLOL TARTRATE 5 MG/5 ML VIAL IVP SCH (17:14)
[2016-04-25 17:57] LABS: Glucose,Whole Blood 109 mg/dL (75-99)
[2016-04-25] MEDS ORDERED: WARFARIN 7.5 MG TAB PO SCH (18:00)
--- NOTE | 2016-04-25 19:54 | P.PN ---
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 Patient has an approximate known downtime of 5 minutes before CPR was initiated and an unknown duration between CPR initiation EMS arrival and advanced cardiac life support measures started. EEG was conducted but was quite limited due to the frequency of movement and muscle artifact. EEG results were positive for moderate encephalopathy The patient was not as alert as yesterday, intermittently follows commands, sporadic movement noted to left upper extremity, noted expressive aphasia with word selection, On contact, the patient was supine in bed with family members at the bedside, in no acute distress. Patient has noted difficulty with memory and recall. Family was present in the room, patient was in no acute distress resting in bed. Objective - Vital Signs Vital signs: Vital Signs Temp 98.6 F 04/25/16 16:00 Pulse 75 04/25/16 19:00 Resp 18 04/25/16 19:00 BP 123/86 04/25/16 19:00 Pulse Ox 94 L 04/25/16 19:00 Intake & Output 04/25/16 04/25/16 04/26/16 06:59 18:59 06:59 Intake Total 880 560 20 Output Total 416 1125 30 Balance 464 -565 -10 Weight 108.7 kg Intake: Intake, IV Titration 880 560 20 Amount Magnesium Sulfate-D5w Pmx 200 1 gm In Dextrose/Water 1 100ml.bag @ 100 mls/hr IVPB Q1H [facility] Rx#: [id number] Potassium Chloride 10 meq 200 100 Lidocaine 2% Inj 10 mg In Sodium Chloride 0.9% 100 ml @ 100 mls/hr IV Q1HR [facility] Rx#:[id number] Sodium Chloride 0.9% 1, 480 460 20 000 ml @ 20 mls/hr IV . Q24H [facility] Rx#:[id number] Output: Urine 416 1125 30 Other: Voiding Method Indwelling Catheter Indwelling Catheter - Exam Constitutional: AOx1, responsive and interactive. Head: NC/AT Throat: Supple, no masses Respiratory: No increased work of breathing Cardiac: Regular rate and Rhythm GI: non tender, non distended Musculoskeletal: Director Supply strengths are equal bilaterally 4/5, Lower extremity strengths are equal bilaterally at 4/5. Neurological: CN II-XII in tact, patient is responsive to most stimuli, responds to verbal stimuli. Patient will speak. Reflexes are equal both UE and LE. PERRL, understands commands sporatically, remote memory intact, recent memory is impaired. Cognitive recall is difficult. Brainstem reflexes are intact including corneal reflex, oculocephalic reflex, pupillary reflex. Plantar reflex present bilaterally. . No seizure-like activity is seen. No obvious facial asymmetry. No unilateralizing weakness. Integementary: no rash, no erythema - Labs CBC & Chem 7: 04/25/16 05:24 04/25/16 12:07 Labs: Abnormal Lab Results - Last 24 Hours (Table) 04/25/16 04/25/16 04/25/16 Range/Units 00:23 00:28 05:24 Neutrophils # (Manual) 9.0 H (1.3-7.7) k/uL Lymphocytes # (Manual) 0.3 L (1.0-4.8) k/uL Potassium (3.5-5.1) mmol/L Chloride (98-107) mmol/L BUN (7-17) mg/dL Glucose (74-99) mg/dL POC Glucose (mg/dL) 111 H (75-99) mg/dL Magnesium 2.5 H (1.6-2.3) mg/dL 04/25/16 04/25/16 04/25/16 Range/Units 05:24 06:51 12:07 Neutrophils # (Manual) (1.3-7.7) k/uL Lymphocytes # (Manual) (1.0-4.8) k/uL Potassium 3.4 L (3.5-5.1) mmol/L Chloride 113 H (98-107) mmol/L BUN 24 H (7-17) mg/dL Glucose 124 H (74-99) mg/dL POC Glucose (mg/dL) 125 H (75-99) mg/dL Magnesium 2.5 H (1.6-2.3) mg/dL 04/25/16 Range/Units 17:55 Neutrophils # (Manual) (1.3-7.7) k/uL Lymphocytes # (Manual) (1.0-4.8) k/uL Potassium (3.5-5.1) mmol/L Chloride (98-107) mmol/L BUN (7-17) mg/dL Glucose (74-99) mg/dL POC Glucose (mg/dL) 109 H (75-99) mg/dL Magnesium (1.6-2.3) mg/dL Assessment and Plan (1) Cardiac arrest Status: Acute (2) Cardiopulmonary arrest Status: Acute (3) Encephalopathy Status: Acute Plan: 1. Encephalopathy: Patient is status post cardiac arrest with return of spontaneous circulation. Patient is status post extubation for greater than 24 hours, she is alert and oriented to her name. ` Neurology will clear the patient. Follow-up in 2-4 weeks in the office. Continue: Aspirin at existing dose and frequency Lipitor at existing dose and frequency Status: cleared by neurology. I discussed the patient's pertinent medical information with Dr. Doan. He agrees with the plan of care as implemented.
[2016-04-25] MEDS: SODIUM CHLORIDE 0.9% 1,000 ML IV SCH (22:10)
[2016-04-26] MEDS: METOPROLOL TARTRATE 5 MG/5 ML VIAL IVP SCH ×3 (01:22→11:36)
[2016-04-26] MEDS: HYDROCORTISONE SUCCINATE 100 MG/2 ML VIAL IV SCH ×3 (01:22→16:35)
[2016-04-26] MEDS: NITROGLYCERIN OINT 1 INCH/GM PACKET TOPICAL SCH ×3 (01:22→11:36)
[2016-04-26] MEDS: INSULIN LISPRO (humaLOG) 300 UNIT/3 ML VIAL SQ SCH ×3 (01:27→13:24)
[2016-04-26 01:29] LABS: Glucose,Whole Blood 101 mg/dL (75-99)
[2016-04-26] MEDS: HYDROmorphone 1 MG/ML 1 ML SYRINGE IVP PRN ×3 (02:44→14:51)
[2016-04-26 05:18] LABS: Anion Gap 11 mmol/L; Blood Urea Nitrogen 27 mg/dL (7-17); Calcium 8.9 mg/dL (8.4-10.2); Carbon Dioxide 21 mmol/L (22-30); Chloride 114 mmol/L (98-107); Glucose 127 mg/dL (74-99); Magnesium 2.1 mg/dL (1.6-2.3); Non-African American GFR(MDRD) >60 (>60 ml/min/1.73 sqM); Phosphorous 3.6 mg/dL (2.5-4.5); Potassium 4.3 mmol/L (3.5-5.1); Sodium 146 mmol/L (137-145)
[2016-04-26 05:20] LABS: INR 1.2 (<1.1); Prothrombin Time 11.9 sec (9.0-12.0)
[2016-04-26 05:34] LABS: Aty Lym Flag Moderate; CH 29.9; CHCM 31.8; HCT 38.1 % (34.0-46.0); HDW 2.45; MCH 29.9 pg (25.0-35.0); MCHC 31.6 g/dL (31.0-37.0); MCV 94.5 fL (80.0-100.0); Mean Platelet Volume 7.8; RBC 4.03 m/uL (3.80-5.40); RDW 14.1 % (11.5-15.5); WBC 11.1 k/uL (3.8-10.6)
[2016-04-26] MEDS: KETOROLAC 30 MG/ML 1 ML VIAL IVP PRN ×2 (05:47→11:35)
[2016-04-26 06:23] LABS: Glucose,Whole Blood 123 mg/dL (75-99)
[2016-04-26 07:16] LABS: Add Differential Manual Differential
[2016-04-26 07:19] LABS: Nucleated Red Blood Cells 0 /100 WBC (0-0); Total Cells Counted 100
[2016-04-26 07:21] LABS: Manual Review Performed
--- NOTE | 2016-04-26 07:46 | XR ---
EXAMINATION TYPE: XR chest 1V portable DATE OF EXAM: 04/26/2016 6:31 AM COMPARISON: Prior chest x-ray 25 April 2016 HISTORY: Shortness of breath TECHNIQUE: Single frontal view of the chest is obtained. FINDINGS: Similar findings, bilateral airspace disease, interstitial changes again noted, the heart is enlarged. No evident pneumothorax. There are overlying cardiac leads. IMPRESSION: Correlate for congestive heart failure, pneumonia, rotated exam. Follow-up is suggested.
[2016-04-26] MEDS: PANTOPRAZOLE 40 MG/10 ML VIAL IV SCH (07:57)
[2016-04-26] MEDS: ENOXAPARIN 40 MG/0.4 ML SYRINGE SQ SCH (07:58)
[2016-04-26] MEDS ORDERED: LEVOTHYROXINE IVP 100 MCG/5 ML VIAL IV SCH (09:00)
[2016-04-26] MEDS ORDERED: FUROSEMIDE 10 MG/ML 2 ML VIAL IV SCH (09:15)
[2016-04-26] MEDS: PIPERACILLIN-TAZOBACTAM 3.375 GM in DEXTROSE/WATER 1 50ML.BAG IVPB SCH ×2 (10:41→16:36)
--- NOTE | 2016-04-26 13:14 | P.PN ---
Subjective 75-year-old female patient with known history of chronic atrial fibrillation status post ablation procedure that was done at [facility], hypertension and hypertensive heart disease in addition to polymyalgia rheumatica/rheumatoid arthritis maintained on 4 mg of prednisone outpatient basis, chronic back pain, right rotator cuff injury, hypothyroidism, who presented yesterday to the emergency department after she was found to be in cardiac arrest Apparently, according to reported history, the patient's daughter was communicating with her over the phone when she acutely collapse. The daughter reports that she arrived to the scene within few minutes, 5 minutes max, and EMS came in to the scene and the patient was receiving CPR by the daughter during this time. The patient was placed on a monitor and she got defibrillated and subsequently there was return of spontaneous circulation. The exact downtime cannot be appropriately engaged however we think that she was on probably for around 10-15 minutes. She was intubated on the scene and the patient was moved to the emergency department first and then to the intensive care unit. CAT scan of the brain that was done in the burst department showed no acute abnormalities. CT of the chest showed no acute abnormality the patient had no evidence of pulmonary embolism. There was some haziness in the lung charles bilaterally consistent partly with some early CHF. Nevertheless no airspace disease or pulmonary infiltrates was noted. The patient also had a CAT scan of the abdomen and pelvis did came back within normal limits. Overnight the patient was kept intubated on mechanical ventilator. She was given Diprivan for sedation knowing that she was having some degree of agitation and asynchrony with a mechanical ventilator. At the time of my evaluation this morning, the patient was taken off Diprivan and she demonstrates spontaneous eye opening although her gaze was non-fixed and she was having rotational movements. Her pupils around 3-4 mm in size and they're reactive to light although sluggish. No hyperreflexia. No Babinski. At the later stage she started posturing. EEG was ordered. Carotid Doppler was ordered. Neurology consultation was ordered. No seizure activity has been noted. No further cardiac arrhythmias have been noted the patient's cardiac rhythm it's remained sinuses she arrived to the intensive care unit. She remained hemodynamically stable although there has been some fluctuation in her blood pressure. At times her systolic blood pressure without the low 90s and subsequently after holding her blood pressure medication she will shoot up to the 170s 190 systolic blood pressure. Urine output is adequate. No fever. No chills. No reported aspiration. Chest x-ray was clear. Urine output was adequate for the time being. I discussed the case with cardiology. I put the patient a combination of aspirin and IV heparin. I also put the patient on metoprolol 25 mg by mouth twice a day. Cinder Crane Operator later stage decided to proceed with amiodarone treatment knowing that this could've been a cardiac arrest/V. tach/V. fib. The patient is currently being loaded with amiodarone in addition. No plans for any cardiac field service specialist that there is concern of an underlying mental status and possibility of hypoxic encephalopathy. She was also started on stress dose hydrocortisone knowing that she has been chronically maintained on prednisone on outpatient basis. EKG was shot showing any acute abnormalities and there is no ST segment elevation or depression. The troponins were positive and this is probably related defibrillation and CPR. On 04/23/2016 the patient is being seen in follow-up. Note that over the past 24 hours, the patient was taken off Diprivan and she was opening her eyes yet she was not following any commands. She would grimace to deep painful stimuli. There was obvious signs of hypoxic encephalopathy secondary to cardiac arrest. The EEG was limited due to muscle artifact. There was no obvious seizure activity noted. A repeat CAT scan was done around midnight and it showed no acute abnormalities. Overnight the patient became a bit more agitated and restless and she was thrashing around and developed some tachypnea tachycardia and hypertension. Based on that she had to be placed back on Diprivan drip which is currently running at 10 g per KG pigmented. Her condition has settled down since then. In terms of her cardiac status, the patient was noted to have prolongation of the QT interval. Cardiology recommended amiodarone which made her QT prolongation even worse and the patient had frequent ectopies and ultimately she had a short run of torsades, and polymorphic V. tach that was immediately defibrillated here in the ICU. The patient was given magnesium a total of 4 g and is magnesium level was brought up to 2.4. Then amiodarone drip was discontinued. I contacted the animal shelter clerk and I further discussions with Dr. Ayoub recommended beta mahogany treatment only. Since yesterday, the patient has not had any significant cardiac arrhythmias. His cardiac rhythm is sinus. Daily remains prolonged. Hemodynamically, no hypotension, urine output has dropped earlier this morning. Noted the patient has been resuscitated aggressively with IV fluids. We will try diuresis to improve the patient's urine output. On 04/24/2016 the patient is being seen in follow-up in the intensive care unit. The patient has improved significantly in terms of her neurologic functions. She was able to open up her eyes spontaneously, look around and follow some simple commands. She was able to follow commands such as squeezing my fingers blinking her eyes, etc. Hemodynamically she was stable. Her cardiac rhythm was sinus. No significant cardiac arrhythmias have been noted over the past 24 hours. The patient wasn't still on a mechanical ventilator on assist control mode and today's chest x-ray showed no significant signs of any fluid overload. There is some cardiomegaly and some mild pulmonary vascular congestion. The patient's urine output is improved significantly after she was given Lasix IV 40 mg every 12 hours. Fluid balance iis becoming negative for the next 24 hours. No seizure activity has been noted. Her neurologic exam is nonfocal. Based on all these positive findings, I was able to obtain some weaning parameters on this patient in the bedside and following that I gave the patient spelled his breathing trial with a pressure support of 5 and PEEP of 5 which she was able to tolerate without any major difficulties. 45 minutes into the trial, the patient had a blood gas that showed adequate oxygenation and ventilation and based on that I make the decision to extubate the patient. Postextubation, there was no stridor or any difficulties in treating the patient 's respiratory secretions. She remained hemodynamically stable. In fact her blood pressure was somewhat on the higher side and for that reason the patient was given IV hydralazine. She is also on beta blockers. No other antiarrhythmic medications for now. On 04/25/2016 the patient is being seen in follow-up in the intensive care unit. The patient is extubated. There has been obvious improvement in neurologic status however the patient is not completely back to her baseline yet. At times she is found to be confused. She is having some difficulty in swallowing today. She will have a bedside swallow evaluation. No agitation. She is able to recognize her daughter. She is able to hold conversation. She is not fully coherent. No seizure activity. Her cardiac rhythm remains normal sinus and frequent PACs and PVCs. There is some prolongation of the QT interval. No V. tach or V. fib's noted. No other malignant arrhythmias. The patient's electrodes have been ordered place. Chest x-ray from today shows a component of CHF and fluid overload and for that reason the patient will be given again Lasix. No respiratory distress. No fever. No chills. No seizure activity. No other complaints otherwise for now. On 04/26/2016, the patient is doing poorly. After some limited recovery in the patient's neurological functions, the patient failed to show further progress. She remains confused. She was unable to recognize her daughter today and she becomes very restless and agitated. She is unable to hold a conversation. The family is recognize that. This is typical of post anoxic/hypoxic encephalopathy. Meanwhile, the patient is also developing diffuse breath and poorly infiltrates which I thought is related to a component of fluid overload and CHF. I give her IV Lasix and I'm going to give her more Lasix today knowing that her chest x-ray from today has not shown any major difference or changes compared to the earlier chest x-ray. Her cardiac rhythm remains sinus with a prolongation of QT interval. She is having frequent PACs and PVCs still. No V. tach. No V. fib's. No hypotension. No fever. Aspiration pneumonia is within the differential diagnosis and for that reason it's reasonable to cover this patient with antibiotics. We are monitoring her neurologic function very closely. Overnight she had required to take some Dilaudid and Ativan to control her agitation. Would avoiding any medication that can cause potential prolongation of the QT interval. Objective - Vital Signs Vital signs: Vital Signs Temp 97.7 F 04/26/16 12:00 Pulse 76 04/26/16 12:00 Resp 17 04/26/16 12:00 BP 119/87 04/26/16 12:00 Pulse Ox 95 04/26/16 12:00 Intake & Output 04/25/16 04/26/16 04/26/16 18:59 06:59 18:59 Intake Total 560 440 157.5 Output Total 1125 628 562 Balance -565 -188 -404.5 Weight 103.3 kg Intake: Intake, IV Titration 560 440 157.5 Amount Piperacillin-Tazobactam 3 37.5 .375 gm In Dextrose/Water 1 50ml.bag @ 12.5 mls/hr IVPB Q8HR MAGAN Rx#: [id number] Potassium Chloride 10 meq 100 Lidocaine 2% Inj 10 mg In Sodium Chloride 0.9% 100 ml @ 100 mls/hr IV Q1HR MAGAN Rx#:[id number] Potassium Chloride 10 meq 200 Lidocaine 2% Inj 10 mg In Sodium Chloride 0.9% 100 ml @ 100 mls/hr IV Q1HR MAGAN Rx#:[id number] Sodium Chloride 0.9% 1, 460 240 120 000 ml @ 20 mls/hr IV . Q24H MAGAN Rx#:[id number] Output: Urine 1125 628 562 Other: Voiding Method Indwelling Catheter Indwelling Catheter Indwelling Catheter - Exam Head exam was generally normal. There was no scleral icterus or corneal arcus. Mucous membranes were moist.Neck was supple and without jugular venous distension, thyromegaly, or carotid bruits. Carotids were easily palpable bilaterally. There was no adenopathy. lung sounds are diminished in lung bases bilaterally along with some few scattered expiratory rhonchi. Cardiac exam revealed the PMI to be normally situated and sized. The rhythm was regular and no extrasystoles were noted during several minutes of auscultation. The first and second heart sounds were normal and physiologic splitting of the second heart sound was noted. There were no murmurs, rubs, clicks, or gallops.Abdominal exam revealed normal bowel sounds. The abdomen was soft, non- tender, and without masses, organomegaly, or appreciable enlargement of the abdominal aorta.Examination of the extremities revealed easily palpable radial, femoral and pedal pulses. There was no cyanosis, clubbing or edema. Neurologically the exam is nonfocal and the patient is confused and this point, unable to hold a conversation. - Labs CBC & Chem 7: 04/26/16 04:53 04/26/16 04:53 Labs: Abnormal Lab Results - Last 24 Hours (Table) 04/25/16 04/25/16 04/26/16 Range/Units 12:07 17:55 01:26 WBC (3.8-10.6) k/uL Neutrophils # (Manual) (1.3-7.7) k/uL Lymphocytes # (Manual) (1.0-4.8) k/uL Sodium (137-145) mmol/L Potassium 3.4 L (3.5-5.1) mmol/L Chloride (98-107) mmol/L Carbon Dioxide (22-30) mmol/L BUN (7-17) mg/dL Glucose (74-99) mg/dL POC Glucose (mg/dL) 109 H 101 H (75-99) mg/dL 04/26/16 04/26/16 04/26/16 Range/Units 04:53 04:53 06:21 WBC 11.1 H (3.8-10.6) k/uL Neutrophils # (Manual) 10.2 H (1.3-7.7) k/uL Lymphocytes # (Manual) 0.7 L (1.0-4.8) k/uL Sodium 146 H (137-145) mmol/L Potassium (3.5-5.1) mmol/L Chloride 114 H (98-107) mmol/L Carbon Dioxide 21 L (22-30) mmol/L BUN 27 H (7-17) mg/dL Glucose 127 H (74-99) mg/dL POC Glucose (mg/dL) 123 H (75-99) mg/dL Assessment and Plan Plan: Assessment 1 acute cardiac arrest, most likely a cardiac arrhythmia related to either V. tach or V. fib. The patient was defibrillated on the scene with return of spontaneous circulation with an exact downtime estimated to be at least 10-15 minutes. Currently she is hemodynamic is stable. No further cardiac arrhythmias of been noted. EKG is within normal limits. Cardiac rhythm is sinus. Troponins are minimally elevated and this is probably secondary to CPR. On 04/23/2016 the patient is being seen in follow-up. The patient had prolongation of QT and developed a short run of a torsades while being on amiodarone. There is a was discontinued and the patient was kept only on beta mahogany. Because of cardiac arrest is suspected to be ventricular arrhythmia. on 04/24/2016 the patient is being seen in follow-up. QT interval is still somewhat prolonged however there is no evidence of any ventricular arrhythmias such as ventricular tachycardia or fibrillation or torsades. The patient is maintained on beta mahogany. Dr. Ayoub is seeing this patient. Catheterization will be given for later on EP studies and possible AICD placement. on 04/25/2016 the patient remains extubated. The patient has recovered from her acute cardiac arrest although she still having some arrhythmias in the form of PACs and PVCs are sometimes quite frequent. Her cardiac rhythm is sinus. No malignant arrhythmias have been noted. Dr. Ayoub is evaluating the patient. He told me that he would require this patient to have further improvement in her mentation to qualify for any further cardiac interventions including the possibility of an AICD placement. On 04/26/2016, the patient remains extubated, hemodynamically stable without any major arrhythmias. 2 acute respiratory failure secondary to above , recovered and the patient was weaned off the mechanical ventilator and extubated without any major difficulties.on today's chest x-ray there is a component of CHF and fluid overload and the patient will be given some diuretics. On 04/26/2016, the patient's chest x-ray remains unchanged and she will benefit from additional diuresis. The possibility of an aspiration pneumonia is being entertained and for that reason the patient was placed on empiric antibiotic coverage with IV Zosyn. Repeat chest x-ray in a.m. 3 hypoxic encephalopathy improving and the patient has developed significant neurologic recovery and the patient was weaned off the mechanical ventilator and extubated. On 04/25/2016 the patient is not fully coherent despite the massive improvement in neurologic functions and we will continue following up the patient's mentation here in the ICU. 4 chronic atrial fibrillation status post cardiac ablation and current rhythm is sinus. 5. Poly-myalgia rheumatica maintained on systemic steroids and the patient was taking 4 mg of prednisone on outpatient basis and currently she'll be placed on hydrocortisone stress dose 6 hypothyroidism 7 hyperlipidemia 8 previous history of CVA/TIA 9 chronic pain involving the back and the right shoulder as the patient has a component of rotator cuff. 10 preserved LV function with an echo Showing no acute abnormalities. In addition, the CAT scan of the chest abdomen and pelvis was nonrevealing 11 difficulty in swallowing Plan The patient continues to have signs of anoxic/hypoxic encephalopathy. Neurologically, he has not been completed. Speech is often the patient is unable to swallow. As such we'll continue monitoring her neurological outcomes. Give the patient IV Lasix 20 mg every 12 hours., The patient IV Zosyn for any possible aspiration pneumonia. Repeat chest x-ray in the morning. Neurology to monitor this patient. No plans for an AICD placement specially the patient has not had full neurologic recovery.
[2016-04-26 13:19] LABS: Glucose,Whole Blood 120 mg/dL (75-99)
--- NOTE | 2016-04-26 13:36 | P.PN ---
Subjective Principal diagnosis: Cardiac arrest This is a pleasant 75-year-old female patient who was admitted to the intensive care. After she had a cardiac arrest at home. The patient was talking to her daughter on the phone when she collapsed. The patient was found by her daughter who called 911 and started the CPR before she called 911. The patient was in V. fib where ACLS protocol was initiated. She was intubated and transferred to the hospital. Currently the patient is extubated. She is hemodynamically stable. She underwent an echocardiogram which showed normal LV function with apical cardiomyopathy. The patient was seen and evaluated by Dr. Baez who recommended proceeding with defibrillator in the next few days. The EKG showed sinus rhythm with prolonged QT intervals. I had a long discussion with the family. 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 She was seen and evaluated by the neurology service. The daughter wants the patient to be DO NOT RESUSCITATE at this point of time and they are thinking about going hospice. Objective - Vital Signs Vital signs: Vital Signs Temp 97.7 F 04/26/16 12:00 Pulse 65 04/26/16 13:00 Resp 16 04/26/16 13:00 BP 127/90 04/26/16 13:00 Pulse Ox 95 04/26/16 13:00 Intake & Output 04/25/16 04/26/16 04/26/16 18:59 06:59 18:59 Intake Total 560 440 190.0 Output Total 1125 628 862 Balance -565 -188 -672.0 Weight 103.3 kg Intake: Intake, IV Titration 560 440 190.0 Amount Piperacillin-Tazobactam 3 50.0 .375 gm In Dextrose/Water 1 50ml.bag @ 12.5 mls/hr IVPB Q8HR MAGAN Rx#: [id number] Potassium Chloride 10 meq 100 Lidocaine 2% Inj 10 mg In Sodium Chloride 0.9% 100 ml @ 100 mls/hr IV Q1HR MAGAN Rx#:[id number] Potassium Chloride 10 meq 200 Lidocaine 2% Inj 10 mg In Sodium Chloride 0.9% 100 ml @ 100 mls/hr IV Q1HR MAGAN Rx#:[id number] Sodium Chloride 0.9% 1, 460 240 140 000 ml @ 20 mls/hr IV . Q24H MAGAN Rx#:[id number] Output: Urine 1125 628 862 Other: Voiding Method Indwelling Catheter Indwelling Catheter Indwelling Catheter - Labs CBC & Chem 7: 04/26/16 04:53 04/26/16 04:53 Labs: Abnormal Lab Results - Last 24 Hours (Table) 04/25/16 04/26/16 04/26/16 Range/Units 17:55 01:26 04:53 WBC 11.1 H (3.8-10.6) k/uL Neutrophils # (Manual) 10.2 H (1.3-7.7) k/uL Lymphocytes # (Manual) 0.7 L (1.0-4.8) k/uL Sodium (137-145) mmol/L Chloride (98-107) mmol/L Carbon Dioxide (22-30) mmol/L BUN (7-17) mg/dL Glucose (74-99) mg/dL POC Glucose (mg/dL) 109 H 101 H (75-99) mg/dL 04/26/16 04/26/16 04/26/16 Range/Units 04:53 06:21 13:17 WBC (3.8-10.6) k/uL Neutrophils # (Manual) (1.3-7.7) k/uL Lymphocytes # (Manual) (1.0-4.8) k/uL Sodium 146 H (137-145) mmol/L Chloride 114 H (98-107) mmol/L Carbon Dioxide 21 L (22-30) mmol/L BUN 27 H (7-17) mg/dL Glucose 127 H (74-99) mg/dL POC Glucose (mg/dL) 123 H 120 H (75-99) mg/dL Assessment and Plan Plan: Assessment #1 status post cardiac arrest #2 atypical hypertrophy #3 prolonged QT interval Plan #1 avoid any electrolytes imbalance #2 avoid any medication can cause prolonged QT #3 follow-up with the patient
[2016-04-26 16:15] VITALS: BP 105/74; PULSE 77; RESP 15; TEMP 99.1
[2016-04-26] MEDS ORDERED: MORPHINE SULFATE 100 MG in SODIUM CHLORIDE 0.9% 100 ML IV SCH (17:00)
[2016-04-26] MEDS ORDERED: MORPHINE SULFATE 4 MG/ML SYRINGE IVP PRN (17:18)
--- NOTE | 2016-04-26 17:24 | PN ---
INTERVAL HISTORY: Patient continues to be hemodynamically stable. No major events reported overnight, but no improvement of mental status, where patient opens her eyes, answers questions, but not appropriately, and seems to be still at the same baseline level. 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 Cardiology evaluated the patient and said that the patient was not candidate for AICD at this point due to her mental status and poor outcome. PHYSICAL EXAMINATION: VITAL SIGNS: 97.9, 81, 21, 114/76, saturation 93% on 6L nasal cannula. LUNGS: Diminished bilaterally. HEART: Normal S1, S2. ABDOMEN: Soft. No tenderness. Positive bowel sounds in all 4 quadrants. LOWER EXTREMITIES: No edema. Dominguez catheter in place with dark urine. PSYCH: As above. SKIN: No new rash. IMAGING AND LABS: CBC revealed 11.1 white blood count, normal otherwise. PT, INR within normal limit. Chem-7 revealed slightly elevated sodium at 146, normal creatinine, elevated BUN at 27, glucose under fair control. ASSESSMENT AND PLAN: 1. Cardiac arrest. 2. Acute on chronic respiratory failure with hypoxia and hypercapnia. 3. Encephalopathy, likely hypoxemic and hypercapnic. 4. Chronic atrial fibrillation, status post cardiac ablation, currently in sinus rhythm. 5. Polymyalgia rheumatica. 6. Hypothyroidism. 7. Hyperlipidemia. 8. Hypertension. PLAN: I had discussion with the nursing staff and Dr. Mccormack this morning regarding the care of this patient and we would like to continue following up with the family regarding treatment plan. Patient currently can be followed by Cardiology and place the AICD on hold until we have further discussion with the patient and her family regarding her care and given the poor prognosis, we will follow up with family request.
[2016-04-26] MEDS ORDERED: WARFARIN 5 MG TAB PO SCH (18:00)
== END 2016-04-26 18:59 | disposition hospice, inpatient (51) | DRG 280 ==
LOC: EC 20:32 → 6ICU 22:42 → UNDODISIN 04-26 18:49
PROVIDERS: ADMIT Internal Medicine; ATTEND Internal Medicine
PROC: 5A1945Z Respiratory Ventilation, 24-96 Consecutive Hours (ICD-10-PCS; principal; 2016-04-21)
PROC: 0DH67UZ Insertion of Feeding Device into Stomach, Via Natural or Artificial Opening (ICD-10-PCS; 2016-04-21)
PROC: 0BH17EZ Insertion of Endotracheal Airway into Trachea, Via Natural or Artificial Opening (ICD-10-PCS; 2016-04-21)
PROC: 0T9B70Z Drainage of Bladder with Drainage Device, Via Natural or Artificial Opening (ICD-10-PCS; 2016-04-21)
PROC: 3E0G76Z Introduction of Nutritional Substance into Upper GI, Via Natural or Artificial Opening (ICD-10-PCS; 2016-04-23)
DX: I21.4 Non-ST elevation (NSTEMI) myocardial infarction (principal); J96.21 Acute and chronic respiratory failure with hypoxia; I49.01 Ventricular fibrillation; G93.41 Metabolic encephalopathy; G93.1 Anoxic brain damage, not elsewhere classified; Z99.11 Dependence on respirator [ventilator] status; R13.10 Dysphagia, unspecified; I48.92 Unspecified atrial flutter; I48.2 Chronic atrial fibrillation; R47.01 Aphasia; J96.22 Acute and chronic respiratory failure with hypercapnia; I46.9 Cardiac arrest, cause unspecified; I47.2 Ventricular tachycardia; I42.2 Other hypertrophic cardiomyopathy; R34 Anuria and oliguria; I50.9 Heart failure, unspecified; E78.5 Hyperlipidemia, unspecified; Z51.5 Encounter for palliative care; Z66 Do not resuscitate; E86.0 Dehydration; I08.1 Rheumatic disorders of both mitral and tricuspid valves; I25.2 Old myocardial infarction; I25.10 Atherosclerotic heart disease of native coronary artery without angina pectoris; E87.6 Hypokalemia; T37.8X5A Adverse effect of other specified systemic anti-infectives and antiparasitics, initial encounter; I45.81 Long QT syndrome; I11.0 Hypertensive heart disease with heart failure; I49.1 Atrial premature depolarization; I67.9 Cerebrovascular disease, unspecified; I44.0 Atrioventricular block, first degree; I49.3 Ventricular premature depolarization; R19.7 Diarrhea, unspecified; R94.01 Abnormal electroencephalogram [EEG]; R74.8 Abnormal levels of other serum enzymes; F41.9 Anxiety disorder, unspecified; K21.9 Gastro-esophageal reflux disease without esophagitis; E66.9 Obesity, unspecified; R11.2 Nausea with vomiting, unspecified; M19.90 Unspecified osteoarthritis, unspecified site; R53.1 Weakness; M75.101 Unspecified rotator cuff tear or rupture of right shoulder, not specified as traumatic; D72.829 Elevated white blood cell count, unspecified; M54.9 Dorsalgia, unspecified; M06.9 Rheumatoid arthritis, unspecified; F32.9 Major depressive disorder, single episode, unspecified; E03.9 Hypothyroidism, unspecified; M35.3 Polymyalgia rheumatica; M79.7 Fibromyalgia; G89.29 Other chronic pain; E87.70 Fluid overload, unspecified; Z68.37 Body mass index [BMI] 37.0-37.9, adult; Z90.49 Acquired absence of other specified parts of digestive tract; Z79.891 Long term (current) use of opiate analgesic; Z79.01 Long term (current) use of anticoagulants; Z79.52 Long term (current) use of systemic steroids; Z79.899 Other long term (current) drug therapy; Z81.8 Family history of other mental and behavioral disorders; Z82.3 Family history of stroke; Z82.49 Family history of ischemic heart disease and other diseases of the circulatory system; Z86.73 Personal history of transient ischemic attack (TIA), and cerebral infarction without residual deficits; Z80.1 Family history of malignant neoplasm of trachea, bronchus and lung; Z80.8 Family history of malignant neoplasm of other organs or systems; Z87.891 Personal history of nicotine dependence; Z88.5 Allergy status to narcotic agent; Z86.19 Personal history of other infectious and parasitic diseases
CPT/HCPCS: 31500; 36415; 36600; 43753; 51702; 70450; 71010; 71275; 74177; 80048; 80053; 80061; 81001; 82140; 82550; 82553; 82803; 82805; 83036; 83605; 83735; 83880; 84100; 84132; 84484; 85025; 85379; 85610; 85730; 87070; 87086; 87205; 92950; 93005; 93306; 93880; 94002; 94003; 94640; 95816; 96361; 96365; 96375; 99291

== ENCOUNTER 2016-04-26 19:06 | Inpatient (IN) | payer MEDICAID ==
[2016-04-26] MEDS ORDERED: ACETAMINOPHEN SUPPOSITORY 650 MG SUPP RECTAL PRN (19:12)
[2016-04-26] MEDS ORDERED: BISACODYL 10 MG SUPP RECTAL PRN (19:18)
[2016-04-26] MEDS ORDERED: ONDANSETRON 4 MG/2 ML VIAL IVP PRN (19:18)
[2016-04-26 19:34] VITALS: BMI 37.9
[2016-04-26] MEDS: LORazepam 2 MG/ML SYRINGE IV PRN (21:09)
[2016-04-27] MEDS: ATROPINE OPHTH SOLN 1% 5ML BTL SUBLINGUAL SCH ×8 (05:26→18:21)
[2016-04-27] MEDS: MORPHINE SULFATE 100 MG in SODIUM CHLORIDE 0.9% 100 ML IV SCH ×2 (05:26→09:25)
[2016-04-27] MEDS: LORazepam 2 MG/ML SYRINGE IV PRN (15:00)
[2016-04-27 15:24] VITALS: RESP 18
--- NOTE | 2016-04-27 17:06 | P.HPIM ---
History of Present Illness H&P Date: 04/27/16 Chief Complaint: Hospice care This is a 75-year-old female one of my patient with a previous medical history significant for hypertension and hypertensive cardio vascular disease with left ventricular hypertrophy, hyperlipidemia, history of atrial flutter/fibrillation status post 3 ablation therapy under the care of cardiology , rheumatoid arthritis, polymyalgia rheumatica, fibromyalgia, hypothyroidism, patient developed to have a significant upper respiratory tract infection that was treated about 10 days ago and the patient was feeling fine up until Wednesday when she started to feel bad again, yesterday she was talking to her daughter on the phone and the patient was having episodes of nausea vomiting and diarrhea for the past 48 hours, felt generally weak,and while she was talking with her daughter on the phone trying to get back to see her patient became unresponsive and the patient daughter got there and patient was laying in bed unresponsive according to her there was a pulse of that time period and after that she lost her pulse and she started CPR by herself and she called 911 at the same time and EMS where there within 5 minutes and according to the daughter due to the total downtime was not more than 10 minutes probably 15 minutes patient was intubated in the scene she was shocked once and she was transported to [facility] where she was placed on the ventilator she was given IV fluid resuscitation she was admitted to the hospital she had a computed tomography scan of the chest abdomen and pelvis without any acute abnormalities there was no evidence of pulmonary embolism, she had a computed tomography scan of the brain that did not show any evidence of acute abnormalities, patient was admitted to the hospital she was placed on the ventilator and she was seen in consultation by pulmonary medicine as well as by cardiology, her cardiac enzymes came back positive her troponin was slightly elevated suggestive of non-ST elevation MS. 04/23: Patient remains intubated and on mechanical ventilation. EEG was done that was limited with muscle artifact no obvious seizure activity. Repeat CAT scan of the brain showed no acute abnormalities. Patient was agitated and restless during the night and about tachypnea and tachycardia and hypertension. She was placed back on Diprivan. She was then noted to have prolonged QT interval and cardiology recommended amiodarone which seemed to worsen the QT prolongation and she had a short run of torsades and V. tach requiring defibrillation. She received magnesium with repeat dosing given this morning. Amiodarone was discontinued 2 feedings have been initiated. Urine output has been less than 10 mL and Lasix given. 04/24: Patient has been seen by Dr. Baez with recommendations to keep potassium greater than 4, magnesium greater than 2 and ovoid amiodarone. Possible need for dual chamber ICD. Patient is followed by neurology with concern for anoxic brain injury. EEG abnormal. She has been successfully extubated. She is awake and slow to respond. Hand hotel clerk equal and strong. She can tell her daughter "I love you." 04/27: Patient continued to decline over the weekend and family made her comfort care under [facility]. Patient is on morphine drip and appears to be comfortable. Review of Systems ROS unobtainable: due to mental status Past Medical History Past Medical History: Atrial Fibrillation, Atrial Flutter, CVA/TIA, Hyperlipidemia, Hypertension, Thyroid Disorder Additional Past Medical History / Comment(s): Polymyalgia rheumatica, hypothyroidism, hyperlipidemia, atrial fibrillation/flutter status post previous cardiac ablation History of Any Multi-Drug Resistant Organisms: None Reported Past Surgical History: Cardiac Ablation, Section, Cholecystectomy, Tonsillectomy Additional Past Surgical History / Comment(s): lower back surgery x2 Past Anesthesia/Blood Transfusion Reactions: No Reported Reaction Past Psychological History: Anxiety, Depression Smoking Status: Former smoker Past Alcohol Use History: None Reported Past Drug Use History: None Reported - Past Family History Mother Family Medical History: Cancer Additional Family Medical History / Comment(s): lung cancer, depression Father Family Medical History: AICD/Pacemaker, CVA/TIA Brother(s) Family Medical History: AFIB, Coronary Artery Disease (CAD) Sister(s) Family Medical History: No Reported History Daughter(s) Family Medical History: No Reported History Medications and Allergies Home Medications Medication Instructions Recorded Confirmed Type HYDROcodone/APAP 5-325MG [[place] 1 tab PO TID 04/25/15 04/26/16 History 5-325] Hydroxychloroquine Sulfate 200 mg PO BID 04/25/15 04/26/16 History [Plaquenil] Losartan Potassium [Cozaar] 25 mg PO DAILY 04/25/15 04/26/16 History Omeprazole [PriLOSEC] 40 mg PO BID 04/25/15 04/26/16 History Sertraline [Zoloft] 100 mg PO DAILY 04/25/15 04/26/16 History Simvastatin [Zocor] 20 mg PO HS 04/25/15 04/26/16 History Spironolactone [Aldactone] 12.5 mg PO Q48H 04/25/15 04/26/16 History Warfarin [Coumadin] 5 mg PO SUTH 04/25/15 04/26/16 History traMADol HCL [Ultram] 100 mg PO DAILY PRN 04/25/15 04/26/16 History Ascorbic Acid [Vitamin C] 500 mg PO DAILY 04/21/16 04/26/16 History Baicalin/Catechin [Limbrel 500 mg 500 mg PO BID 04/21/16 04/26/16 History Capsule] Bumetanide [Bumex] 0.5 mg PO Q48H 04/21/16 04/26/16 History Carisoprodol [Soma] 350 mg PO DIRECTED 04/21/16 04/26/16 History Cyanocobalamin (Vitamin B-12) 1,000 mcg PO DAILY 04/21/16 04/26/16 History [Vitamin B-12] Docusate Sodium [Dok] 100 - 300 mg PO HS 04/21/16 04/26/16 History Gabapentin [Neurontin] 600 mg PO BID 04/21/16 04/26/16 History [place]-3 Fatty Acids/Fish Oil [Fish 1 cap PO TID 04/21/16 04/26/16 History Oil 1,000 mg Softgel] Warfarin [Coumadin] 7.5 mg PO MOTUWEFRSA 04/21/16 04/26/16 History predniSONE 4 mg PO DAILY 04/21/16 04/26/16 History Levothyroxine Sodium [Synthroid] 175 mcg PO DAILY 04/22/16 04/26/16 History Allergies Allergy/AdvReac Type Severity Reaction Status Date / Time codeine Allergy Unknown Verified 04/21/16 20:43 meperidine HCl [From Demerol] Allergy Unknown Verified 04/21/16 20:43 Physical Exam Vitals: Intake and Output 04/26/16 04/27/16 04/27/16 22:59 06:59 14:59 Intake Total 12 Output Total 115 Balance -103 Intake: Intake, IV Titration 12 Amount Morphine Sulfate 100 mg 12 In Sodium Chloride 0.9% 100 ml @ 2 MG/HR 2.08 mls /hr IV .Q24H MAGAN Rx#: [id number] Output: Urine 115 Other: Voiding Method Indwelling Catheter Weight 103.3 kg General appearance: obese, no distress - EENT Eyes: no EOMI, no PERRLA, no scleral icterus, no normal appearance ENT: other (ET tube in andOGT in place.) Ears: bilateral: normal - Neck Neck: no lymphadenopathy, no rigidity, no stridor, no thyromegaly Carotids: bilateral: upstroke normal Thyroid: bilateral: normal size - Respiratory Respiratory: bilateral: diminished, negative: dullness, rales, rhonchi, wheezing , prolonged expiration, prolonged inspiration - Cardiovascular Rhythm: regular Heart sounds: normal: S1, S2 Abnormal Heart Sounds: systolic murmur, no rub - Gastrointestinal General gastrointestinal: decreased bowel sounds, soft, no splenomegaly, no tenderness, no umbilical hernia, no ventral hernia - Integumentary Integumentary: normal, normal turgor - Neurologic Neurologic: focal deficits - Psychiatric Psychiatric: No alert and O x3, no appropriate affect, no intact judgment & insight Thrombosis Risk Factor Assmnt - DVT/VTE Prophylaxis DVT/VTE Prophylaxis: Contraindicated - See note - Choose All That Apply Any of the Below Risk Factors Present?: Yes Each Factor Represents 1 point: Obesity (BMI >25) Other Risk Factors: Yes Each Risk Factor Represents 2 Points: Age 61-74 years Thrombosis Risk Factor Assessment Total Risk Factor Score: 3 Thrombosis Risk Factor Assessment Level: Moderate Risk Assessment and Plan Plan: 1. Acute hypoxic ventilator-dependent respiratory failure due to acute cardiopulmonary arrest followed by DC cardioversion 2. History of chronic atrial fibrillation/flutter post-ablation 3. 3. Hypertension and hypertensive cardiovascular disease. 4. Cardiac arrhythmia with non-ST elevation MS. 5. Hypothyroidism. 6. Hyperlipidemia. 7. Polymyalgia rheumatica. 8. Fibromyalgia. 9. History of CVA/TIA. 10. Oliguria 11. 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 Plan: continue morphine gtt, IV ativan, atropine gtts. Impression and plan of care have been directed as dictated by the signing physician. Johanna Sanford nurse practitioner acting as scribe for signing physician. Time with Patient: Greater than 30
[2016-04-28] MEDS: ATROPINE OPHTH SOLN 1% 5ML BTL SUBLINGUAL SCH ×11 (01:01→22:27)
[2016-04-28] MEDS: MORPHINE SULFATE 100 MG in SODIUM CHLORIDE 0.9% 100 ML IV SCH ×2 (01:36→17:30)
[2016-04-28 08:47] VITALS: BP 125/72
[2016-04-28] MEDS ORDERED: SCOPOLAMINE 1.5MG/72HR PATCH TRANSDERM PRN (12:00)
[2016-04-29 03:26] VITALS: PULSE 77
[2016-04-29] MEDS: ATROPINE OPHTH SOLN 1% 5ML BTL SUBLINGUAL SCH ×3 (03:56→11:11)
--- NOTE | 2016-04-29 09:52 | P.PN ---
Subjective This is a 75-year-old female one of my patient with a previous medical history significant for hypertension and hypertensive cardio vascular disease with left ventricular hypertrophy, hyperlipidemia, history of atrial flutter/fibrillation status post 3 ablation therapy under the care of cardiology , rheumatoid arthritis, polymyalgia rheumatica, fibromyalgia, hypothyroidism, patient developed to have a significant upper respiratory tract infection that was treated about 10 days ago and the patient was feeling fine up until Wednesday when she started to feel bad again, yesterday she was talking to her daughter on the phone and the patient was having episodes of nausea vomiting and diarrhea for the past 48 hours, felt generally weak,and while she was talking with her daughter on the phone trying to get back to see her patient became unresponsive and the patient daughter got there and patient was laying in bed unresponsive according to her there was a pulse of that time period and after that she lost her pulse and she started CPR by herself and she called 911 at the same time and EMS where there within 5 minutes and according to the daughter due to the total downtime was not more than 10 minutes probably 15 minutes patient was intubated in the scene she was shocked once and she was transported to [facility] where she was placed on the ventilator she was given IV fluid resuscitation she was admitted to the hospital she had a computed tomography scan of the chest abdomen and pelvis without any acute abnormalities there was no evidence of pulmonary embolism, she had a computed tomography scan of the brain that did not show any evidence of acute abnormalities, patient was admitted to the hospital she was placed on the ventilator and she was seen in consultation by pulmonary medicine as well as by cardiology, her cardiac enzymes came back positive her troponin was slightly elevated suggestive of non-ST elevation MS. 04/23: Patient remains intubated and on mechanical ventilation. EEG was done that was limited with muscle artifact no obvious seizure activity. Repeat CAT scan of the brain showed no acute abnormalities. Patient was agitated and restless during the night and about tachypnea and tachycardia and hypertension. She was placed back on Diprivan. She was then noted to have prolonged QT interval and cardiology recommended amiodarone which seemed to worsen the QT prolongation and she had a short run of torsades and V. tach requiring defibrillation. She received magnesium with repeat dosing given this morning. Amiodarone was discontinued 2 feedings have been initiated. Urine output has been less than 10 mL and Lasix given. 04/24: Patient has been seen by Dr. Baez with recommendations to keep potassium greater than 4, magnesium greater than 2 and ovoid amiodarone. Possible need for dual chamber ICD. Patient is followed by neurology with concern for anoxic brain injury. EEG abnormal. She has been successfully extubated. She is awake and slow to respond. 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 She can tell her daughter "I love you." 04/27: Patient continued to decline over the weekend and family made her comfort care under [facility]. Patient is on morphine drip and appears to be comfortable. 04/28: Patient remains on morphine drip. She appears to be comfortable. Multiple family members are at the bedside and questions were answered. Objective - Vital Signs Vital signs: Vital Signs Temp 99.5 F 04/28/16 07:00 Pulse 85 04/28/16 07:00 Resp 18 04/28/16 07:00 BP 125/72 04/28/16 07:00 Pulse Ox 96 04/28/16 07:00 Intake & Output 04/27/16 04/28/16 04/28/16 18:59 06:59 18:59 Intake Total 128 289.1 Output Total 200 Balance -72 289.1 Intake: IV 128 192 0.9@10 80 120 Morphine Sulfate 100 mg 48 72 In Sodium Chloride 0.9% 100 ml @ 2 MG/HR 2.08 mls /hr IV .Q24H MAGAN Rx#: [id number] Intake, IV Titration 97.1 Amount Morphine Sulfate 100 mg 97.1 In Sodium Chloride 0.9% 100 ml @ 2 MG/HR 2.08 mls /hr IV .Q24H MAGAN Rx#: [id number] Output: Urine 200 Other: Voiding Method Indwelling Catheter Indwelling Catheter Indwelling Catheter - Exam General appearance: obese, no distress - EENT Eyes: no EOMI, no PERRLA, no scleral icterus, no normal appearance ENT: other (ET tube in andOGT in place.) Ears: bilateral: normal - Neck Neck: no lymphadenopathy, no rigidity, no stridor, no thyromegaly Carotids: bilateral: upstroke normal Thyroid: bilateral: normal size - Respiratory Respiratory: bilateral: diminished, negative: dullness, rales, rhonchi, wheezing , prolonged expiration, prolonged inspiration - Cardiovascular Rhythm: regular Heart sounds: normal: S1, S2 Abnormal Heart Sounds: systolic murmur, no rub - Gastrointestinal General gastrointestinal: decreased bowel sounds, soft, no splenomegaly, no tenderness, no umbilical hernia, no ventral hernia - Integumentary Integumentary: normal, normal turgor - Neurologic Neurologic: focal deficits - Psychiatric Psychiatric: No alert and O x3, no appropriate affect, no intact judgment & insight Assessment and Plan Plan: 1. Acute hypoxic ventilator-dependent respiratory failure due to acute cardiopulmonary arrest followed by DC cardioversion 2. History of chronic atrial fibrillation/flutter post-ablation 3. 3. Hypertension and hypertensive cardiovascular disease. 4. Cardiac arrhythmia with non-ST elevation MS. 5. Hypothyroidism. 6. Hyperlipidemia. 7. Polymyalgia rheumatica. 8. Fibromyalgia. 9. History of CVA/TIA. 10. Oliguria 11. 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 Plan: continue morphine gtt, IV ativan, atropine gtts. Impression and plan of care have been directed as dictated by the signing physician. Johanna Sanford nurse practitioner acting as scribe for signing physician.
[2016-04-29] MEDS: MORPHINE SULFATE 100 MG in SODIUM CHLORIDE 0.9% 100 ML IV SCH (11:10)
--- NOTE | 2016-04-29 12:46 | P.PN ---
Subjective This is a 75-year-old female one of my patient with a previous medical history significant for hypertension and hypertensive cardio vascular disease with left ventricular hypertrophy, hyperlipidemia, history of atrial flutter/fibrillation status post 3 ablation therapy under the care of cardiology , rheumatoid arthritis, polymyalgia rheumatica, fibromyalgia, hypothyroidism, patient developed to have a significant upper respiratory tract infection that was treated about 10 days ago and the patient was feeling fine up until Wednesday when she started to feel bad again, yesterday she was talking to her daughter on the phone and the patient was having episodes of nausea vomiting and diarrhea for the past 48 hours, felt generally weak,and while she was talking with her daughter on the phone trying to get back to see her patient became unresponsive and the patient daughter got there and patient was laying in bed unresponsive according to her there was a pulse of that time period and after that she lost her pulse and she started CPR by herself and she called 911 at the same time and EMS where there within 5 minutes and according to the daughter due to the total downtime was not more than 10 minutes probably 15 minutes patient was intubated in the scene she was shocked once and she was transported to [facility] where she was placed on the ventilator she was given IV fluid resuscitation she was admitted to the hospital she had a computed tomography scan of the chest abdomen and pelvis without any acute abnormalities there was no evidence of pulmonary embolism, she had a computed tomography scan of the brain that did not show any evidence of acute abnormalities, patient was admitted to the hospital she was placed on the ventilator and she was seen in consultation by pulmonary medicine as well as by cardiology, her cardiac enzymes came back positive her troponin was slightly elevated suggestive of non-ST elevation DE. 04/23: Patient remains intubated and on mechanical ventilation. EEG was done that was limited with muscle artifact no obvious seizure activity. Repeat CAT scan of the brain showed no acute abnormalities. Patient was agitated and restless during the night and about tachypnea and tachycardia and hypertension. She was placed back on Diprivan. She was then noted to have prolonged QT interval and cardiology recommended amiodarone which seemed to worsen the QT prolongation and she had a short run of torsades and V. tach requiring defibrillation. She received magnesium with repeat dosing given this morning. Amiodarone was discontinued 2 feedings have been initiated. Urine output has been less than 10 mL and Lasix given. 04/24: Patient has been seen by Dr. Baez with recommendations to keep potassium greater than 4, magnesium greater than 2 and ovoid amiodarone. Possible need for dual chamber ICD. Patient is followed by neurology with concern for anoxic brain injury. EEG abnormal. She has been successfully extubated. She is awake and slow to respond. Hand program support specialist equal and strong. She can tell her daughter "I love you." 04/27: Patient continued to decline over the weekend and family made her comfort care under [facility]. Patient is on morphine drip and appears to be comfortable. 04/28: Patient remains on morphine drip. She appears to be comfortable. Multiple family members are at the bedside and questions were answered. 04/29: Maxwell added for scretions not controlled with Scopolomine and atropine. Many family members at bedside and questions answered. Objective - Vital Signs Vital signs: Vital Signs Temp 99.5 F 04/28/16 07:00 Pulse 77 04/29/16 00:00 Resp 18 04/29/16 00:00 BP 125/72 04/28/16 07:00 Pulse Ox 92 L 04/29/16 09:11 Intake & Output 04/28/16 04/29/16 04/29/16 18:59 06:59 18:59 Intake Total 223.241 64 Output Total 900 Balance 223.241 -836 Intake: IV 128 64 0.9@10 80 40 Morphine Sulfate 100 mg 48 24 In Sodium Chloride 0.9% 100 ml @ 2 MG/HR 2.08 mls /hr IV .Q24H MAGAN Rx#: [id number] Intake, IV Titration 95.241 Amount Morphine Sulfate 100 mg 95.241 In Sodium Chloride 0.9% 100 ml @ 2 MG/HR 2.08 mls /hr IV .Q24H MAGAN Rx#: [id number] Output: Urine 900 Other: Voiding Method Indwelling Catheter Indwelling Catheter Indwelling Catheter - Exam General appearance: obese, no distress - EENT Eyes: no EOMI, no PERRLA, no scleral icterus, no normal appearance ENT: other (ET tube in andOGT in place.) Ears: bilateral: normal - Neck Neck: no lymphadenopathy, no rigidity, no stridor, no thyromegaly Carotids: bilateral: upstroke normal Thyroid: bilateral: normal size - Respiratory Respiratory: bilateral: diminished, negative: dullness, rales, rhonchi, wheezing , prolonged expiration, prolonged inspiration - Cardiovascular Rhythm: regular Heart sounds: normal: S1, S2 Abnormal Heart Sounds: systolic murmur, no rub - Gastrointestinal General gastrointestinal: decreased bowel sounds, soft, no splenomegaly, no tenderness, no umbilical hernia, no ventral hernia - Integumentary Integumentary: normal, normal turgor - Neurologic Neurologic: focal deficits - Psychiatric Psychiatric: No alert and O x3, no appropriate affect, no intact judgment & insight Assessment and Plan Plan: 1. Acute hypoxic ventilator-dependent respiratory failure due to acute cardiopulmonary arrest followed by DC cardioversion 2. History of chronic atrial fibrillation/flutter post-ablation 3. 3. Hypertension and hypertensive cardiovascular disease. 4. Cardiac arrhythmia with non-ST elevation DE. 5. Hypothyroidism. 6. Hyperlipidemia. 7. Polymyalgia rheumatica. 8. Fibromyalgia. 9. History of CVA/TIA. 10. Oliguria 11. 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 Plan: continue morphine gtt, IV ativan, robinul and scopolomine. Impression and plan of care have been directed as dictated by the signing physician. Johanna Sanford nurse practitioner acting as scribe for signing physician. Time with Patient: Greater than 30
[2016-04-29] MEDS: GLYCOPYRROLATE 0.2 MG/ML 2 ML VIAL IVP SCH ×3 (14:07→20:43)
[2016-04-29 19:27] VITALS: TEMP 103
[2016-04-29] MEDS: LORazepam 2 MG/ML SYRINGE IV PRN (23:45)
[2016-04-30] MEDS: GLYCOPYRROLATE 0.2 MG/ML 2 ML VIAL IVP SCH ×2 (01:32→05:22)
[2016-04-30] MEDS: MORPHINE SULFATE 100 MG in SODIUM CHLORIDE 0.9% 100 ML IV SCH (02:16)
[2016-04-30] MEDS: LORazepam 2 MG/ML SYRINGE IV PRN (02:36)
--- NOTE | 2016-04-30 11:18 | P.DS ---
Providers Date of admission: 04/26/16 19:06 Expected date of discharge: 04/30/16 Attending physician: Tejas Richard Primary care physician: Tejas Richard [facility] Course: This is a 75-year-old female one of my patient with a previous medical history significant for hypertension and hypertensive cardio vascular disease with left ventricular hypertrophy, hyperlipidemia, history of atrial flutter/fibrillation status post 3 ablation therapy under the care of cardiology , rheumatoid arthritis, polymyalgia rheumatica, fibromyalgia, hypothyroidism, patient developed to have a significant upper respiratory tract infection that was treated about 10 days ago and the patient was feeling fine up until Wednesday when she started to feel bad again, yesterday she was talking to her daughter on the phone and the patient was having episodes of nausea vomiting and diarrhea for the past 48 hours, felt generally weak,and while she was talking with her daughter on the phone trying to get back to see her patient became unresponsive and the patient daughter got there and patient was laying in bed unresponsive according to her there was a pulse of that time period and after that she lost her pulse and she started CPR by herself and she called 911 at the same time and EMS where there within 5 minutes and according to the daughter due to the total downtime was not more than 10 minutes probably 15 minutes patient was intubated in the scene she was shocked once and she was transported to [facility] where she was placed on the ventilator she was given IV fluid resuscitation she was admitted to the hospital she had a computed tomography scan of the chest abdomen and pelvis without any acute abnormalities there was no evidence of pulmonary embolism, she had a computed tomography scan of the brain that did not show any evidence of acute abnormalities, patient was admitted to the hospital she was placed on the ventilator and she was seen in consultation by pulmonary medicine as well as by cardiology, her cardiac enzymes came back positive her troponin was slightly elevated suggestive of non-ST elevation ID. 04/23: Patient remains intubated and on mechanical ventilation. EEG was done that was limited with muscle artifact no obvious seizure activity. Repeat CAT scan of the brain showed no acute abnormalities. Patient was agitated and restless during the night and about tachypnea and tachycardia and hypertension. She was placed back on Diprivan. She was then noted to have prolonged QT interval and cardiology recommended amiodarone which seemed to worsen the QT prolongation and she had a short run of torsades and V. tach requiring defibrillation. She received magnesium with repeat dosing given this morning. Amiodarone was discontinued 2 feedings have been initiated. Urine output has been less than 10 mL and Lasix given. 04/24: Patient has been seen by Dr. Baez with recommendations to keep potassium greater than 4, magnesium greater than 2 and ovoid amiodarone. Possible need for dual chamber ICD. Patient is followed by neurology with concern for anoxic brain injury. EEG abnormal. She has been successfully extubated. She is awake and slow to respond. Hand property underwriter equal and strong. She can tell her daughter "I love you." 04/27: Patient continued to decline over the weekend and family made her comfort care under [facility]. Patient is on morphine drip and appears to be comfortable. 04/28: Patient remains on morphine drip. She appears to be comfortable. Multiple family members are at the bedside and questions were answered. 04/29: Robinul added for scretions not controlled with Scopolomine and atropine. Many family members at bedside and questions answered. 04/30: Patient passed on the morning of 04/30. Please see nursing documentation of details. Discharge Diagnoses: 1. Acute hypoxic ventilator-dependent respiratory failure due to acute cardiopulmonary arrest followed by DC cardioversion 2. History of chronic atrial fibrillation/flutter post-ablation 3. 3. Hypertension and hypertensive cardiovascular disease. 4. Cardiac arrhythmia with non-ST elevation ID. 5. Hypothyroidism. 6. Hyperlipidemia. 7. Polymyalgia rheumatica. 8. Fibromyalgia. 9. History of CVA/TIA. 10. Oliguria 11. 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 Impression and plan of care have been directed as dictated by the signing physician. Johanna Sanford nurse practitioner acting as scribe for signing physician. Patient Condition at Discharge: Undetermined Plan - Discharge Summary Discharge Medication List HYDROcodone/APAP 5-325MG [[place] 5-325] 1 tab PO TID 04/25/15 [History] Hydroxychloroquine Sulfate [Plaquenil] 200 mg PO BID 04/25/15 [History] Losartan Potassium [Cozaar] 25 mg PO DAILY 04/25/15 [History] Omeprazole [PriLOSEC] 40 mg PO BID 04/25/15 [History] Sertraline [Zoloft] 100 mg PO DAILY 04/25/15 [History] Simvastatin [Zocor] 20 mg PO HS 04/25/15 [History] Spironolactone [Aldactone] 12.5 mg PO Q48H 04/25/15 [History] Warfarin [Coumadin] 5 mg PO SUTH 04/25/15 [History] traMADol HCL [Ultram] 100 mg PO DAILY PRN 04/25/15 [History] Ascorbic Acid [Vitamin C] 500 mg PO DAILY 04/21/16 [History] Baicalin/Catechin [Limbrel 500 mg Capsule] 500 mg PO BID 04/21/16 [History] Bumetanide [Bumex] 0.5 mg PO Q48H 04/21/16 [History] Carisoprodol [Soma] 350 mg PO DIRECTED 04/21/16 [History] Cyanocobalamin (Vitamin B-12) [Vitamin B-12] 1,000 mcg PO DAILY 04/21/16 [ History] Docusate Sodium [Dok] 100 - 300 mg PO HS 04/21/16 [History] Gabapentin [Neurontin] 600 mg PO BID 04/21/16 [History] [place]-3 Fatty Acids/Fish Oil [Fish Oil 1,000 mg Softgel] 1 cap PO TID 04/21/16 [ History] Warfarin [Coumadin] 7.5 mg PO [id number] 04/21/16 [History] predniSONE 4 mg PO DAILY 04/21/16 [History] Levothyroxine Sodium [Synthroid] 175 mcg PO DAILY 04/22/16 [History] Discharge Disposition: - Preliminary Cause of Preliminary Cause of : Acute hypoxic ventilator-dependent respiratory failure due to acute cardiop
== END 2016-04-30 06:36 | disposition expired ==
LOC: 6ICU 19:06 → 5ONC 22:48
PROVIDERS: ADMIT Internal Medicine; ATTEND Internal Medicine
DX: I21.4 Non-ST elevation (NSTEMI) myocardial infarction (principal); J96.01 Acute respiratory failure with hypoxia; I46.9 Cardiac arrest, cause unspecified; G93.1 Anoxic brain damage, not elsewhere classified; I11.9 Hypertensive heart disease without heart failure; I48.2 Chronic atrial fibrillation; E03.9 Hypothyroidism, unspecified; E78.5 Hyperlipidemia, unspecified; M06.9 Rheumatoid arthritis, unspecified; M35.3 Polymyalgia rheumatica; M79.7 Fibromyalgia; Z51.5 Encounter for palliative care; Z86.73 Personal history of transient ischemic attack (TIA), and cerebral infarction without residual deficits
CPT/HCPCS: 94760